=== PATIENT | female | born 1955 | race Caucasian/White ===

== ENCOUNTER 2016-11-07 03:09 | Emergency (ER) | payer OTHER ==
--- NOTE | 2016-11-07 04:30 | PDOC ---
History of Present Illness - General Stated Complaint: SEVERE PAIN Time Seen by Provider: 11/07/16 04:08 Past History - Past Medical History Allergies/Adverse Reactions: Allergies Allergy/AdvReac Type Severity Reaction Status Date / Time No Known Drug Allergies Allergy Verified 11/07/16 04:32 Home Medications: Ambulatory Orders Morphine Sulfate [Cece] 40 mg PO BID 08/26/12 Aspirin [ASA -] 81 mg PO DAILY #30 tab.chew 12/15/13 Carvedilol [Coreg] 25 mg PO BID #60 tablet 12/15/13 Hydralazine HCl 50 mg PO TID #30 tablet 12/15/13 Levetiracetam [Keppra Oral Solution -] 500 mg PO BID #60 cup 12/15/13 Levothyroxine [Synthroid -] 25 mcg PO DAILY #30 tablet 12/15/13 Losartan Potassium [Cozaar -] 100 mg PO DAILY #30 tablet 12/15/13 Metoclopramide HCl [Reglan -] 5 mg PO DAILY #30 tablet 12/15/13 Nifedipine ER [Procardia XL -] 90 mg PO DAILY #30 tab.er.24 12/15/13 Pantoprazole Sodium [Protonix -] 40 mg PO DAILY #30 tablet.ec 12/15/13 Rosuvastatin [Crestor -] 40 mg PO HS #30 tablet 12/15/13 Lidocaine 5% Patch [Lidoderm -] 1 patch TP DAILY #30 patch 11/07/16 Methocarbamol [Robaxin -] 500 mg PO TID #30 tablet 11/07/16 Anemia: No Asthma: No Cancer: No Cardiac Disorders: Yes ([place] 2011 STENTS 5) CVA: No COPD: Yes CHF: No Dementia: No Diabetes: No GI Disorders: Yes (GERD) Disorders: No HTN: Yes Hypercholesterolemia: Yes Liver Disease: No Seizures: Yes (intubation as a result of 1 seizure episode) Thyroid Disease: Yes (HYPOTHYROIDISM) - Surgical History Abdominal Surgery: No Appendectomy: No Cardiac Surgery: Yes (stents x 5) Cholecystectomy: No Lung Surgery: No Neurologic Surgery: No Orthopedic Surgery: Yes (spinal) - Immunization History Td Vaccination: Yes Immunization Up to Date: Yes - Psycho/Social/Smoking Cessation Hx Anxiety: No Suicidal Ideation: No Smoking Status: Yes Smoking History: Current every day smoker Have you smoked in the past 12 months: Yes Number of Cigarettes Smoked Daily: 20 'Breaking Loose' booklet given: 03/13/12 Hx Alcohol Use: No Drug/Substance Use Hx: No Substance Use Type: None Hx Substance Use Treatment: No Review of Systems - Review of Systems HEENTM: No: Symptoms Reported, See HPI, Eye Pain, Blurred Vision, Tearing, Recent change in vision, Double Vision, Cataracts, Ear Pain, Ocular Prothesis, Ear Discharge, Nose Pain, Nose Congestion, Tinnitus, Nose Bleeding, Hearing Loss , Throat Pain, Throat Swelling, Mouth Pain, Dental Problems, Difficulty Swallowing, Mouth Swelling, Other Respiratory: Yes: Cough, Stridor, Wheezing, Other (pt is a smoker with copd). No: Symptoms reported, See HPI, Orthopnea, Shortness of Breath, SOB with Exertion, SOB at Rest, Productive cough, Hemoptysis Cardiac (ROS): No: Symptoms Reported, See HPI, Chest Pain, Edema, Irregular Heart Rate, Lightheadedness, Palpitations, Syncope, Chest Tightness, Other ABD/GI: No: Symptoms Reported, See HPI, Abdominal Distended, Abd. Pain w/ defecation, Blood Streaked Bowels, Constipated, Diarrhea, Difficulty Swallowing , Nausea, Poor Appetite, Poor Fluid Intake, Rectal Bleeding, Vomiting, Indigestion, Abdominal cramping, Tarry Stools, Other Musculoskeletal: Yes: Back Pain, Muscle Pain, Joint Stiffness Integumentary: No: Symptoms Reported, See HPI, Bruising, Change in Color, Change in Hair/Nails, Dryness, Erythema, Flushing, Lesions, Lumps, Pallor, Pruritus, Rash, Sweating, Other Neurological: No: Symptoms reported, See HPI, Headache, Numbness, Paresthesia, Pre-Existing Deficit, Seizure, Tingling, Tremors, Weakness, Unsteady Gait, Ataxia, Dizziness, Other *Physical Exam - Physical Exam General Appearance: Yes: Nourished, Thin HEENT: positive: EOMI, NIDHI, Normal ENT Inspection, Normal Voice, Symmetrical, TMs Normal, Pharynx Normal Neck: positive: Trachea midline Respiratory/Chest: positive: Lungs Clear, Normal Breath Sounds Cardiovascular: positive: Regular Rhythm, Regular Rate, S1, S2 Gastrointestinal/Abdominal: positive: Normal Bowel Sounds, Flat, Soft Musculoskeletal: positive: Normal Inspection Extremity: positive: Normal Capillary Refill, Normal Inspection Integumentary: positive: Normal Color, Dry, Warm Neurologic: positive: milling supervisor II-XII NML intact, Fully Oriented, Alert, Normal Mood/ Affect, Normal Response, Motor Strength 09/09 Medical Decision Making - Medical Decision Making 11/07/16 04:31 Patient Name: Meka Duffy Date: 1955 Address: [address] [place] [address] Sex: Female Rx Written Rx Dispensed Drug Quantity Days Supply Prescriber Name 10/14/2016 10/14/2016 oxycodone-acetaminophen 5-325 mg tab 90 30 Miles Huerta MD 10/14/2016 10/14/2016 morphine sulf er 15 mg tablet 30 30 Miles Huerta MD 09/09/2016 09/09/2016 oxycodone-acetaminophen 7.5-325 mg tablet 90 30 Miles Huerta MD 08/10/2016 08/10/2016 oxycodone-acetaminophen 5-325 mg tab 90 30 Miles Huerta MD 07/11/2016 07/11/2016 oxycodone-acetaminophen 5-325 mg tab 60 30 Miles Huerta MD 06/22/2016 06/23/2016 morphine sulfate ir 15 mg tab 60 30 Miles Huerta MD 06/22/2016 06/22/2016 nucynta 50 mg tablet 30 15 Miles Huerta MD 06/08/2016 06/08/2016 oxycodone-acetaminophen 7.5-325 mg tablet 90 30 Miles Huerta MD 05/24/2016 05/27/2016 oxycodone-acetaminophen 7.5-325 mg tablet 14 7 Linda Millan MD 05/24/2016 05/24/2016 morphine sulf er 15 mg tablet 60 30 Linda Millan MD 04/29/2016 04/30/2016 morphine sulf er 15 mg tablet 50 25 Miles Huerta MD 04/29/2016 04/30/2016 oxycodone-acetaminophen 5-325 mg tab 60 30 Miles Huerta MD 04/06/2016 04/06/2016 morphine sulf er 15 mg tablet 60 30 Linda Millan MD 04/06/2016 04/06/2016 oxycodone-acetaminophen 5-325 mg tab 60 30 Linda Millan MD 03/08/2016 03/09/2016 oxycodone-acetaminophen 5-325 mg tab 60 30 MontyLinda cotto MD 03/08/2016 03/09/2016 morphine sulf er 15 mg tablet 60 30 Monty, Linda VELÁSQUEZ 02/05/2016 02/05/2016 oxycodone-acetaminophen 5-325 mg tab 60 30 Miles Huerta MD 02/05/2016 02/05/2016 morphine sulf er 15 mg tablet 50 25 Miles Huerta MD 01/06/2016 01/06/2016 oxycodone-acetaminophen 5-325 mg tab 70 23 Monty, Linda VELÁSQUEZ 01/06/2016 01/06/2016 morphine sulf er 15 mg tablet 60 30 Monty, Linda VELÁSQUEZ 12/09/2015 12/09/2015 oxycodone-acetaminophen 5-325 mg tab 60 30 Monty, Linda VELÁSQUEZ 12/09/2015 12/09/2015 morphine sulf er 15 mg tablet 60 30 Monty, Linda VELÁSQUEZ 11/25/2015 11/26/2015 zaleplon 5 mg capsule 30 30 Anabela Zabala MD 11/07/16 05:31 Pt comes with chronic back pains and states that her meds are not working. She has sufficient meds at home. We discussed the dancers of narcotic meds. She is willing to try toradol and muscle relaxants here. I will send her home with lidoderm patch and muscle relaxants. *DC/Admit/Observation/Transfer Diagnosis at time of Disposition: Sciatica - Discharge Dispostion Disposition: HOME Condition at time of disposition: Stable Admit: No - Prescriptions Prescriptions: Lidocaine 5% Patch [Lidoderm -] 1 patch TP DAILY #30 patch Methocarbamol [Robaxin -] 500 mg PO TID #30 tablet - Referrals Referrals: Kareem Zabala MD [Primary Care Provider] - - Patient Instructions Printed Discharge Instructions: Managing Chronic Low Back Pain
[2016-11-07] MEDS ORDERED: KETOROLAC TROMETHAMINE 60 MG/2 ML VIAL IM ONE (04:31)
[2016-11-07] MEDS ORDERED: METHOCARBAMOL 500 MG TABLET PO ONE (04:32)
[2016-11-07] MEDS ORDERED: KETOROLAC TROMETHAMINE 60 MG/2 ML VIAL ONE (04:37)
[2016-11-07] MEDS ORDERED: METHOCARBAMOL 500 MG TABLET ONE (04:37)
[2016-11-07 04:40] VITALS: BP 161/98; PULSE 73; TEMP 97.6; BMI 18.8
== END 2016-11-07 04:49 | disposition home or self-care (01) ==
LOC: JER 03:09
PROC: 3E0233Z Introduction of Anti-inflammatory into Muscle, Percutaneous Approach (ICD-10-PCS; principal; 2016-11-07)
DX: M54.40 Lumbago with sciatica, unspecified side (principal); I25.2 Old myocardial infarction; I11.9 Hypertensive heart disease without heart failure; F17.210 Nicotine dependence, cigarettes, uncomplicated; Z95.5 Presence of coronary angioplasty implant and graft; J44.9 Chronic obstructive pulmonary disease, unspecified; K21.9 Gastro-esophageal reflux disease without esophagitis; E03.9 Hypothyroidism, unspecified; E78.00 Pure hypercholesterolemia, unspecified; Z86.69 Personal history of other diseases of the nervous system and sense organs
CPT/HCPCS: 96372; 99282-25

== ENCOUNTER 2017-03-26 07:21 | Inpatient (IN) | payer MEDICARE, OTHER ==
[2017-03-26] MEDS ORDERED: ONDANSETRON 4 MG/2 ML VIAL IVPUSH ONE (07:36)
[2017-03-26] MEDS ORDERED: SODIUM CHLORIDE 1,000 ML IV STA (07:36)
--- NOTE | 2017-03-26 07:38 | PDOC ---
History of Present Illness - General Chief Complaint: Seizure Stated Complaint: SEIZURE Time Seen by Provider: 03/26/17 07:27 - History of Present Illness Initial Comments: 03/26/17 08:10 The patient is a 61 year old female with a history of HTN, HLD, Seizures, Pancreatitis with cyclical vomiting syndrome who presents for evaluation following a seizure. The patient is accompanied by her son who assists in providing the history. The son reports that he found the patient in a post- ictal state this morning immediately after an witnessed seizure. They report that the patient has been having multiple episodes of non-bilious, non-bloody vomiting over the past 3-4 days due to her cyclical vomiting syndrome. They state that the patient's last seizure was over 2 years ago and that this is how the patient usually presents with seizures. They state that she goes through bouts of cyclical vomiting and then has a seizure. She reports that she is on keppra and is compliant with her medication. She denies any fevers, chills, SOB , chest pain, abdominal pain, or changes with urination or bowel movements. Past History - Past Medical History Allergies/Adverse Reactions: Allergies Allergy/AdvReac Type Severity Reaction Status Date / Time No Known Drug Allergies Allergy Verified 03/26/17 07:30 Home Medications: Ambulatory Orders Carvedilol [Coreg -] 12.5 mg PO BID 03/26/17 Ibuprofen 600 mg PO DAILY 03/26/17 Levetiracetam [Keppra -] 500 mg PO Q12H 03/26/17 Levothyroxine [Synthroid -] 25 mcg PO DAILY 03/26/17 Losartan Potassium 100 mg PO DAILY 03/26/17 Morphine Sulfate 15 mg PO DAILY 03/26/17 Nifedipine ER [Procardia Xl -] 60 mg PO DAILY 03/26/17 Oxycodone HCl/Acetaminophen [Percocet 5-325 mg Tablet] 1 tab PO BID PRN Anemia: No Asthma: No Cancer: No Cardiac Disorders: Yes ([place] 2010 STENTS 5) CVA: No COPD: Yes CHF: No DVT: No Dementia: No Diabetes: No GI Disorders: Yes (GERD) Disorders: No HTN: Yes Hypercholesterolemia: Yes Liver Disease: No Seizures: Yes (intubation as a result of 1 seizure episode) Thyroid Disease: Yes (HYPOTHYROIDISM) - Surgical History Abdominal Surgery: No Appendectomy: No Cardiac Surgery: Yes (stents x 5) Cholecystectomy: No Lung Surgery: No Neurologic Surgery: No Orthopedic Surgery: Yes (spinal) - Immunization History Td Vaccination: Yes Immunization Up to Date: Yes - Suicide/Smoking/Psychosocial Hx Smoking Status: Yes Smoking History: Current every day smoker Have you smoked in the past 12 months: Yes Number of Cigarettes Smoked Daily: 20 Information on smoking cessation initiated: No 'Breaking Loose' booklet given: 03/13/12 Hx Alcohol Use: No Drug/Substance Use Hx: No Substance Use Type: None Hx Substance Use Treatment: No Review of Systems - Review of Systems Comments:: 03/26/17 08:18 Constitutional: No fevers, chills, fatigue, malaise HEENT: No Rhinorrhea, nasal congestion, visual changes Cardiovascular: No chest pain, syncope, palpitations, lightheadedness Respiratory: No Cough, SOB, Hemoptysis, Gastrointestinal: Nausea, vomiting. No Abdominal pain, Constipation, Diarrhea, Melena Genitourinary: No Dysuria, Frequency, Urgency, Hesitancy, Hematuria, Flank pain Musculoskeletal: No Myalgia, arthralgia Skin: No rashes, bruising, pallor Neurologic: Seizure. No Headache, Dizziness, Numbness, Weakness, or Tingling Psychiatric: No Hallucinations. No SI or HI *Physical Exam - Vital Signs Last Vital Signs Temp Pulse Resp BP Pulse Ox 97.9 F 77 17 178/85 96 03/26/17 07:25 03/26/17 07:25 03/26/17 07:25 03/26/17 07:25 03/26/17 07:25 - Physical Exam Comments: 03/26/17 08:19 General Appearance: Nourished. No Apparent Distress HEENT: EOMI, NIDHI. No Pharyngeal Erythema, Tonsillar Exudate, Tonsillar Erythema Neck: No Cervical Lymphadenopathy Respiratory/Chest: Lungs Clear, Normal Breath Sounds. No Crackles, Rales, Rhonchi, Wheezing Cardiovascular: Regular Rhythm, Regular Rate. No Murmur, Gallops, Rubs Gastrointestinal/Abdominal: Normal Bowel Sounds, Soft. No Guarding, Rebound, Tenderness Musculoskeletal: No CVA Tenderness Extremity: Normal Capillary Refill Integumentary: Normal Color, Dry, Warm Neurologic: template reproduction technician II-XII NML intact, Fully Oriented, Alert, Normal Mood/Affect, Normal Response, Motor Strength 5/5. Heart Score/ECG Review #1 ECG reviewed & interpreted by me at: 14:20 General ECG Interpretation: Sinus Rhythm, Normal Rate, Normal Intervals, No acute ischemic changes Compared to previous ECG there are: No significant change (12/10/13) ED Treatment Course - LABORATORY CBC & Chemistry Diagram: 03/26/17 07:45 03/26/17 09:00 - RADIOLOGY Radiology Studies Ordered: Category Date Time Status CHEST PA & LAT [RAD] Stat Radiology 03/26/17 07:35 Ordered Medical Decision Making - Medical Decision Making 03/26/17 08:20 The patient is a 61 year old female with a history of HTN, HLD, Seizures, Pancreatitis with cyclical vomiting syndrome who presents for evaluation following a seizure. Differential includes but is not limited to: Primary seizure disorder, acs, pneumonia, uti, infectious, metabolic derangement. Given the patient's history, it is likely her symptoms are due to her primary seizure disorder in the setting of her vomiting. We have a low suspicion for acs at this time, but will send a cbc, cmp, lipase, troponin, UA and chest plain film to evaluate for other etiologies. We will treat her with pepcid, zofran, and iv fluids and continue to monitor and reassess. 03/26/17 09:22 Patient had a witnessed generalized tonic clonic seizure here in the ED that lasted for approximately 1 min. Patient was placed on a non-rebreather. She was given 2 mg of iv ativan and started on 500mg of keppra. The patient's daughter reports that the patient has been having headaches over the past few weeks. Given her second seizure today, we will obtain a head ct to evaluate further. The patient will likely require admission for further management of her symptoms and possible medication adjustment given that this is her second seizure in one day. The patient's family informed us that the patient's primary is Dr. Kareem Zabala. 03/26/17 10:10 cbc, demonstrates a wbc elevation to 13.5. cmp is remarkable for a hyponatremia of 123 and potassium of 3.1. Chest plain film is does not demonstrate any acute process as read by our radiologist. We discussed the case with Dr. Crespo with Neurology who has been made aware of the case. He recommended starting the patient on 750mg of Keppra BID starting this evening after admission. 03/26/17 11:03 We discussed with the ICU SENIOR DIRECTOR MARKETING who believes the patient is safe for tele floor admission. We agree given the patient's clinical status. Dr. Sy has been paged for admission. Awaiting call back. 03/26/17 11:07 Discussed the patient with Dr. Sy who accepted the patient for admission. 03/26/17 12:[address] does not demonstrate any acute processes as read by our radiologist. *DC/Admit/Observation/Transfer Diagnosis at time of Disposition: Seizure, Hyponatremia - Discharge Dispostion Condition at time of disposition: Guarded Admit: Yes - Referrals - Patient Instructions - Post Discharge Activity
[2017-03-26] MEDS ORDERED: FAMOTIDINE 20 MG/50 ML IVPB 20 MG/50 ML MG IVPB ONE ×2 (07:45→07:54)
[2017-03-26] MEDS ORDERED: ONDANSETRON 4 MG/2 ML VIAL ONE (07:53)
--- NOTE | 2017-03-26 08:20 | PDOC ---
Attending Attestation - Resident Resident Name: Lucas Wilks - ED Attending Attestation I have performed the following: I have examined & evaluated the patient, The case was reviewed & discussed with the resident, I agree w/resident's findings & plan, Exceptions are as noted - HPI HPI: 03/26/17 08:17 78-year-old female history of cyclical vomiting, chronic pancreatitis, seizure disorder on 500 mg of Keppra twice a day, adherent to her medications managed by her primary care physician presents to the emergency department for rule out seizure. This was witnessed by her son. Patient reports that she has been vomiting which is chronic for her. Today, patient had no recollection but her son witnessed short episode of seizure. She was postictal and now is back to baseline. Patient is no pain at this time. Denies recent illnesses, fevers, chills, cough. - Physicial Exam PE: 03/26/17 08:18 GENERAL: Awake, alert, and fully oriented, in no acute distress. HEAD: No signs of trauma EYES: PERRLA, EOMI, sclera anicteric, conjunctiva clear ENT: Auricles normal inspection NECK: Normal ROM, supple LUNGS: Breath sounds equal, clear to auscultation bilaterally. No wheezes, and no crackles HEART: Regular rate and rhythm, normal S1 and S2, no murmurs, rubs or gallops ABDOMEN: Soft, nontender, normoactive bowel sounds. No guarding, no rebound. No masses EXTREMITIES: Normal range of motion, no edema. No clubbing or cyanosis. No cords, erythema, or tenderness NEUROLOGICAL: Cranial nerves II through XII intact. Normal speech. 5/5 strength upper and lower extremities. Sensation intact throughout. SKIN: Warm, Dry, normal turgor, no rashes or lesions noted. - Critical Care Time Total Critical Care Time: 35 Critical Care Statement: The care of this patient involved high complexity decision making to prevent further life threatening deterioration of the patient 's condition and/or to evaluate & treat vital organ system(s) failure or risk of failure. - Medical Decision Making 03/26/17 08:19 Vital Signs Temp Pulse Resp BP Pulse Ox 97.9 F 77 16 178/85 96 03/26/17 07:25 03/26/17 07:25 03/26/17 08:09 03/26/17 07:25 03/26/17 08:07 The patient is back to her baseline. I suspect this is likely her primary epilepsy disorder. However, rule out secondary causes such as metabolic disarray. Low suspicion for acute coronary syndrome. If workup is negative and the patient feels well, patient be discharged home with her family with primary care physician follow-up. 03/26/17 09:20 CBC, BMP 03/26/17 07:45 Approx 9:15 am, patient had another witnessed grand mal seizure. Pt was given IV ativan, and seizures had stopped. 500 mg IV keppra ordered. Pt is now post ictal but protecting airway. Pt's family tells us that she has had headaches for the last several days. Given that patient has not have a last seizure 2 years, will obtain a head CT. Ultimately, patient should be admitted to the hospital with neurology consultation. 03/26/17 12:03 CMP Sodium 123 mmol/L (136-145) L* D 03/26/17 09:00 Potassium 3.1 mmol/L (3.5-5.1) L 03/26/17 09:00 Chloride 85 mmol/L (98-107) L D 03/26/17 09:00 Carbon Dioxide 30 mmol/L (21-32) 03/26/17 09:00 Anion Gap 8 (8-16) 03/26/17 09:00 BUN 5 mg/dL (7-18) L 03/26/17 09:00 Creatinine 0.8 mg/dL (0.55-1.02) 03/26/17 09:00 Creat Clearance w eGFR > 60 (>60) 03/26/17 09:00 Random Glucose 115 mg/dL (74-106) H 03/26/17 09:00 Calcium 7.9 mg/dL (8.5-10.1) L 03/26/17 09:00 Total Bilirubin 0.5 mg/dL (0.2-1.0) D 03/26/17 09:00 AST 17 U/L (15-37) 03/26/17 09:00 ALT 11 U/L (12-78) L 03/26/17 09:00 Alkaline Phosphatase 127 U/L (45-117) H D 03/26/17 09:00 Creatine Kinase 134 IU/L (26-192) 03/26/17 09:00 Troponin I 0.02 ng/ml (0.00-0.05) 03/26/17 09:00 Total Protein 6.1 g/dl (6.4-8.2) L D 03/26/17 09:00 Albumin 3.1 g/dl (3.4-5.0) L D 03/26/17 09:00 Lipase 118 U/L (73-393) 03/26/17 09:00 Noted to have a Sodium of 123. Pt already received 1L of IV NS. Will need to take caution with IVF given risk of central pontine myelosis. Head CT reviewed and is negative. Case discussed with Dr. Crespo with Dr. Wilks Recommends 750 mg IV keppra. Case discussed with ICU DINING SERVICES MANAGER Eder, who states that if patient head CT negative and does not have repeat seizures, pt cleared for telemetry admission. Will admit patient to telemetry. <Eyal Pruitt - Last Filed: 03/26/17 12:03> - Medical Decision Making 03/26/17 09:37 Dr. Crespo, neurologist, was paged requesting a call back for doctor to doctor consult. 03/26/17 10:04 Dr. Crespo, neurologist, was paged a second time requesting a call back for doctor to doctor consult. 03/26/17 12:59 Family Contact Information: 1st) Kolton Duffy ([phone]) 2nd) Ivonne Rome (C: [phone]/H: [phone]) <Padmini Wild - Last Filed: 03/26/17 13:00> Heart Score/ECG Review #1 ECG reviewed & interpreted by me at: 07:25 03/26/17 08:19 NSR 77, LVH, TWI III, avF, no std/geoff, QTC 475 msec <Eyal Pruitt - Last Filed: 03/26/17 12:03>
[2017-03-26 08:33] LABS: BASOPHIL 0.7 % (0-2.0); EOSINOPHIL 0.6 % (0-4.5); MCH 32.4 pg (25.7-33.7); MCHC 35.3 g/dl (32.0-36.0); MEAN CELL VOLUME 91.8 fl (80-96); NEUTROPHILS 60.7 % (42.8-82.8); PLATELET COUNT 356 K/MM3 (134-434); RDW 13.4 % (11.6-15.6); WHITE BLOOD COUNT 13.8 K/mm3 (4.0-10.0)
[2017-03-26] MEDS ORDERED: LORazepam 2 MG/ML SDV VIAL ONE ×3 (09:08→10:35)
[2017-03-26] MEDS ORDERED: levETIRAcetam 500 MG/5 ML INJECTION VIAL IVPB ONE ×2 (09:09→09:16)
[2017-03-26] MEDS ORDERED: HEMOQUE CONTROL SOLUTION ONE (09:16)
[2017-03-26 09:32] LABS: ALBUMIN 3.1 g/dl (3.4-5.0); ANION GAP 8 (8-16); BILIRUBIN,TOTAL 0.5 mg/dL (0.2-1.0); CALCIUM 7.9 mg/dL (8.5-10.1); CO2 30 mmol/L (21-32); CREATININE 0.8 mg/dL (0.55-1.02); GLUCOSE,RANDOM 115 mg/dL (74-106); SGOT/AST 17 U/L (15-37); SGPT/ALT 11 U/L (12-78); TOT PROT 6.1 g/dl (6.4-8.2)
[2017-03-26 09:33] LABS: ALK PHOS 127 U/L (45-117); TROPONIN I 0.02 ng/ml (0.00-0.05)
[2017-03-26 11:21] LABS: URINE APPEARANCE CLEAR; URINE BILIRUBIN NEGATIVE (NEGATIVE); URINE BLOOD NEGATIVE (NEGATIVE); URINE COLOR STRAW; URINE GLUCOSE (UA) NEGATIVE (NEGATIVE); URINE KETONE NEGATIVE (NEGATIVE); URINE NITRITE NEGATIVE (NEGATIVE); URINE PROTEIN NEGATIVE (NEGATIVE); URINE UROBILINOGEN NEGATIVE mg/dL (0.2-1.0)
[2017-03-26 13:33] VITALS: BMI 17.6
[2017-03-26 14:04] LABS: URINE LEUK ESTERASE Negative (NEGATIVE)
--- NOTE | 2017-03-26 15:48 | CONSULT ---
Consult - text type - Consultation Consultation Note: Neurology History of Present Illness The patient is a 61 year old female with a history of HTN, HLD, Seizures, Pancreatitis with cyclical vomiting syndrome who presented for evaluation following a seizure. The son reported that he found the patient in a post- ictal state morning of admission immediately after an witnessed seizure. Reportedly, the patient had been having multiple episodes of non-bilious, non- bloody vomiting over the past 3-4 days due to her cyclical vomiting syndrome. They state that the patient's last seizure was over 2 years ago and that this is how the patient usually presents with seizures. They state that she goes through bouts of cyclical vomiting and then has a seizure. She reports that she is on keppra and is compliant with her medication. CT head reviewed and did not show acute changes. I had spoken to the ER earlier and labs were notable for Hyponatremia and Hypokalemia, both of which can precipitate seizures. However, i did recommend increasing Keppra to 750mg twice daily because she had a second seizure on admission. Correcting underlying electrolyte abnormalities would be most effecting in preventing subsequent seizures. Admitted for further observation and management. Past History - Past Medical History Allergies/Adverse Reactions: Allergies Allergy/AdvReac Type Severity Reaction Status Date / Time No Known Drug Allergies Allergy Verified 03/26/17 07:30 Home Medications: Ambulatory Orders Carvedilol [Coreg -] 12.5 mg PO BID 03/26/17 Ibuprofen 600 mg PO DAILY 03/26/17 Levetiracetam [Keppra -] 500 mg PO Q12H 03/26/17 Levothyroxine [Synthroid -] 25 mcg PO DAILY 03/26/17 Losartan Potassium 100 mg PO DAILY 03/26/17 Morphine Sulfate 15 mg PO DAILY 03/26/17 Nifedipine ER [Procardia Xl -] 60 mg PO DAILY 03/26/17 Oxycodone HCl/Acetaminophen [Percocet 5-325 mg Tablet] 1 tab PO BID PRN Anemia: No Asthma: No Cancer: No Cardiac Disorders: Yes (AR 2010 STENTS 5) CVA: No COPD: Yes CHF: No DVT: No Dementia: No Diabetes: No GI Disorders: Yes (GERD) Disorders: No HTN: Yes Hypercholesterolemia: Yes Liver Disease: No Seizures: Yes (intubation as a result of 1 seizure episode) Thyroid Disease: Yes (HYPOTHYROIDISM) - Surgical History Abdominal Surgery: No Appendectomy: No Cardiac Surgery: Yes (stents x 5) Cholecystectomy: No Lung Surgery: No Neurologic Surgery: No Orthopedic Surgery: Yes (spinal) - Immunization History Td Vaccination: Yes Immunization Up to Date: Yes - Suicide/Smoking/Psychosocial Hx Smoking Status: Yes Smoking History: Current every day smoker Have you smoked in the past 12 months: Yes Number of Cigarettes Smoked Daily: 20 Information on smoking cessation initiated: No 'Breaking Loose' booklet given: 03/13/12 Hx Alcohol Use: No Drug/Substance Use Hx: No Substance Use Type: None Hx Substance Use Treatment: No Review of Systems Constitutional: No fevers, chills, fatigue, malaise HEENT: No Rhinorrhea, nasal congestion, visual changes Cardiovascular: No chest pain, syncope, palpitations, lightheadedness Respiratory: No Cough, SOB, Hemoptysis, Gastrointestinal: Nausea, vomiting. No Abdominal pain, Constipation, Diarrhea, Melena Genitourinary: No Dysuria, Frequency, Urgency, Hesitancy, Hematuria, Flank pain Musculoskeletal: No Myalgia, arthralgia Skin: No rashes, bruising, pallor Neurologic: Seizure. No Headache, Dizziness, Numbness, Weakness, or Tingling Psychiatric: No Hallucinations. No SI or HI *Physical Exam - Vital Signs Last Vital Signs Temp Pulse Resp BP Pulse Ox 97.9 F 77 17 178/85 96 03/26/17 07:25 03/26/17 07:25 03/26/17 07:25 03/26/17 07:25 03/26/17 07:25 General Appearance: Nourished. No Apparent Distress HEENT: EOMI, NIDHI. No Pharyngeal Erythema, Tonsillar Exudate, Tonsillar Erythema Neck: No Cervical Lymphadenopathy Respiratory/Chest: Lungs Clear, Normal Breath Sounds. No Crackles, Rales, Rhonchi, Wheezing Cardiovascular: Regular Rhythm, Regular Rate. No Murmur, Gallops, Rubs Gastrointestinal/Abdominal: Normal Bowel Sounds, Soft. No Guarding, Rebound, Tenderness Musculoskeletal: No CVA Tenderness Extremity: Normal Capillary Refill Integumentary: Normal Color, Dry, Warm Neurologic: tape making machine operator II-XII NML intact, Fully Oriented, Alert, Normal Mood/Affect, Normal Response, Motor Strength 5/5. Heart Score/ECG Review #1 ECG reviewed & interpreted by me at: 14:20 General ECG Interpretation: Sinus Rhythm, Normal Rate, Normal Intervals, No acute ischemic changes Compared to previous ECG there are: No significant change (12/10/13) CBCD WBC 13.8 K/mm3 (4.0-10.0) H D 03/26/17 07:45 RBC 4.86 M/mm3 (3.60-5.2) D 03/26/17 07:45 Hgb 15.8 GM/dL (10.7-15.3) H D 03/26/17 07:45 Hct 44.6 % (32.4-45.2) D 03/26/17 07:45 MCV 91.8 fl (80-96) 03/26/17 07:45 MCHC 35.3 g/dl (32.0-36.0) 03/26/17 07:45 RDW 13.4 % (11.6-15.6) 03/26/17 07:45 Plt Count 356 K/MM3 (134-434) D 03/26/17 07:45 MPV 8.0 fl (7.5-11.1) 03/26/17 07:45 CMP Sodium 123 mmol/L (136-145) L* D 03/26/17 09:00 Potassium 3.1 mmol/L (3.5-5.1) L 03/26/17 09:00 Chloride 85 mmol/L (98-107) L D 03/26/17 09:00 Carbon Dioxide 30 mmol/L (21-32) 03/26/17 09:00 Anion Gap 8 (8-16) 03/26/17 09:00 BUN 5 mg/dL (7-18) L 03/26/17 09:00 Creatinine 0.8 mg/dL (0.55-1.02) 03/26/17 09:00 Creat Clearance w eGFR > 60 (>60) 03/26/17 09:00 Calcium 7.9 mg/dL (8.5-10.1) L 03/26/17 09:00 Total Bilirubin 0.5 mg/dL (0.2-1.0) D 03/26/17 09:00 AST 17 U/L (15-37) 03/26/17 09:00 ALT 11 U/L (12-78) L 03/26/17 09:00 Alkaline Phosphatase 127 U/L (45-117) H D 03/26/17 09:00 Total Protein 6.1 g/dl (6.4-8.2) L D 03/26/17 09:00 Albumin 3.1 g/dl (3.4-5.0) L D 03/26/17 09:00 CT head reviewed Medical Decision Making 61 year old female with a history of HTN, HLD, Seizures, Pancreatitis with cyclical vomiting syndrome who presented for evaluation following a seizure. The son reported that he found the patient in a post-ictal state morning of admission immediately after an witnessed seizure. Reportedly, the patient had been having multiple episodes of non-bilious, non-bloody vomiting over the past 3-4 days due to her cyclical vomiting syndrome. They state that the patient's last seizure was over 2 years ago and that this is how the patient usually presents with seizures. They state that she goes through bouts of cyclical vomiting and then has a seizure. She reports that she is on keppra and is compliant with her medication. I had spoken to the ER earlier and labs were notable for Hyponatremia and Hypokalemia, both of which can precipitate seizures. Recommend increasing Keppra to 750mg twice daily because she had a second seizure on admission. Correcting underlying electrolyte abnormalities would be most effecting in preventing subsequent seizures. Admitted for further observation and management Anti-emetics for cyclic vomiting Increased PO/IV hydration Monitor BP, maintain < 140/90 Continue losartan, coreg, procardia recheck electrolytes Monitor for seizures Ativan PRN
--- NOTE | 2017-03-26 21:54 | HP ---
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 Cardiovascular: Yes: CAD, HTN, Hyperlipdemia, PA, Other (carotid artery disease s/p CEA) Pulmonary: Yes: COPD Gastrointestinal: Yes: Constipation Musculoskeletal: Yes: Chronic low back pain - Past Surgical History Past Surgical History: Yes: Carotid Endarterectomy - Smoking History Smoking history: Current every day smoker Have you smoked in the past 12 months: Yes Aproximately how many cigarettes per day: 20 - Alcohol/Substance Use Hx Alcohol Use: No Number of Drinks Daily: 10 History of Substance Use: reports: Marijuana (Daily), Prescription (morphine 75 mg per day) - Social History ADL: Independent Home Medications - Allergies Allergies/Adverse Reactions: Allergies Allergy/AdvReac Type Severity Reaction Status Date / Time No Known Drug Allergies Allergy Verified 03/26/17 07:30 - Home Medications Home Medications: Ambulatory Orders Carvedilol [Coreg -] 12.5 mg PO BID 03/26/17 Ibuprofen 600 mg PO DAILY 03/26/17 Levetiracetam [Keppra -] 500 mg PO Q12H 03/26/17 Levothyroxine [Synthroid -] 25 mcg PO DAILY 03/26/17 Losartan Potassium 100 mg PO DAILY 03/26/17 Losartan/Hydrochlorothiazide [Losartan-Hctz 50-12.5 mg Tab] 1 each PO DAILY Metoclopramide HCl 5 mg PO DAILY 03/26/17 Morphine Sulfate 15 mg PO DAILY 03/26/17 Nifedipine ER [Procardia XL -] 60 mg PO DAILY 03/26/17 Oxycodone HCl/Acetaminophen [Percocet 5-325 mg Tablet] 1 tab PO BID PRN Levetiracetam [Keppra -] 750 mg PO BID #60 tablet 03/29/17 Physical Examination Vital Signs: Vital Signs Temperature 98.5 F 03/26/17 15:54 Pulse Rate 76 03/26/17 16:30 Respiratory Rate 20 03/26/17 16:30 Blood Pressure 170/80 03/26/17 16:30 O2 Sat by Pulse Oximetry (%) 100 03/26/17 15:54 Labs: CBC, BMP 03/26/17 07:45 03/26/17 09:00 Problem List - Problems (1) Chronic pain Code(s): G89.29 - OTHER CHRONIC PAIN (2) Cyclic vomiting syndrome Code(s): G43.A0 - CYCLICAL VOMITING, NOT INTRACTABLE (3) HTN (hypertension) Code(s): I10 - ESSENTIAL (PRIMARY) HYPERTENSION (4) Hypothyroidism Code(s): E03.9 - HYPOTHYROIDISM, UNSPECIFIED (5) Seizure Code(s): R56.9 - UNSPECIFIED CONVULSIONS (6) HLD (hyperlipidemia) Code(s): E78.5 - HYPERLIPIDEMIA, UNSPECIFIED (7) CAD (coronary artery disease) Code(s): I25.10 - ATHSCL HEART DISEASE OF [place] CORONARY ARTERY W/O ANG PCTRS
[2017-03-26] MEDS: oxyCODONE HCL 5 MG TABLET PO PRN (22:48)
[2017-03-26] MEDS: ACETAMINOPHEN 325 MG TABLET (FP) PO PRN (22:49)
[2017-03-26] MEDS: levETIRAcetam 500 MG TABLET (FP) PO SCH (22:50)
[2017-03-26] MEDS: CARVEDILOL 12.5 MG TABLET (FP) PO SCH (22:50)
[2017-03-27] MEDS: LEVOTHYROXINE NA 25 MCG TABLET (FP) PO SCH (06:32)
[2017-03-27 07:44] LABS: BASOPHIL 0.8 % (0-2.0); EOSINOPHIL 0.1 % (0-4.5); MCH 32.6 pg (25.7-33.7); MCHC 34.6 g/dl (32.0-36.0); MEAN CELL VOLUME 94.3 fl (80-96); MEAN PLT VOLUME 7.9 fl (7.5-11.1); NEUTROPHILS 71.1 % (42.8-82.8); PLATELET COUNT 291 K/MM3 (134-434); RDW 13.5 % (11.6-15.6); WHITE BLOOD COUNT 10.9 K/mm3 (4.0-10.0)
[2017-03-27 07:49] LABS: ALBUMIN 2.9 g/dl (3.4-5.0); ANION GAP 9 (8-16); CALCIUM 8.4 mg/dL (8.5-10.1); CO2 31 mmol/L (21-32); GLUCOSE,RANDOM 83 mg/dL (74-106)
[2017-03-27 07:54] LABS: ALK PHOS 123 U/L (45-117); CREATININE 0.8 mg/dL (0.55-1.02); SGOT/AST 17 U/L (15-37); SGPT/ALT 12 U/L (12-78); TOT PROT 5.7 g/dl (6.4-8.2)
[2017-03-27] MEDS ORDERED: POTASSIUM CHLORIDE TABS 20 MEQ TABLET.ER (FP) PO ONE (09:00)
--- NOTE | 2017-03-27 09:31 | PN ---
Progress Note (short form) - Note Progress Note: Neurology History of Present Illness The patient is a 61 year old female with a history of HTN, HLD, Seizures, Pancreatitis with cyclical vomiting syndrome who presented for evaluation following a seizure. The son reported that he found the patient in a post- ictal state morning of admission immediately after an witnessed seizure. Reportedly, the patient had been having multiple episodes of non-bilious, non- bloody vomiting over the past 3-4 days due to her cyclical vomiting syndrome. Reportedly, patient's last seizure was over 2 years ago and that this is how the patient usually presents with seizures. They state that she goes through bouts of cyclical vomiting and then has a seizure. She reports that she is on keppra and is compliant with her medication but was taking it only once per day. CT head reviewed and did not show acute changes. I had spoken to the ER earlier and labs were notable for Hyponatremia and Hypokalemia, both of which can precipitate seizures. However, i had recommend increasing Keppra to 750mg twice daily because she had a second seizure on admission. Correcting underlying electrolyte abnormalities would be most effecting in preventing subsequent seizures. Admitted for further observation and management. Active Medications Acetaminophen (Tylenol -) 325 mg PO Q12H PRN PRN Reason: FEVER OR PAIN Last Admin: 03/26/17 22:49 Dose: 325 mg Carvedilol (Coreg -) 12.5 mg PO BID [facility] Last Admin: 03/26/17 22:50 Dose: 12.5 mg Heparin Sodium (Porcine) (Heparin -) 5,000 unit SQ BID [facility] Influenza Virus Vaccine Quadrival (Flulaval Quad [id number]) 60 mcg IM .ONCE ONE Stop: 03/26/17 13:34 Levetiracetam (Keppra -) 750 mg PO BID [facility] Last Admin: 03/26/17 22:50 Dose: 750 mg Levothyroxine Sodium (Synthroid -) 25 mcg PO ACBK [facility] Last Admin: 03/27/17 06:32 Dose: 25 mcg Lorazepam (Ativan Injection -) 0.5 mg IVPUSH Q6H PRN PRN Reason: seizure Losartan Potassium (Cozaar -) 100 mg PO DAILY [facility] Nifedipine (Procardia Xl -) 60 mg PO DAILY [facility] Ondansetron HCl (Zofran Injection) 4 mg IVPUSH Q8H PRN PRN Reason: NAUSEA Oxycodone HCl (Roxicodone -) 5 mg PO Q12H PRN Last Admin: 03/26/17 22:48 Dose: 5 mg *Physical Exam Vital Signs Period Temp Pulse Resp BP Sys/Ruiz Pulse Ox Last 24 Hr 98 F-98.5 F 60-76 16-20 125-170/50-84 92-100 General Appearance: Nourished. No Apparent Distress HEENT: EOMI, NIDHI. No Pharyngeal Erythema, Tonsillar Exudate, Tonsillar Erythema Neck: No Cervical Lymphadenopathy Respiratory/Chest: Lungs Clear, Normal Breath Sounds. No Crackles, Rales, Rhonchi, Wheezing Cardiovascular: Regular Rhythm, Regular Rate. No Murmur, Gallops, Rubs Gastrointestinal/Abdominal: Normal Bowel Sounds, Soft. 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 CBCD WBC 10.9 K/mm3 (4.0-10.0) H 03/27/17 06:20 RBC 4.34 M/mm3 (3.60-5.2) 03/27/17 06:20 Hgb 14.2 GM/dL (10.7-15.3) D 03/27/17 06:20 Hct 40.9 % (32.4-45.2) 03/27/17 06:20 MCV 94.3 fl (80-96) 03/27/17 06:20 MCHC 34.6 g/dl (32.0-36.0) 03/27/17 06:20 RDW 13.5 % (11.6-15.6) 03/27/17 06:20 Plt Count 291 K/MM3 (134-434) 03/27/17 06:20 MPV 7.9 fl (7.5-11.1) 03/27/17 06:20 CMP Sodium 130 mmol/L (136-145) L 03/27/17 06:20 Potassium 3.0 mmol/L (3.5-5.1) L 03/27/17 06:20 Chloride 90 mmol/L (98-107) L 03/27/17 06:20 Carbon Dioxide 31 mmol/L (21-32) 03/27/17 06:20 Anion Gap 9 (8-16) 03/27/17 06:20 BUN 6 mg/dL (7-18) L 03/27/17 06:20 Creatinine 0.8 mg/dL (0.55-1.02) 03/27/17 06:20 Creat Clearance w eGFR > 60 (>60) 03/27/17 06:20 Calcium 8.4 mg/dL (8.5-10.1) L 03/27/17 06:20 Total Bilirubin 1.0 mg/dL (0.2-1.0) D 03/27/17 06:20 AST 17 U/L (15-37) 03/27/17 06:20 ALT 12 U/L (12-78) 03/27/17 06:20 Alkaline Phosphatase 123 U/L (45-117) H 03/27/17 06:20 Total Protein 5.7 g/dl (6.4-8.2) L 03/27/17 06:20 Albumin 2.9 g/dl (3.4-5.0) L 03/27/17 06:20 CT head reviewed Medical Decision Making 61 year old female with a history of HTN, HLD, Seizures, Pancreatitis with cyclical vomiting syndrome who presented for evaluation following a seizure. The son reported that he found the patient in a post-ictal state morning of admission immediately after an witnessed seizure. Reportedly, the patient had been having multiple episodes of non-bilious, non-bloody vomiting over the past 3-4 days due to her cyclical vomiting syndrome. They state that the patient's last seizure was over 2 years ago and that this is how the patient usually presents with seizures. They state that she goes through bouts of cyclical vomiting and then has a seizure. She reports that she is on keppra and is compliant with her medication but only once per day. I had spoken to the ER earlier and labs were notable for Hyponatremia and Hypokalemia, both of which can precipitate seizures. Recommend increasing Keppra to 750mg twice daily because she had a second seizure on admission. Informed her to take it twice daily Correcting underlying electrolyte abnormalities would be most effecting in preventing subsequent seizures Sodium improved to 130 Anti-emetics for cyclic vomiting Increased PO/IV hydration Monitor BP, maintain < 140/90 Continue losartan, coreg, procardia Monitor electrolytes Seizures stabilized Ativan PRN
[2017-03-27] MEDS: HEPARIN NA (PORCINE) 5,000 UNITS/ML 1ML VIAL SQ SCH ×2 (09:42→21:23)
[2017-03-27] MEDS: LOSARTAN POTASSIUM 50 MG TABLET (FP) PO SCH (09:42)
[2017-03-27] MEDS: levETIRAcetam 500 MG TABLET (FP) PO SCH ×2 (09:42→21:21)
[2017-03-27] MEDS: CARVEDILOL 12.5 MG TABLET (FP) PO SCH ×2 (09:42→21:21)
[2017-03-27] MEDS: NIFEdipine E.R 60 MG TABLET (UD) PO SCH (09:43)
--- NOTE | 2017-03-27 09:51 | EKG ---
Test Reason : Blood Pressure : / mmHG Vent. Rate : 077 BPM Atrial Rate : 077 BPM P-R Int : 174 ms QRS Dur : 090 ms QT Int : 420 ms P-R-T Axes : 068 066 060 degrees QTc Int : 475 ms NORMAL SINUS RHYTHM MINIMAL VOLTAGE CRITERIA FOR LVH, MAY BE NORMAL VARIANT SEPTAL INFARCT , AGE UNDETERMINED ABNORMAL ECG WHEN COMPARED WITH ECG OF 10-DEC-2013 17:39, T WAVE INVERSION NO LONGER EVIDENT IN ANTERIOR LEADS Confirmed by LIEN FOLEY MD ([id number]) on 03/27/2017 9:50:51 AM Referred By: Confirmed By:LIEN FOLEY MD
[2017-03-27] MEDS ORDERED: PATIENT'S OWN MEDICATION (NON-FORMULARY) (Losartan Potassium [Losartan Potassium] 100 MG) PO SCH (10:00)
[2017-03-27] MEDS: ACETAMINOPHEN 325 MG TABLET (FP) PO PRN ×2 (12:26→21:22)
[2017-03-27] MEDS: oxyCODONE HCL 5 MG TABLET PO PRN ×2 (12:27→21:21)
[2017-03-27] MEDS ORDERED: FLU VACCINE QUAD 60 MCG/0.5 ML (MDV 17-18) IM ONE (18:00)
[2017-03-27] MEDS: POTASSIUM CHLORIDE TABS 20 MEQ TABLET.ER (FP) PO SCH (21:21)
[2017-03-27] MEDS: ONDANSETRON 4 MG/2 ML VIAL IVPUSH PRN (21:32)
--- NOTE | 2017-03-27 22:38 | PN ---
Progress Note, Physician - Current Medication List Current Medications: Active Medications Acetaminophen (Tylenol -) 325 mg PO Q12H PRN PRN Reason: FEVER OR PAIN Last Admin: 03/27/17 12:26 Dose: 325 mg Acetaminophen (Tylenol -) 650 mg PO Q6H PRN PRN Reason: HEADACHE Last Admin: 03/27/17 21:22 Dose: 650 mg Carvedilol (Coreg -) 12.5 mg PO BID [facility] Last Admin: 03/27/17 21:21 Dose: 12.5 mg Heparin Sodium (Porcine) (Heparin -) 5,000 unit SQ BID [facility] Last Admin: 03/27/17 21:23 Dose: 5,000 unit Levetiracetam (Keppra -) 750 mg PO BID [facility] Last Admin: 03/27/17 21:21 Dose: 750 mg Levothyroxine Sodium (Synthroid -) 25 mcg PO ACBK [facility] Last Admin: 03/27/17 06:32 Dose: 25 mcg Lorazepam (Ativan Injection -) 0.5 mg IVPUSH Q6H PRN PRN Reason: seizure Losartan Potassium (Cozaar -) 100 mg PO DAILY [facility] Last Admin: 03/27/17 09:42 Dose: 100 mg Nifedipine (Procardia Xl -) 60 mg PO DAILY [facility] Last Admin: 03/27/17 09:43 Dose: 60 mg Ondansetron HCl (Zofran Injection) 4 mg IVPUSH Q8H PRN PRN Reason: NAUSEA Last Admin: 03/27/17 21:32 Dose: 4 mg Oxycodone HCl (Roxicodone -) 5 mg PO Q12H PRN Last Admin: 03/27/17 21:21 Dose: 5 mg Potassium Chloride (K-Dur -) 40 meq PO BID [facility] Last Admin: 03/27/17 21:21 Dose: 40 meq - Objective Vital Signs: Vital Signs Temperature 98.2 F 03/27/17 21:38 Pulse Rate 66 03/27/17 21:38 Respiratory Rate 16 03/27/17 21:38 Blood Pressure 111/50 03/27/17 21:38 O2 Sat by Pulse Oximetry (%) 88 L 03/27/17 09:00 Labs: CBC, BMP 03/27/17 06:20 03/27/17 06:20 Problem List - Problems (1) CAD (coronary artery disease) Code(s): I25.10 - ATHSCL HEART DISEASE OF [place] CORONARY ARTERY W/O ANG PCTRS (2) Chronic pain Code(s): G89.29 - OTHER CHRONIC PAIN (3) Cyclic vomiting syndrome Code(s): G43.A0 - CYCLICAL VOMITING, NOT INTRACTABLE (4) HLD (hyperlipidemia) Code(s): E78.5 - HYPERLIPIDEMIA, UNSPECIFIED (5) HTN (hypertension) Code(s): I10 - ESSENTIAL (PRIMARY) HYPERTENSION (6) Hypothyroidism Code(s): E03.9 - HYPOTHYROIDISM, UNSPECIFIED (7) Seizure Code(s): R56.9 - UNSPECIFIED CONVULSIONS
[2017-03-28] MEDS: LEVOTHYROXINE NA 25 MCG TABLET (FP) PO SCH (06:41)
--- NOTE | 2017-03-28 09:49 | PN ---
Progress Note (short form) - Note Progress Note: Neurology History of Present Illness The patient is a 61 year old female with a history of HTN, HLD, Seizures, Pancreatitis with cyclical vomiting syndrome who presented for evaluation following a seizure. The son reported that he found the patient in a post- ictal state morning of admission immediately after an witnessed seizure. Reportedly, the patient had been having multiple episodes of non-bilious, non- bloody vomiting over the past 3-4 days due to her cyclical vomiting syndrome. Reportedly, patient's last seizure was over 2 years ago and that this is how the patient usually presents with seizures. They state that she goes through bouts of cyclical vomiting and then has a seizure. She reports that she is on keppra and is compliant with her medication but was taking it only once per day. CT head reviewed and did not show acute changes. I had spoken to the ER earlier and labs were notable for Hyponatremia and Hypokalemia, both of which can precipitate seizures. However, i had recommend increasing Keppra to 750mg twice daily because she had a second seizure on admission. Correcting underlying electrolyte abnormalities would be most effecting in preventing subsequent seizures. Admitted for further observation and management. No seizures overnight, remains stable. Active Medications Acetaminophen (Tylenol -) 325 mg PO Q12H PRN PRN Reason: FEVER OR PAIN Last Admin: 03/27/17 12:26 Dose: 325 mg Acetaminophen (Tylenol -) 650 mg PO Q6H PRN PRN Reason: HEADACHE Last Admin: 03/27/17 21:22 Dose: 650 mg Carvedilol (Coreg -) 12.5 mg PO BID [facility] Last Admin: 03/27/17 21:21 Dose: 12.5 mg Heparin Sodium (Porcine) (Heparin -) 5,000 unit SQ BID [facility] Last Admin: 03/27/17 21:23 Dose: 5,000 unit Levetiracetam (Keppra -) 750 mg PO BID [facility] Last Admin: 03/27/17 21:21 Dose: 750 mg Levothyroxine Sodium (Synthroid -) 25 mcg PO ACBK [facility] Last Admin: 03/28/17 06:41 Dose: 25 mcg Lorazepam (Ativan Injection -) 0.5 mg IVPUSH Q6H PRN PRN Reason: seizure Losartan Potassium (Cozaar -) 100 mg PO DAILY [facility] Last Admin: 03/27/17 09:42 Dose: 100 mg Nifedipine (Procardia Xl -) 60 mg PO DAILY [facility] Last Admin: 03/27/17 09:43 Dose: 60 mg Ondansetron HCl (Zofran Injection) 4 mg IVPUSH Q8H PRN PRN Reason: NAUSEA Last Admin: 03/27/17 21:32 Dose: 4 mg Oxycodone HCl (Roxicodone -) 5 mg PO Q12H PRN Last Admin: 03/27/17 21:21 Dose: 5 mg Potassium Chloride (K-Dur -) 40 meq PO BID [facility] Last Admin: 03/27/17 21:21 Dose: 40 meq *Physical Exam Vital Signs Temperature 98.7 F 03/28/17 06:00 Pulse Rate 66 03/28/17 06:00 Respiratory Rate 18 03/28/17 06:00 Blood Pressure 154/73 03/28/17 06:00 O2 Sat by Pulse Oximetry (%) 88 L 03/27/17 09:00 General Appearance: Nourished. No Apparent Distress HEENT: EOMI, NIDHI. No Pharyngeal Erythema, Tonsillar Exudate, Tonsillar Erythema Neck: No Cervical Lymphadenopathy Respiratory/Chest: Lungs Clear, Normal Breath Sounds. No Crackles, Rales, Rhonchi, Wheezing Cardiovascular: Regular Rhythm, Regular Rate. No Murmur, Gallops, Rubs Gastrointestinal/Abdominal: Normal Bowel Sounds, Soft. No Guarding, Rebound, Tenderness Musculoskeletal: No CVA Tenderness Extremity: Normal Capillary Refill Integumentary: Normal Color, Dry, Warm Neurologic: supervisor drapery hanging II-XII NML intact, Fully Oriented, Alert, Normal Mood/Affect, Normal Response, Motor Strength 5/5. CBCD WBC 10.9 K/mm3 (4.0-10.0) H 03/27/17 06:20 RBC 4.34 M/mm3 (3.60-5.2) 03/27/17 06:20 Hgb 14.2 GM/dL (10.7-15.3) D 03/27/17 06:20 Hct 40.9 % (32.4-45.2) 03/27/17 06:20 MCV 94.3 fl (80-96) 03/27/17 06:20 MCHC 34.6 g/dl (32.0-36.0) 03/27/17 06:20 RDW 13.5 % (11.6-15.6) 03/27/17 06:20 Plt Count 291 K/MM3 (134-434) 03/27/17 06:20 MPV 7.9 fl (7.5-11.1) 03/27/17 06:20 CMP Sodium 130 mmol/L (136-145) L 03/27/17 06:20 Potassium 3.0 mmol/L (3.5-5.1) L 03/27/17 06:20 Chloride 90 mmol/L (98-107) L 03/27/17 06:20 Carbon Dioxide 31 mmol/L (21-32) 03/27/17 06:20 Anion Gap 9 (8-16) 03/27/17 06:20 BUN 6 mg/dL (7-18) L 03/27/17 06:20 Creatinine 0.8 mg/dL (0.55-1.02) 03/27/17 06:20 Creat Clearance w eGFR > 60 (>60) 03/27/17 06:20 Calcium 8.4 mg/dL (8.5-10.1) L 03/27/17 06:20 Total Bilirubin 1.0 mg/dL (0.2-1.0) D 03/27/17 06:20 AST 17 U/L (15-37) 03/27/17 06:20 ALT 12 U/L (12-78) 03/27/17 06:20 Alkaline Phosphatase 123 U/L (45-117) H 03/27/17 06:20 Total Protein 5.7 g/dl (6.4-8.2) L 03/27/17 06:20 Albumin 2.9 g/dl (3.4-5.0) L 03/27/17 06:20 CT head reviewed Medical Decision Making 61 year old female with a history of HTN, HLD, Seizures, Pancreatitis with cyclical vomiting syndrome who presented for evaluation following a seizure. The son reported that he found the patient in a post-ictal state morning of admission immediately after an witnessed seizure. Reportedly, the patient had been having multiple episodes of non-bilious, non-bloody vomiting over the past 3-4 days due to her cyclical vomiting syndrome. They state that the patient's last seizure was over 2 years ago and that this is how the patient usually presents with seizures. They state that she goes through bouts of cyclical vomiting and then has a seizure. She reports that she is on keppra and is compliant with her medication but only once per day. I had spoken to the ER earlier and labs were notable for Hyponatremia and Hypokalemia, both of which can precipitate seizures. Recommend increasing Keppra to 750mg twice daily because she had a second seizure on admission. Informed her to take it twice daily Correcting underlying electrolyte abnormalities would be most effecting in preventing subsequent seizures Sodium improved Anti-emetics for cyclic vomiting Increased PO/IV hydration Monitor BP, maintain < 140/90 Continue losartan, coreg, procardia Monitor electrolytes Seizures stabilized, no recurrence Ativan PRN
[2017-03-28] MEDS: POTASSIUM CHLORIDE TABS 20 MEQ TABLET.ER (FP) PO SCH ×2 (10:05→21:57)
[2017-03-28] MEDS: CARVEDILOL 12.5 MG TABLET (FP) PO SCH ×2 (10:05→21:57)
[2017-03-28] MEDS: NIFEdipine E.R 60 MG TABLET (UD) PO SCH (10:05)
[2017-03-28] MEDS: levETIRAcetam 500 MG TABLET (FP) PO SCH ×2 (10:05→21:57)
[2017-03-28] MEDS: LOSARTAN POTASSIUM 50 MG TABLET (FP) PO SCH (10:05)
[2017-03-28] MEDS: HEPARIN NA (PORCINE) 5,000 UNITS/ML 1ML VIAL SQ SCH ×2 (10:06→21:57)
[2017-03-28] MEDS: oxyCODONE HCL 5 MG TABLET PO PRN ×2 (10:10→22:40)
[2017-03-28] MEDS: ACETAMINOPHEN 325 MG TABLET (FP) PO PRN ×3 (10:11→22:39)
[2017-03-28] MEDS: morphine SO4 SUSTAINED ACTING 15 MG TABLET.SA PO SCH (13:01)
--- NOTE | 2017-03-28 21:11 | PN ---
Progress Note, Physician History of Present Illness: No new seizures Pt having pain - Current Medication List Current Medications: Active Medications Acetaminophen (Tylenol -) 325 mg PO Q12H PRN PRN Reason: FEVER OR PAIN Last Admin: 03/28/17 10:11 Dose: 325 mg Acetaminophen (Tylenol -) 650 mg PO Q6H PRN PRN Reason: HEADACHE Last Admin: 03/28/17 18:29 Dose: 650 mg Carvedilol (Coreg -) 12.5 mg PO BID [facility] Last Admin: 03/28/17 10:05 Dose: 12.5 mg Heparin Sodium (Porcine) (Heparin -) 5,000 unit SQ BID [facility] Last Admin: 03/28/17 10:06 Dose: 5,000 unit Levetiracetam (Keppra -) 750 mg PO BID [facility] Last Admin: 03/28/17 10:05 Dose: 750 mg Levothyroxine Sodium (Synthroid -) 25 mcg PO ACBK [facility] Last Admin: 03/28/17 06:41 Dose: 25 mcg Lorazepam (Ativan Injection -) 0.5 mg IVPUSH Q6H PRN PRN Reason: seizure Losartan Potassium (Cozaar -) 100 mg PO DAILY [facility] Last Admin: 03/28/17 10:05 Dose: 100 mg Morphine Sulfate (Ms Contin -) 15 mg PO DAILY [facility] Last Admin: 03/28/17 13:01 Dose: 15 mg Nifedipine (Procardia Xl -) 60 mg PO DAILY [facility] Last Admin: 03/28/17 10:05 Dose: 60 mg Ondansetron HCl (Zofran Injection) 4 mg IVPUSH Q8H PRN PRN Reason: NAUSEA Last Admin: 03/27/17 21:32 Dose: 4 mg Oxycodone HCl (Roxicodone -) 5 mg PO Q12H PRN Last Admin: 03/28/17 10:10 Dose: 5 mg Potassium Chloride (K-Dur -) 40 meq PO BID [facility] Last Admin: 03/28/17 10:05 Dose: 40 meq - Objective Vital Signs: Vital Signs Temperature 97.9 F 03/28/17 14:38 Pulse Rate 59 L 03/28/17 14:38 Respiratory Rate 16 03/28/17 14:38 Blood Pressure 110/57 03/28/17 14:38 O2 Sat by Pulse Oximetry (%) 96 03/28/17 09:00 Constitutional: Yes: No Distress HENT: Yes: WNL Neck: Yes: WNL, Supple Cardiovascular: Yes: WNL, Regular Rate and Rhythm Respiratory: Yes: WNL, Regular, CTA Bilaterally Gastrointestinal: Yes: WNL, Normal Bowel Sounds, Soft Labs: CBC, BMP 03/27/17 06:20 03/27/17 06:20 Problem List - Problems (1) Seizure Assessment/Plan: Keppra dose increased Replace K+ as needed Code(s): R56.9 - UNSPECIFIED CONVULSIONS (2) HTN (hypertension) Assessment/Plan: BP stable Cont procardia/losartan/coreg Code(s): I10 - ESSENTIAL (PRIMARY) HYPERTENSION (3) Cyclic vomiting syndrome Assessment/Plan: Cont zofran Code(s): G43.A0 - CYCLICAL VOMITING, NOT INTRACTABLE (4) Chronic pain Assessment/Plan: Will get pain management consult Cont morphine/percocet Code(s): G89.29 - OTHER CHRONIC PAIN (5) Hypothyroidism Assessment/Plan: Cont levothyroxine Chech TSH Code(s): E03.9 - HYPOTHYROIDISM, UNSPECIFIED
[2017-03-29] MEDS: ONDANSETRON 4 MG/2 ML VIAL IVPUSH PRN (01:19)
[2017-03-29 05:38] VITALS: PULSE 58; TEMP 98
[2017-03-29] MEDS: LEVOTHYROXINE NA 25 MCG TABLET (FP) PO SCH (06:46)
[2017-03-29 07:44] LABS: ALBUMIN 2.7 g/dl (3.4-5.0); ANION GAP 5 (8-16); CALCIUM 8.1 mg/dL (8.5-10.1); CO2 29 mmol/L (21-32); GLUCOSE,RANDOM 82 mg/dL (74-106); SGOT/AST 13 U/L (15-37); SGPT/ALT 11 U/L (12-78)
[2017-03-29 07:54] LABS: ALK PHOS 107 U/L (45-117); BILIRUBIN,TOTAL 0.6 mg/dL (0.2-1.0); TOT PROT 5.4 g/dl (6.4-8.2)
--- NOTE | 2017-03-29 09:37 | PN ---
Progress Note (short form) - Note Progress Note: Neurology History of Present Illness The patient is a 61 year old female with a history of HTN, HLD, Seizures, Pancreatitis with cyclical vomiting syndrome who presented for evaluation following a seizure. The son reported that he found the patient in a post- ictal state morning of admission immediately after an witnessed seizure. Reportedly, the patient had been having multiple episodes of non-bilious, non- bloody vomiting over the past 3-4 days due to her cyclical vomiting syndrome. Reportedly, patient's last seizure was over 2 years ago and that this is how the patient usually presents with seizures. They state that she goes through bouts of cyclical vomiting and then has a seizure. She reports that she is on keppra and is compliant with her medication but was taking it only once per day. CT head reviewed and did not show acute changes. I had spoken to the ER earlier and labs were notable for Hyponatremia and Hypokalemia, both of which can precipitate seizures. However, i had recommend increasing Keppra to 750mg twice daily because she had a second seizure on admission. Correcting underlying electrolyte abnormalities would be most effecting in preventing subsequent seizures. Admitted for further observation and management. No seizures since admission, remains stable. Active Medications Acetaminophen (Tylenol -) 325 mg PO Q12H PRN PRN Reason: FEVER OR PAIN Last Admin: 03/28/17 22:39 Dose: 325 mg Acetaminophen (Tylenol -) 650 mg PO Q6H PRN PRN Reason: HEADACHE Last Admin: 03/28/17 18:29 Dose: 650 mg Carvedilol (Coreg -) 12.5 mg PO BID [facility] Last Admin: 03/28/17 21:57 Dose: 12.5 mg Heparin Sodium (Porcine) (Heparin -) 5,000 unit SQ BID [facility] Last Admin: 03/28/17 21:57 Dose: 5,000 unit Levetiracetam (Keppra -) 750 mg PO BID [facility] Last Admin: 03/28/17 21:57 Dose: 750 mg Levothyroxine Sodium (Synthroid -) 25 mcg PO ACBK [facility] Last Admin: 03/29/17 06:46 Dose: 25 mcg Lorazepam (Ativan Injection -) 0.5 mg IVPUSH Q6H PRN PRN Reason: seizure Losartan Potassium (Cozaar -) 100 mg PO DAILY [facility] Last Admin: 03/28/17 10:05 Dose: 100 mg Morphine Sulfate (Ms Contin -) 15 mg PO DAILY [facility] Last Admin: 03/28/17 13:01 Dose: 15 mg Nifedipine (Procardia Xl -) 60 mg PO DAILY [facility] Last Admin: 03/28/17 10:05 Dose: 60 mg Ondansetron HCl (Zofran Injection) 4 mg IVPUSH Q8H PRN PRN Reason: NAUSEA Last Admin: 03/29/17 01:19 Dose: 4 mg Oxycodone HCl (Roxicodone -) 5 mg PO Q12H PRN Last Admin: 03/28/17 22:40 Dose: 5 mg *Physical Exam Vital Signs Temperature 98 F 03/29/17 05:38 Pulse Rate 58 L 03/29/17 05:38 Respiratory Rate 18 03/29/17 05:38 Blood Pressure 146/66 03/29/17 05:38 O2 Sat by Pulse Oximetry (%) 96 03/28/17 21:00 General Appearance: Nourished. No Apparent Distress HEENT: EOMI, NIDHI. No Pharyngeal Erythema, Tonsillar Exudate, Tonsillar Erythema Neck: No Cervical Lymphadenopathy Respiratory/Chest: Lungs Clear, Normal Breath Sounds. No Crackles, Rales, Rhonchi, Wheezing Cardiovascular: Regular Rhythm, Regular Rate. No Murmur, Gallops, Rubs Gastrointestinal/Abdominal: Normal Bowel Sounds, Soft. No Guarding, Rebound, Tenderness Musculoskeletal: No CVA Tenderness Extremity: Normal Capillary Refill Integumentary: Normal Color, Dry, Warm Neurologic: functional support analyst II-XII NML intact, Fully Oriented, Alert, Normal Mood/Affect, Normal Response, Motor Strength 5/5. CBCD WBC 10.9 K/mm3 (4.0-10.0) H 03/27/17 06:20 RBC 4.34 M/mm3 (3.60-5.2) 03/27/17 06:20 Hgb 14.2 GM/dL (10.7-15.3) D 03/27/17 06:20 Hct 40.9 % (32.4-45.2) 03/27/17 06:20 MCV 94.3 fl (80-96) 03/27/17 06:20 MCHC 34.6 g/dl (32.0-36.0) 03/27/17 06:20 RDW 13.5 % (11.6-15.6) 03/27/17 06:20 Plt Count 291 K/MM3 (134-434) 03/27/17 06:20 MPV 7.9 fl (7.5-11.1) 03/27/17 06:20 CMP Sodium 131 mmol/L (136-145) L 03/29/17 06:30 Potassium 5.5 mmol/L (3.5-5.1) H D 03/29/17 06:30 Chloride 97 mmol/L (98-107) L 03/29/17 06:30 Carbon Dioxide 29 mmol/L (21-32) 03/29/17 06:30 Anion Gap 5 (8-16) L 03/29/17 06:30 BUN 14 mg/dL (7-18) D 03/29/17 06:30 Creatinine 1.0 mg/dL (0.55-1.02) D 03/29/17 06:30 Creat Clearance w eGFR 56.56 (>60) 03/29/17 06:30 Calcium 8.1 mg/dL (8.5-10.1) L 03/29/17 06:30 Total Bilirubin 0.6 mg/dL (0.2-1.0) D 03/29/17 06:30 AST 13 U/L (15-37) L D 03/29/17 06:30 ALT 11 U/L (12-78) L 03/29/17 06:30 Alkaline Phosphatase 107 U/L (45-117) 03/29/17 06:30 Total Protein 5.4 g/dl (6.4-8.2) L 03/29/17 06:30 Albumin 2.7 g/dl (3.4-5.0) L 03/29/17 06:30 CT head reviewed Medical Decision Making 61 year old female with a history of HTN, HLD, Seizures, Pancreatitis with cyclical vomiting syndrome who presented for evaluation following a seizure. The son reported that he found the patient in a post-ictal state morning of admission immediately after an witnessed seizure. Reportedly, the patient had been having multiple episodes of non-bilious, non-bloody vomiting over the past 3-4 days due to her cyclical vomiting syndrome. They state that the patient's last seizure was over 2 years ago and that this is how the patient usually presents with seizures. They state that she goes through bouts of cyclical vomiting and then has a seizure. She reports that she is on keppra and is compliant with her medication but only once per day. I had spoken to the ER earlier and labs were notable for Hyponatremia and Hypokalemia, both of which can precipitate seizures. Recommend increasing Keppra to 750mg twice daily because she had a second seizure on admission. Informed her to take it twice daily Correcting underlying electrolyte abnormalities would be most effecting in preventing subsequent seizures Sodium improved Anti-emetics for cyclic vomiting During vomiting she may be particularly susceptible to sz due to electrolyte imbalance Increased PO/IV hydration Monitor BP, maintain < 140/90 Continue losartan, coreg, procardia Monitor electrolytes Seizures stabilized, no recurrence No further rec'd at this time
[2017-03-29 09:39] VITALS: BP 117/52
[2017-03-29] MEDS: levETIRAcetam 500 MG TABLET (FP) PO SCH (09:54)
[2017-03-29] MEDS: CARVEDILOL 12.5 MG TABLET (FP) PO SCH (09:55)
[2017-03-29] MEDS: LOSARTAN POTASSIUM 50 MG TABLET (FP) PO SCH (09:55)
[2017-03-29] MEDS: morphine SO4 SUSTAINED ACTING 15 MG TABLET.SA PO SCH (09:55)
[2017-03-29] MEDS: HEPARIN NA (PORCINE) 5,000 UNITS/ML 1ML VIAL SQ SCH ×2 (09:55→09:59)
[2017-03-29] MEDS: NIFEdipine E.R 60 MG TABLET (UD) PO SCH (09:55)
== END 2017-03-29 13:18 | disposition home or self-care (01) | DRG 101 ==
LOC: JER 07:21 → JERBED 12:03 → J4S 15:46
PROVIDERS: ADMIT Internal Medicine; ATTEND Internal Medicine
DX: G40.409 Other generalized epilepsy and epileptic syndromes, not intractable, without status epilepticus (principal); E87.1 Hypo-osmolality and hyponatremia; I10 Essential (primary) hypertension; E78.5 Hyperlipidemia, unspecified; I25.2 Old myocardial infarction; Z95.5 Presence of coronary angioplasty implant and graft; J44.9 Chronic obstructive pulmonary disease, unspecified; K21.9 Gastro-esophageal reflux disease without esophagitis; E03.9 Hypothyroidism, unspecified; F17.210 Nicotine dependence, cigarettes, uncomplicated; G43.A0 Cyclical vomiting, in migraine, not intractable; E87.6 Hypokalemia; I25.10 Atherosclerotic heart disease of native coronary artery without angina pectoris; G89.29 Other chronic pain; M54.5 Low back pain; F12.10 Cannabis abuse, uncomplicated
CPT/HCPCS: 36415; 70450-TC; 71010-TC; 80053; 81003; 82550; 83690; 84443; 84484; 85025; 87086; 90688; 93005; 93010; 97116-GP; 97161-GP; 99285-25; J1644

== ENCOUNTER 2018-05-13 08:23 | Inpatient (IN) | payer OTHER ==
[2018-05-13] MEDS ORDERED: SODIUM CHLORIDE 1,000 ML IV STA (08:56)
[2018-05-13] MEDS ORDERED: FAMOTIDINE 20 MG/50 ML IVPB 20 MG/50 ML MG IVPB ONE ×2 (08:56→09:22)
[2018-05-13] MEDS ORDERED: ONDANSETRON 4 MG/2 ML VIAL IVPUSH ONE (08:56)
[2018-05-13] MEDS ORDERED: ONDANSETRON 4 MG/2 ML VIAL ONE (09:22)
--- NOTE | 2018-05-13 09:27 | PDOC ---
History of Present Illness - General Chief Complaint: Nausea/Vomiting Stated Complaint: VOMITING Time Seen by Provider: 05/13/18 08:37 History Source: Patient Exam Limitations: No Limitations - History of Present Illness Initial Comments: 05/13/18 09:25 Patient is a 62 year old female with a PMHx of HTN, HLD, Seizure disorder, hypothyroidism, cyclic vomiting, chronic pancreatitis, sciatica who presents here today for nausea and vomiting in the last 24 hours. Patient reports having several episodes of nonbloody, nonbilious vomiting. Denies any change in diet or abdominal pain and diarrhea. Patient reports having a history of vomiting and states marijuana makes her nausea better. Patient otherwise denies any shortness of breath, fevers, chills, chest pain, palpitations, abdominal pain, headaches, diarrhea, constipation, loss of consciousness, hemoptysis, melena, hematochezia, hematemesis, cough, rhinorrhea , throat pain or swelling. PMHx: HTN HLD Hypothyroidism Cyclic vomiting Chronic pancreatitis Sciatica Hyponatremia PSHx: Denies any surgeries Social Hx: Denies alcohol use Denies smoking Reports marijuana use every other day Allergies: NKDA 05/13/18 14:43 Past History - Past Medical History Allergies/Adverse Reactions: Allergies Allergy/AdvReac Type Severity Reaction Status Date / Time No Known Drug Allergies Allergy Verified 05/13/18 08:32 Home Medications: Ambulatory Orders Carvedilol [Coreg -] 12.5 mg PO BID 03/26/17 Ibuprofen 600 mg PO DAILY 03/26/17 Levothyroxine [Synthroid -] 25 mcg PO DAILY 03/26/17 Metoclopramide HCl 5 mg PO DAILY 03/26/17 Morphine Sulfate 15 mg PO BID PRN 03/26/17 Nifedipine ER [Procardia XL -] 60 mg PO DAILY 03/26/17 Oxycodone HCl/Acetaminophen [Percocet 5-325 mg Tablet] 1 tab PO BID PRN levETIRAcetam [Keppra -] 750 mg PO BID #60 tablet 03/29/17 Amitriptyline HCl [Elavil -] 10 mg PO HS 05/13/18 Arformoterol Tartrate [Brovana] 15 mcg IH BID 05/13/18 Atorvastatin Ca [Lipitor] 20 mg PO HS 05/13/18 Losartan Potassium 50 mg PO DAILY 05/13/18 Anemia: No Asthma: No Cancer: No Cardiac Disorders: Yes CVA: No COPD: No CHF: No DVT: No Dementia: No Diabetes: No GI Disorders: Yes (GERD) Disorders: No HTN: Yes Hypercholesterolemia: Yes Liver Disease: No Seizures: Yes Thyroid Disease: Yes (HYPOTHYROIDISM) - Surgical History Abdominal Surgery: No Appendectomy: No Cardiac Surgery: Yes (stents x 5) Cholecystectomy: No Lung Surgery: No Neurologic Surgery: No Orthopedic Surgery: Yes (spinal) - Immunization History Td Vaccination: Yes Immunization Up to Date: Yes - Suicide/Smoking/Psychosocial Hx Smoking Status: Yes Smoking History: Current every day smoker Have you smoked in the past 12 months: Yes Number of Cigarettes Smoked Daily: 10 Information on smoking cessation initiated: No 'Breaking Loose' booklet given: 03/13/12 Hx Alcohol Use: No Drug/Substance Use Hx: No Substance Use Type: None Hx Substance Use Treatment: No Abd/GI Specific PMHX - Complaint Specific PMHX GERD: Yes GI Ulcer Disease: No Review of Systems - Review of Systems Constitutional: No: Chills, Diaphoresis, Fever, Weakness HEENTM: No: Blurred Vision, Nose Congestion, Throat Pain, Difficulty Swallowing Respiratory: No: Cough, Orthopnea, Shortness of Breath, SOB with Exertion, SOB at Rest, Wheezing, Productive cough, Hemoptysis Cardiac (ROS): No: Chest Pain, Edema, Lightheadedness, Palpitations, Syncope, Chest Tightness ABD/GI: Yes: Nausea, Vomiting. No: Abdominal Distended, Constipated, Diarrhea, Rectal Bleeding, Indigestion, Abdominal cramping : No: Burning, Dysuria, Discharge, Frequency, Flank Pain, Hematuria Musculoskeletal: No: Back Pain, Muscle Pain Integumentary: No: Bruising, Erythema, Rash Neurological: No: Headache, Numbness, Seizure, Tremors, Dizziness *Physical Exam - Vital Signs Last Vital Signs Temp Pulse Resp BP Pulse Ox 97.7 F 53 L 18 188/68 H 95 05/13/18 08:32 05/13/18 08:32 05/13/18 08:32 05/13/18 08:32 05/13/18 08:32 - Physical Exam General Appearance: Yes: Other (Awake, alert, oriented x3, no acute distress ) HEENT: positive: NIDHI, Normal ENT Inspection, Symmetrical, Pharynx Normal. negative: Tonsillar Exudate, Tonsillar Erythema, Rhinorrhea, Sinus Tenderness Neck: positive: Supple. negative: Decreased range of motion, Lymphadenopathy (R ), Lymphadenopathy (L) Respiratory/Chest: positive: Lungs Clear, Normal Breath Sounds. negative: Chest Tender, Respiratory Distress, Accessory Muscle Use, Crackles, Rales, Rhonchi, Wheezing Cardiovascular: positive: Regular Rhythm, Regular Rate, S1, S2. negative: Edema , JVD Gastrointestinal/Abdominal: positive: Other (Soft, nontender, nondistended, normoactive bowel sounds, no organomegaly, no guarding or rebound tenderness ) Musculoskeletal: positive: Normal Inspection. negative: CVA Tenderness, CVA Tenderness (R), CVA Tenderness (L), Decreased Range of Motion Extremity: positive: Normal Capillary Refill, Normal Inspection, Normal Range of Motion. negative: Swelling, Calf Tenderness, Erythema Integumentary: positive: Normal Color, Dry, Warm. negative: Erythema, Jaundice , Diaphoresis, Hives Neurologic: positive: differential specialist II-XII NML intact, Fully Oriented, Alert, Normal Mood/ Affect, Normal Response, Motor Strength 5/5 Moderate Sedation - Procedure Monitoring Vital Signs: Procedure Monitoring Vital Signs Temperature 97.7 F 05/13/18 08:32 Pulse Rate 53 L 05/13/18 08:32 Respiratory Rate 18 05/13/18 08:32 Blood Pressure 188/68 H 05/13/18 08:32 O2 Sat by Pulse Oximetry (%) 95 05/13/18 08:32 ED Treatment Course - LABORATORY CBC & Chemistry Diagram: 05/14/18 07:15 05/14/18 07:15 Medical Decision Making - Medical Decision Making 05/13/18 09:56 Patient is a 62 year old female with a PMHx of chronic pancreatitis and cyclic vomiting who presents here today for several episodes of vomiting in the last 24 hours with no diarrhea or abdominal pain. DDx includes but not limited to acute pancreatitis, gastroenteritis, cyclic vomiting, metabolic derangements. -CBC, CMP, LIPASE, cardiac profile -IV NS, IV Zofran, IV Famotidine -U/A 05/13/18 11:42 -Patients BMP revealed hyponatremia but does have a chronic history of hyponatremia. Patient likely experiencing nausea/vomiting from acute/chronic hyponatremia -Potassium 3.1 -Order for IV NS with KCl and PO KCl 05/13/18 11:46 -U/A pending 05/13/18 12:07 -Patient complains of chronic back pain and is on pain medications at home. Patient requesting her home medications but will give Morphine 15mg PO. 05/13/18 13:28 -Urine and serum osm, urine electrolytes ordered -Uric acid and TSH ordered -Will make a call out to Dr. Sy for admission 05/13/18 14:37 -Dr. Sy accepted patient for inpatient admission to Med/Surg and would like Nephrology consult for Dr. Youssef. *DC/Admit/Observation/Transfer Diagnosis at time of Disposition: Hyponatremia - Discharge Dispostion Decision to Admit order: Yes - Referrals - Patient Instructions - Post Discharge Activity
[2018-05-13 11:23] LABS: ANION GAP 9 MMOL/L (8-16); BLOOD UREA NITROGEN 8 mg/dL (7-18); CHLORIDE 81 mmol/L (98-107); CO2 30 mmol/L (21-32); CREATININE 0.9 mg/dL (0.55-1.3); GLUCOSE,RANDOM 96 mg/dL (74-106); LIPASE 79 U/L (73-393); POTASSIUM 3.1 mmol/L (3.5-5.1); SODIUM 120 mmol/L (136-145)
[2018-05-13 11:24] LABS: ALBUMIN 3.7 g/dl (3.4-5.0); ALK PHOS 104 U/L (45-117); BILIRUBIN,TOTAL 0.5 mg/dL (0.2-1); SGOT/AST 32 U/L (15-37); SGPT/ALT 21 U/L (13-61); TOT PROT 6.2 g/dl (6.4-8.2)
[2018-05-13] MEDS ORDERED: POTASSIUM CHLORIDE TABS 20 MEQ TABLET.ER (FP) PO ONE ×2 (11:33→11:35)
[2018-05-13] MEDS ORDERED: POTASSIUM CHLORIDE 10 MEQ in SODIUM CHLORIDE 1,000 ML IVPB ONE (11:35)
[2018-05-13] MEDS: SODIUM CHLORIDE 1,000 ML with POTASSIUM CHLORIDE 10 MEQ IVPB STA ×2 (11:51→11:52)
--- NOTE | 2018-05-13 11:54 | PDOC ---
Attending Attestation - Resident Resident Name: JosiahraymundoMarissa - ED Attending Attestation I have performed the following: I have examined & evaluated the patient, The case was reviewed & discussed with the resident, I agree w/resident's findings & plan, Exceptions are as noted - HPI HPI: 05/13/18 11:40 62 F with h/o HTN, HLD, Seizure disorder, hypothyroidism, cyclic vomiting, chronic pancreatitis, sciatica who presents here today for nausea and vomiting. Pt reports multiple episodes of vomiting, though she now states she is only dry heaving. Endorses cramping pain with vomiting but denies any pain otherwise. Pt denies diarrhea. Denies CP/SOB. Denies dysuria/flank pain. Pt states this feels like her usual cyclical vomiting episodes. - Physicial Exam PE: 05/13/18 11:54 "GENERAL: Awake, alert, and fully oriented, in no acute distress. HEAD: No signs of trauma EYES: PERRLA, EOMI, sclera anicteric, conjunctiva clear ENT: Auricles normal inspection, hearing grossly normal, nares patent, oropharynx clear without exudates. Moist mucosa NECK: Nontender, no stepoffs, Normal ROM, supple, no lymphadenopathy, JVD, or masses LUNGS: Breath sounds equal, clear to auscultation bilaterally. No wheezes, and no crackles HEART: Regular rate and rhythm, normal S1 and S2, no murmurs, rubs or gallops ABDOMEN: Soft, nontender, normoactive bowel sounds. No guarding, no rebound. No masses EXTREMITIES: Normal range of motion, no edema. No clubbing or cyanosis. No cords, erythema, or tenderness NEUROLOGICAL: Cranial nerves II through XII intact. 5/5 strength and sensation in all extremities, Normal speech, normal gait, normal cerebellar function SKIN: Warm, Dry, normal turgor, no rashes or lesions noted." - Medical Decision Making 05/13/18 11:54 62 F with N+V, likely cyclical vomiting vs cannabanoid hyperemesis as pt is almost-daily marijuana user. - Labs, lipase - IVF, GI cocktail 05/13/18 12:10 Labs notable for Na 120 Will continue IVF, send urine lytes
[2018-05-13] MEDS ORDERED: morphine SO4 SUSTAINED ACTING 15 MG TABLET.SA PO ONE (12:08)
[2018-05-13] MEDS ORDERED: morphine SO4 SUSTAINED ACTING 15 MG TABLET.SA ONE (12:48)
[2018-05-13 13:09] LABS: URINE APPEARANCE CLEAR; URINE BILIRUBIN NEGATIVE (<2.0 mg/dL); URINE COLOR LTYELLOW; URINE GLUCOSE (UA) NEGATIVE (NEGATIVE); URINE KETONE NEGATIVE (NEGATIVE); URINE LEUK ESTERASE NEGATIVE (NEGATIVE); URINE NITRITE NEGATIVE (NEGATIVE); URINE PROTEIN NEGATIVE (NEGATIVE); URINE UROBILINOGEN NEGATIVE mg/dL (0.2-1.0)
[2018-05-13 14:13] LABS: EPI CELLS RARE /HPF (FEW)
[2018-05-13 15:10] LABS: BASO % 0.6 % (0-2.0); EOS % 0.2 % (0-4.5); HEMATOCRIT 38.6 % (32.4-45.2); HEMOGLOBIN 14.1 GM/dL (10.7-15.3); LYMPH % 19.8 % (8-40); MCH 35.4 pg (25.7-33.7); MCHC 36.6 g/dl (32.0-36.0); MEAN CELL VOLUME 96.7 fl (80-96); MEAN PLT VOLUME 8.4 fl (7.5-11.1); MONO % 6.7 % (3.8-10.2); NEUT % 72.7 % (42.8-82.8); PLATELET COUNT 274 K/MM3 (134-434); RBC 3.99 M/mm3 (3.60-5.2); RDW 13.4 % (11.6-15.6); WHITE BLOOD COUNT 9.6 K/mm3 (4.0-10.0)
--- NOTE | 2018-05-13 16:28 | EKG ---
Test Reason : Blood Pressure : / mmHG Vent. Rate : 051 BPM Atrial Rate : 051 BPM P-R Int : 216 ms QRS Dur : 084 ms QT Int : 454 ms P-R-T Axes : 081 076 064 degrees QTc Int : 418 ms SINUS BRADYCARDIA WITH 1ST DEGREE A-V BLOCK LEFT VENTRICULAR HYPERTROPHY NONSPECIFIC ST ABNORMALITY ABNORMAL ECG Confirmed by MD JANESSA, GAYLE ([id number]) on 05/13/2018 4:28:24 PM Referred By: Confirmed By:GAYLE RIDDLE MD
[2018-05-13 16:42] VITALS: BMI 16.5
[2018-05-13] MEDS ORDERED: ONDANSETRON 4 MG/2 ML VIAL IVPUSH PRN (17:13)
[2018-05-13] MEDS ORDERED: METOCLOPRAMIDE HCL 10 MG TABLET (FP) PO SCH ×2 (17:15→17:43)
[2018-05-13 17:34] LABS: ANION GAP 7 MMOL/L (8-16); BLOOD UREA NITROGEN 7 mg/dL (7-18); CHLORIDE 90 mmol/L (98-107); CO2 28 mmol/L (21-32); CREATININE 0.8 mg/dL (0.55-1.3); GLUCOSE,RANDOM 89 mg/dL (74-106); POTASSIUM 3.8 mmol/L (3.5-5.1); SODIUM 125 mmol/L (136-145)
[2018-05-13] MEDS ORDERED: FLU VACCINE QUAD 60 MCG/0.5 ML (MDV 18-19) IM ONE (17:40)
[2018-05-13] MEDS: AMITRIPTYLINE HCL 10 MG TABLET (FP) PO SCH (21:39)
[2018-05-13] MEDS: ATORVASTATIN CA 20 MG TABLET (FP) PO SCH (21:39)
[2018-05-13] MEDS: CARVEDILOL 12.5 MG TABLET (FP) PO SCH (21:39)
[2018-05-13] MEDS: levETIRAcetam 500 MG TABLET (FP) PO SCH (21:39)
[2018-05-13] MEDS ORDERED: ARFORMOTEROL TARTRATE 15 MCG/2 ML VIAL NEB SCH (22:00)
--- NOTE | 2018-05-13 22:01 | CON.NEP ---
Consult Consult Specialty:: nephrology Referred by:: dr woodruff Reason for Consultation:: severe hyponatremia - History of Present Illness Chief Complaint: vomiting History of Present Illness: Patient is a 62 year old f presents here today for multiple episodes of nausea and vomiting in the last 24 hours. no bloody, no bile in vomitus Labwork in ER show serum sodium 120 PMH HTN HLD Hypothyroidism Cyclic vomiting Chronic pancreatitis Sciatica Hyponatremia - Past Medical History PROPOSAL EDITOR: Yes: Seizure Cardio/Vascular: Yes: CAD, HTN, [place], Hyperlipdemia, Other Pulmonary: Yes: COPD Gastrointestinal: Yes: Constipation Musculoskeletal: Yes: Chronic low back pain - Past Surgical History Past Surgical History: Yes: Carotid Endarterectomy - Alcohol/Substance Use Hx Alcohol Use: No Number of Drinks Daily: 10 History of Substance Use: reports: Marijuana (Daily), Prescription (morphine 75 mg per day) - Smoking History Smoking history: Never smoked Have you smoked in the past 12 months: No Aproximately how many cigarettes per day: 10 - Social History ADL: Independent Home Medications - Allergies Allergies/Adverse Reactions: Allergies Allergy/AdvReac Type Severity Reaction Status Date / Time No Known Drug Allergies Allergy Verified 05/13/18 08:32 - Home Medications Home Medications: Ambulatory Orders Carvedilol [Coreg -] 12.5 mg PO BID 03/26/17 Ibuprofen 600 mg PO DAILY 03/26/17 Levothyroxine [Synthroid -] 25 mcg PO DAILY 03/26/17 Metoclopramide HCl 5 mg PO DAILY 03/26/17 Morphine Sulfate 15 mg PO DAILY 03/26/17 Nifedipine ER [Procardia XL -] 60 mg PO DAILY 03/26/17 Oxycodone HCl/Acetaminophen [Percocet 5-325 mg Tablet] 1 tab PO BID PRN levETIRAcetam [Keppra -] 750 mg PO BID #60 tablet 03/29/17 Amitriptyline HCl [Elavil -] 10 mg PO HS 05/13/18 Arformoterol Tartrate [Brovana] 15 mcg IH BID 05/13/18 Atorvastatin Ca [Lipitor] 20 mg PO HS 05/13/18 Losartan Potassium 50 mg PO DAILY 05/13/18 Nephrology Consult - Height Height: 5 ft 1 in - Weight Weight: 87 lb 11.2 oz - BMI Body Mass Index (BMI): 16.5 - Lab Results CBC,BMP: CBC, BMP 05/13/18 09:47 05/13/18 15:20 Anion Gap: Anion Gap Anion Gap 7 MMOL/L (8-16) L 05/13/18 15:20 - Physical Examination Vital Signs: Vital Signs Temperature 98.0 F 05/13/18 19:07 Pulse Rate 66 05/13/18 19:07 Respiratory Rate 18 05/13/18 19:07 Blood Pressure 162/66 05/13/18 19:07 O2 Sat by Pulse Oximetry (%) 91 L 05/13/18 16:18 Assessment/Plan Hyponatremia hypovelemia/vomiting copd r/o siadh very dilute urine trace blood in very dilute urine- needs f/u agree with empirical saline follow bp for sodium trend in 6 hours and then in am follow up urine for blood r/o proteinuria
[2018-05-13] MEDS: ACETAMINOPHEN 325 MG TABLET (FP) PO PRN (23:02)
[2018-05-13] MEDS: oxyCODONE HCL 5 MG TABLET PO PRN (23:04)
--- NOTE | 2018-05-14 02:06 | HP ---
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 Cardiovascular: Yes: CAD, HTN, [place], Hyperlipdemia, Other Pulmonary: Yes: COPD Gastrointestinal: Yes: Constipation Musculoskeletal: Yes: Chronic low back pain - Past Surgical History Past Surgical History: Yes: Carotid Endarterectomy - Smoking History Smoking history: Never smoked Have you smoked in the past 12 months: No Aproximately how many cigarettes per day: 10 - Alcohol/Substance Use Hx Alcohol Use: No Number of Drinks Daily: 10 History of Substance Use: reports: Marijuana (Daily), Prescription (morphine 75 mg per day) - Social History ADL: Independent Home Medications - Allergies Allergies/Adverse Reactions: Allergies Allergy/AdvReac Type Severity Reaction Status Date / Time No Known Drug Allergies Allergy Verified 05/13/18 08:32 - Home Medications Home Medications: Ambulatory Orders Carvedilol [Coreg -] 12.5 mg PO BID 03/26/17 Ibuprofen 600 mg PO DAILY 03/26/17 Levothyroxine [Synthroid -] 25 mcg PO DAILY 03/26/17 Metoclopramide HCl 5 mg PO DAILY 03/26/17 Morphine Sulfate 15 mg PO DAILY 03/26/17 Nifedipine ER [Procardia XL -] 60 mg PO DAILY 03/26/17 Oxycodone HCl/Acetaminophen [Percocet 5-325 mg Tablet] 1 tab PO BID PRN levETIRAcetam [Keppra -] 750 mg PO BID #60 tablet 03/29/17 Amitriptyline HCl [Elavil -] 10 mg PO HS 05/13/18 Arformoterol Tartrate [Brovana] 15 mcg IH BID 05/13/18 Atorvastatin Ca [Lipitor] 20 mg PO HS 05/13/18 Losartan Potassium 50 mg PO DAILY 05/13/18 Physical Examination Vital Signs: Vital Signs Temperature 98.5 F 05/13/18 23:00 Pulse Rate 56 L 05/13/18 23:00 Respiratory Rate 18 05/13/18 23:00 Blood Pressure 145/67 05/13/18 23:00 O2 Sat by Pulse Oximetry (%) 91 L 05/13/18 16:18 Labs: CBC, BMP 05/13/18 09:47 05/13/18 15:20
[2018-05-14 08:10] LABS: ALBUMIN 3.1 g/dl (3.4-5.0); ALK PHOS 92 U/L (45-117); ANION GAP 9 MMOL/L (8-16); BILIRUBIN,TOTAL 0.7 mg/dL (0.2-1); BLOOD UREA NITROGEN 13 mg/dL (7-18); CALCIUM 8.5 mg/dL (8.5-10.1); CHLORIDE 94 mmol/L (98-107); CO2 25 mmol/L (21-32); CREATININE 0.8 mg/dL (0.55-1.3); GLUCOSE,RANDOM 65 mg/dL (74-106); POTASSIUM 3.5 mmol/L (3.5-5.1); SGOT/AST 27 U/L (15-37); SGPT/ALT 20 U/L (13-61); SODIUM 129 mmol/L (136-145); TOT PROT 5.5 g/dl (6.4-8.2)
[2018-05-14] MEDS: CARVEDILOL 12.5 MG TABLET (FP) PO SCH ×2 (09:46→21:47)
[2018-05-14] MEDS: IBUPROFEN 600 MG TABLET (FP) PO SCH ×2 (09:46→09:53)
[2018-05-14] MEDS: levETIRAcetam 500 MG TABLET (FP) PO SCH ×2 (09:47→21:46)
[2018-05-14] MEDS ORDERED: ENOXAPARIN NA (PORCINE) 40 MG/0.4 ML DISP.SYRIN SQ SCH (10:00)
[2018-05-14] MEDS ORDERED: LOSARTAN POTASSIUM 50 MG TABLET (FP) PO SCH (10:00)
[2018-05-14] MEDS ORDERED: NIFEdipine E.R 60 MG TABLET (UD) PO SCH (10:00)
[2018-05-14] MEDS ORDERED: PANTOPRAZOLE 40 MG TABLET (FP) PO SCH (10:00)
[2018-05-14] MEDS ORDERED: morphine SO4 SUSTAINED ACTING 15 MG TABLET.SA PO SCH (10:00)
[2018-05-14] MEDS ORDERED: LEVOTHYROXINE NA 25 MCG TABLET (FP) PO SCH (10:00)
[2018-05-14 10:10] LABS: BASO % 0.4 % (0-2.0); HEMOGLOBIN 13.7 GM/dL (10.7-15.3); LYMPH % 14.6 % (8-40); MCH 35.5 pg (25.7-33.7); MCHC 36.2 g/dl (32.0-36.0); MEAN CELL VOLUME 98.1 fl (80-96); MEAN PLT VOLUME 7.7 fl (7.5-11.1); MONO % 4.5 % (3.8-10.2); NEUT % 80.5 % (42.8-82.8); PLATELET COUNT 261 K/MM3 (134-434); RBC 3.87 M/mm3 (3.60-5.2); RDW 13.4 % (11.6-15.6); WHITE BLOOD COUNT 10.7 K/mm3 (4.0-10.0)
[2018-05-14] MEDS: oxyCODONE HCL 5 MG TABLET PO PRN (12:40)
[2018-05-14] MEDS: ACETAMINOPHEN 325 MG TABLET (FP) PO PRN (12:41)
--- NOTE | 2018-05-14 13:09 | CON.GI ---
Consult Consult Specialty:: medicine Reason for Consultation:: vomiting - History of Present Illness Chief Complaint: N/V History of Present Illness: 62F with h/o HTN, HL, seizure d/o, hypotyhtroid, chronic pancreatitis, cyclical vomiting, almost daily MJ use, presenting for evaluation of two days of N/V. Patient is a poor historian. Relates that for the last days has felt nauseated and vomited 2-3 times a day, with every meal. Vomited food contents, no blood. NO abdominal pain. NO melena, hematochezia. Found to be significantly hyponatremic on labs, which has improved somewhat. Patient has not eaten, is not hungry, but asking for tea. 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 Cardio/Vascular: Yes: CAD, HTN, NH, Hyperlipdemia, Other Pulmonary: Yes: COPD Gastrointestinal: Yes: Constipation Musculoskeletal: Yes: Chronic low back pain - Past Surgical History Past Surgical History: Yes: Carotid Endarterectomy - Alcohol/Substance Use Hx Alcohol Use: No Number of Drinks Daily: 10 History of Substance Use: reports: Marijuana (Daily), Prescription (morphine 75 mg per day) - Smoking History Smoking history: Never smoked Have you smoked in the past 12 months: No Aproximately how many cigarettes per day: 10 - Social History ADL: Independent Home Medications - Allergies Allergies/Adverse Reactions: Allergies Allergy/AdvReac Type Severity Reaction Status Date / Time No Known Drug Allergies Allergy Verified 05/13/18 08:32 - Home Medications Home Medications: Ambulatory Orders Carvedilol [Coreg -] 12.5 mg PO BID 03/26/17 Ibuprofen 600 mg PO DAILY 03/26/17 Levothyroxine [Synthroid -] 25 mcg PO DAILY 03/26/17 Metoclopramide HCl 5 mg PO DAILY 03/26/17 Morphine Sulfate 15 mg PO BID PRN 03/26/17 Nifedipine ER [Procardia XL -] 60 mg PO DAILY 03/26/17 Oxycodone HCl/Acetaminophen [Percocet 5-325 mg Tablet] 1 tab PO BID PRN levETIRAcetam [Keppra -] 750 mg PO BID #60 tablet 03/29/17 Amitriptyline HCl [Elavil -] 10 mg PO HS 05/13/18 Arformoterol Tartrate [Brovana] 15 mcg IH BID 05/13/18 Atorvastatin Ca [Lipitor] 20 mg PO HS 05/13/18 Losartan Potassium 50 mg PO DAILY 05/13/18 Review of Systems - Review of Systems Constitutional: reports: No Symptoms Eyes: reports: No Symptoms HENT: reports: No Symptoms Neck: reports: No Symptoms Cardiovascular: reports: No Symptoms Respiratory: reports: No Symptoms Gastrointestinal: reports: Nausea, Vomiting. denies: Abdominal Pain Musculoskeletal: reports: No Symptoms Neurological: reports: No Symptoms Physical Exam-GI Vital Signs: Vital Signs Temperature 97.9 F 05/14/18 10:00 Pulse Rate 50 L 05/14/18 10:00 Respiratory Rate 18 05/14/18 10:00 Blood Pressure 195/74 H 05/14/18 10:00 O2 Sat by Pulse Oximetry (%) 95 05/13/18 21:00 Constitutional: Yes: Well Nourished Eyes: Yes: WNL HENT: Yes: WNL Cardiovascular: Yes: Regular Rate and Rhythm Respiratory: Yes: CTA Bilaterally ...Auscultate: Yes: Normoactive Bowel Sounds ...Palpate: Yes: Soft. No: Tenderness ...Rectal Exam: Yes: Deferred Extremities: Yes: WNL Edema: No Psychiatric: Yes: Other (very tangential) Labs: CBC, BMP 05/14/18 07:15 05/14/18 07:15 Assessment/Plan N/V may be related to hyponatremia vs chronic pancreatitis (lipase nl) vs cyclical vomiting as she endorsed similarity in flares to other physician. Woult attempt to advance diet Anti-emetics If no response to conservative measures and treatment of hyponatremia, would consider EGD for further evaluation
--- NOTE | 2018-05-14 13:44 | PN ---
Physical Exam: SUBJECTIVE: Patient seen and examined at bedside. Pt states she still has mild nausea. No other complaints. Feels generally well. Pt admits to 15 lb weight loss over the last year. OBJECTIVE: Vital Signs Period Temp Pulse Resp BP Sys/Ruiz Pulse Ox Last 24 Hr 97.5 F-98.7 F 50-73 16-18 130-195/65-85 91-98 Gen: NAD, sitting in bed, AAOx3 HEENT: NCAT, EOMI Neck: supple, no jvd Cardio: rrr, norm s1s2, no mrg Pulm: poor air entry, no rales appreciated Abd: soft, nontender, nondistended Ext: no edema Laboratory Results - last 24 hr 05/13/18 05/13/18 05/13/18 09:47 11:15 15:20 WBC 9.6 RBC 3.99 Hgb 14.1 Hct 38.6 MCV 96.7 H MCH 35.4 H MCHC 36.6 H RDW 13.4 Plt Count 274 MPV 8.4 Absolute Neuts (auto) 7.0 Neutrophils % 72.7 Lymphocytes % 19.8 Monocytes % 6.7 Eosinophils % 0.2 D Basophils % 0.6 Nucleated RBC % 0 Sodium Potassium Chloride Carbon Dioxide Anion Gap BUN Creatinine Creat Clearance w eGFR Random Glucose Serum Osmolality 263 L Uric Acid Calcium Total Bilirubin AST ALT Alkaline Phosphatase Total Protein Albumin TSH Urine Color Ltyellow Urine Appearance Clear Urine pH 6.0 Ur Specific [place] 1.008 L Urine Protein Negative Urine Glucose (UA) Negative Urine Ketones Negative Urine Blood 1+ H Urine Nitrite Negative Urine Bilirubin Negative Urine Urobilinogen Negative Ur Leukocyte Esterase Negative Urine WBC (Auto) 1 Urine RBC (Auto) None Ur Epithelial Cells Rare 05/13/18 05/14/18 05/14/18 15:20 07:15 07:15 WBC 10.7 H RBC 3.87 Hgb 13.7 Hct 38.0 MCV 98.1 H MCH 35.5 H MCHC 36.2 H RDW 13.4 Plt Count 261 MPV 7.7 Absolute Neuts (auto) 8.6 H Neutrophils % 80.5 Lymphocytes % 14.6 D Monocytes % 4.5 Eosinophils % 0.0 D Basophils % 0.4 Nucleated RBC % 0 Sodium 125 L 129 L Potassium 3.8 3.5 Chloride 90 L 94 L Carbon Dioxide 28 25 Anion Gap 7 L 9 BUN 7 13 Creatinine 0.8 0.8 Creat Clearance w eGFR > 60 > 60 Random Glucose 89 65 L Serum Osmolality Uric Acid 2.0 L Calcium 8.0 L 8.5 Total Bilirubin 0.7 AST 27 ALT 20 Alkaline Phosphatase 92 Total Protein 5.5 L Albumin 3.1 L TSH 5.16 H 5.92 H Urine Color Urine Appearance Urine pH Ur Specific [place] Urine Protein Urine Glucose (UA) Urine Ketones Urine Blood Urine Nitrite Urine Bilirubin Urine Urobilinogen Ur Leukocyte Esterase Urine WBC (Auto) Urine RBC (Auto) Ur Epithelial Cells Active Medications Generic Name Dose Route Start Last Admin Trade Name Freq PRN Reason Stop Dose Admin Acetaminophen 325 mg 05/13/18 21:59 05/14/18 12:41 Tylenol - PO 325 mg Q12H PRN Administration PAIN LEVEL 6-10 Amitriptyline HCl 10 mg 05/13/18 22:00 05/13/18 21:39 Elavil - PO 10 mg HS OSCAR Administration Arformoterol Tartrate 1 amp 05/13/18 22:00 Albinoa (Restricted To Pulmonology/Resp) - NEB BID OSCAR Atorvastatin Calcium 20 mg 05/13/18 22:00 05/13/18 21:39 Lipitor - PO 20 mg HS OSCAR Administration Carvedilol 12.5 mg 05/13/18 22:00 05/14/18 09:46 Coreg - PO 12.5 mg BID OSCAR Administration Enoxaparin Sodium 40 mg 05/14/18 10:00 05/14/18 09:48 Lovenox - SQ 40 mg DAILY OSCAR Administration Ibuprofen 600 mg 05/14/18 10:00 05/14/18 09:53 Motrin - PO Not Given DAILY OSCAR Levetiracetam 750 mg 05/13/18 22:00 05/14/18 09:47 Keppra - PO 750 mg BID OSCAR Administration Levothyroxine Sodium 25 mcg 05/14/18 10:00 05/14/18 09:47 Synthroid - PO 25 mcg DAILY OSCAR Administration Losartan Potassium 50 mg 05/14/18 10:00 05/14/18 09:47 Cozaar - PO 50 mg DAILY OSCAR Administration Metoclopramide HCl 5 mg 05/13/18 17:43 05/14/18 09:47 Reglan - PO 5 mg DAILY OSCAR Administration Morphine Sulfate 15 mg 05/14/18 10:00 05/14/18 09:48 Ms Contin - PO 15 mg DAILY OSCAR Administration Nifedipine 60 mg 05/14/18 10:00 05/14/18 09:46 Procardia Xl - PO 60 mg DAILY OSCAR Administration Ondansetron HCl 4 mg 05/13/18 17:13 05/14/18 06:18 Zofran Injection IVPUSH 4 mg Q8H PRN Administration NAUSEA Oxycodone HCl 5 mg 05/13/18 21:59 05/14/18 12:40 Roxicodone - PO 5 mg Q12H PRN Administration PAIN LEVEL 6-10 Pantoprazole Sodium 40 mg 05/14/18 10:00 05/14/18 09:46 Protonix - PO 40 mg DAILY OSCAR Administration ASSESSMENT/PLAN: Pt is a 62 y/o F with a PMH HTN, HLD, Seizures, hypothyroid, pancreatitis, sciatica, and cyclical vomiting syndrome who presented to the ED with complaint of nausea. #chronic hyponatremia -initially 120, now 129 with boluses of NS -consider SIADH -U lytes and U osm pending -sp gravity on UA suggestive of dilute urine #Hypokalemia - Repleted -initially 3.1, now 3.5 #nausea -possibly due to cyclical vomiting syndrome as pt smokes marijuana daily -possible contribution of hyponatremia -pt currently feeling better #HTN -elevated BP of 195/74 prior to administration of home meds -will recheck #hematuria -1+ blood on UA -pt states she has no kidney issues -renal US to be done today. will f/u result Visit type - Emergency Visit Emergency Visit: No - New Patient This patient is new to me today: Yes Date on this admission: 05/14/18 - Critical Care Critical Care patient: No
--- NOTE | 2018-05-14 13:59 | PN ---
Teaching Attending Note Name of Resident: Iraj Pierre (Nephrology) ATTENDING PHYSICIAN STATEMENT I saw and evaluated the patient. I reviewed the resident's note and discussed the case with the resident. I agree with the resident's findings and plan as documented. Renal Follow up Pt seen and examined at bedside. She was admitted with hyponatremia that has been improving. She presented with nausea and vomiting however she was on opioids and smokes cannabis daily. She has had about a 20 pound weight loss. Current Medications Generic Name Dose Route Start Last Admin Trade Name Freq PRN Reason Stop Dose Admin Acetaminophen 325 mg 05/13/18 21:59 05/14/18 12:41 Tylenol - PO 325 mg Q12H PRN Administration PAIN LEVEL 6-10 Amitriptyline HCl 10 mg 05/13/18 22:00 05/13/18 21:39 Elavil - PO 10 mg HS OSCAR Administration Arformoterol Tartrate 1 amp 05/13/18 22:00 Brovana (Restricted To Pulmonology/Resp) - NEB BID OSCAR Atorvastatin Calcium 20 mg 05/13/18 22:00 05/13/18 21:39 Lipitor - PO 20 mg HS OSCAR Administration Carvedilol 12.5 mg 05/13/18 22:00 05/14/18 09:46 Coreg - PO 12.5 mg BID OSCAR Administration Enoxaparin Sodium 40 mg 05/14/18 10:00 05/14/18 09:48 Lovenox - SQ 40 mg DAILY OSCAR Administration Ibuprofen 600 mg 05/14/18 10:00 05/14/18 09:53 Motrin - PO Not Given DAILY OSCAR Levetiracetam 750 mg 05/13/18 22:00 05/14/18 09:47 Keppra - PO 750 mg BID OSCAR Administration Levothyroxine Sodium 25 mcg 05/14/18 10:00 05/14/18 09:47 Synthroid - PO 25 mcg DAILY OSCAR Administration Losartan Potassium 50 mg 05/14/18 10:00 05/14/18 09:47 Cozaar - PO 50 mg DAILY OSCAR Administration Metoclopramide HCl 5 mg 05/13/18 17:43 05/14/18 09:47 Reglan - PO 5 mg DAILY OSCAR Administration Morphine Sulfate 15 mg 05/14/18 10:00 05/14/18 09:48 Ms Contin - PO 15 mg DAILY OSCAR Administration Nifedipine 60 mg 05/14/18 10:00 05/14/18 09:46 Procardia Xl - PO 60 mg DAILY OSCAR Administration Ondansetron HCl 4 mg 05/13/18 17:13 05/14/18 06:18 Zofran Injection IVPUSH 4 mg Q8H PRN Administration NAUSEA Oxycodone HCl 5 mg 05/13/18 21:59 05/14/18 12:40 Roxicodone - PO 5 mg Q12H PRN Administration PAIN LEVEL 6-10 Pantoprazole Sodium 40 mg 05/14/18 10:00 05/14/18 09:46 Protonix - PO 40 mg DAILY OSCAR Administration Last Vital Signs Temp Pulse Resp BP Pulse Ox 97.9 F 50 L 18 195/74 H 95 05/14/18 10:00 05/14/18 10:00 05/14/18 10:00 05/14/18 10:00 05/13/18 21:00 Laboratory Tests 04/02/11 07/20/11 11/25/11 07:00 22:17 19:40 Sodium 126 L 122 L* TSH Ur Specific [place] Urine Protein Urine Blood Urine Osmolality 86 L 11/26/11 11/26/11 12/10/11 07:45 20:00 16:00 Sodium 126 L TSH Ur Specific [place] Urine Protein Urine Blood Urine Osmolality 207 L D 127 L D 01/08/12 03/17/12 03/19/12 21:25 21:40 07:00 Sodium 138 TSH Ur Specific [place] Urine Protein Urine Blood Urine Osmolality 123 L 138 L 12/11/13 03/26/17 03/27/17 06:00 09:00 06:20 Sodium 133 L 123 L* D 130 L TSH Ur Specific [place] Urine Protein Urine Blood Urine Osmolality 05/13/18 05/13/18 05/13/18 09:47 11:15 15:20 Sodium 120 L 125 L TSH Ur Specific [place] 1.008 L Urine Protein Negative Urine Blood 1+ H Urine Osmolality 05/14/18 07:15 Sodium 129 L TSH 5.92 H Ur Specific [place] Urine Protein Urine Blood Urine Osmolality Impression 1. hyponatremia 2. chronic back pain 3. htn 4. hld 5. weight loss Plan - hyponatremia workup in progress - she is responding to saline - repeat labs in am - recommend ate appropriate screening as she has weight loss - smoking cessation
[2018-05-14] MEDS ORDERED: ARFORMOTEROL TARTRATE 15 MCG/2 ML VIAL NEB SCH (20:11)
[2018-05-14] MEDS ORDERED: PT OWN MED DRAWER 7, Y5N ONE (20:33)
[2018-05-14] MEDS: AMITRIPTYLINE HCL 10 MG TABLET (FP) PO SCH (21:47)
[2018-05-14] MEDS: ATORVASTATIN CA 20 MG TABLET (FP) PO SCH (21:47)
[2018-05-14] MEDS ORDERED: morphine CARPU-JECT 2 MG/1 ML DISP.SYRIN IVPUSH ONE (22:56)
[2018-05-14] MEDS ORDERED: KETOROLAC TROMETHAMINE 30 MG/1 ML VIAL IVPUSH ONE (22:59)
--- NOTE | 2018-05-14 23:33 | PN ---
Progress Note, Physician History of Present Illness: No further nausea or vomiting - Current Medication List Current Medications: Active Medications Acetaminophen (Tylenol -) 325 mg PO Q12H PRN PRN Reason: PAIN LEVEL 6-10 Last Admin: 05/14/18 12:41 Dose: 325 mg Amitriptyline HCl (Elavil -) 10 mg PO HS [facility] Last Admin: 05/14/18 21:47 Dose: 10 mg Arformoterol Tartrate (Brovana (Restricted To Pulmonology/Resp) -) 1 amp NEB RBID [facility] Atorvastatin Calcium (Lipitor -) 20 mg PO HS [facility] Last Admin: 05/14/18 21:47 Dose: 20 mg Carvedilol (Coreg -) 12.5 mg PO BID [facility] Last Admin: 05/14/18 21:47 Dose: 12.5 mg Enoxaparin Sodium (Lovenox -) 40 mg SQ DAILY [facility] Last Admin: 05/14/18 09:48 Dose: 40 mg Ibuprofen (Motrin -) 600 mg PO DAILY [facility] Last Admin: 05/14/18 09:53 Dose: Not Given Levetiracetam (Keppra -) 750 mg PO BID [facility] Last Admin: 05/14/18 21:46 Dose: 750 mg Levothyroxine Sodium (Synthroid -) 25 mcg PO DAILY [facility] Last Admin: 05/14/18 09:47 Dose: 25 mcg Losartan Potassium (Cozaar -) 50 mg PO DAILY [facility] Last Admin: 05/14/18 09:47 Dose: 50 mg Metoclopramide HCl (Reglan -) 5 mg PO DAILY [facility] Last Admin: 05/14/18 09:47 Dose: 5 mg Morphine Sulfate (Ms Contin -) 15 mg PO DAILY [facility] Last Admin: 05/14/18 09:48 Dose: 15 mg Nifedipine (Procardia Xl -) 60 mg PO DAILY [facility] Last Admin: 05/14/18 09:46 Dose: 60 mg Ondansetron HCl (Zofran Injection) 4 mg IVPUSH Q8H PRN PRN Reason: NAUSEA Last Admin: 05/14/18 06:18 Dose: 4 mg Oxycodone HCl (Roxicodone -) 5 mg PO Q12H PRN PRN Reason: PAIN LEVEL 6-10 Last Admin: 05/14/18 12:40 Dose: 5 mg Pantoprazole Sodium (Protonix -) 40 mg PO DAILY [facility] Last Admin: 05/14/18 09:46 Dose: 40 mg - Objective Vital Signs: Vital Signs Temperature 98.3 F 05/14/18 22:00 Pulse Rate 59 L 05/14/18 22:00 Respiratory Rate 17 05/14/18 22:00 Blood Pressure 151/51 L 05/14/18 22:00 O2 Sat by Pulse Oximetry (%) 95 05/14/18 21:00 Neck: Yes: WNL, Supple Cardiovascular: Yes: WNL, Regular Rate and Rhythm Respiratory: Yes: WNL, Regular, CTA Bilaterally Gastrointestinal: Yes: WNL, Normal Bowel Sounds, Soft Labs: CBC, BMP 05/14/18 07:15 05/14/18 07:15 Problem List - Problems (1) Cyclic vomiting syndrome Assessment/Plan: Pt tolerating diet DC planning for am Code(s): G43.A0 - CYCLICAL VOMITING, NOT INTRACTABLE (2) Chronic pain Assessment/Plan: Pt has appointment to see her pain management doctor in am Code(s): G89.29 - OTHER CHRONIC PAIN (3) HLD (hyperlipidemia) Assessment/Plan: Cont lipitor Code(s): E78.5 - HYPERLIPIDEMIA, UNSPECIFIED (4) HTN (hypertension) Assessment/Plan: BP stable Cont coreg/losartan Code(s): I10 - ESSENTIAL (PRIMARY) HYPERTENSION (5) Hypothyroidism Assessment/Plan: Cont levothyroxine Code(s): E03.9 - HYPOTHYROIDISM, UNSPECIFIED (6) Seizure Assessment/Plan: Cont keppra Code(s): R56.9 - UNSPECIFIED CONVULSIONS
[2018-05-15] MEDS: oxyCODONE HCL 5 MG TABLET PO PRN (02:50)
[2018-05-15] MEDS: ACETAMINOPHEN 325 MG TABLET (FP) PO PRN (02:50)
[2018-05-15 07:41] VITALS: BP 141/41; PULSE 56; TEMP 97.9
== END 2018-05-15 08:31 | disposition home or self-care (01) | DRG 641 ==
LOC: JER 08:23 → JERBED 14:38 → J5S 18:25
PROVIDERS: ADMIT Internal Medicine; ATTEND Internal Medicine
DX: E87.1 Hypo-osmolality and hyponatremia (principal); K86.1 Other chronic pancreatitis; Z68.1 Body mass index [BMI] 19.9 or less, adult; G43.A0 Cyclical vomiting, in migraine, not intractable; G89.29 Other chronic pain; I10 Essential (primary) hypertension; E03.9 Hypothyroidism, unspecified; R56.9 Unspecified convulsions; E78.5 Hyperlipidemia, unspecified; E87.6 Hypokalemia; R31.9 Hematuria, unspecified; R63.4 Abnormal weight loss
CPT/HCPCS: 36415; 76775-TC; 80048; 80053; 81003; 81015; 82436; 82550; 82570; 83690; 83930; 83935; 84133; 84300; 84443; 84484; 84550; 85025; 90688; 93005; 93010; 94640; 99285-25; G0008; J7030

== ENCOUNTER 2018-10-15 09:23 | Emergency (ER) | payer OTHER ==
[2018-10-15 09:32] VITALS: BP 115/57; PULSE 68; TEMP 98; BMI 18.8
--- NOTE | 2018-10-15 10:25 | PDOC ---
History of Present Illness - General Chief Complaint: Injury Stated Complaint: LT TOE INJURY Time Seen by Provider: 10/15/18 10:13 History Source: Patient (L toe laceration) - History of Present Illness Pain Location: reports: none Method of Injury: Yes: fall Loss of Consciousness: no loss of consciousness Associated Symptoms (Fall): denies symptoms, chest pain, dizziness, headache, lightheadedness, neck pain Past History - Travel Traveled outside of the country in the last 30 days: No Close contact w/someone who was outside of country & ill: No - Past Medical History Allergies/Adverse Reactions: Allergies Allergy/AdvReac Type Severity Reaction Status Date / Time No Known Drug Allergies Allergy Verified 10/15/18 09:31 Home Medications: Ambulatory Orders Carvedilol [Coreg -] 12.5 mg PO BID 03/26/17 Ibuprofen 600 mg PO DAILY 03/26/17 Levothyroxine [Synthroid -] 25 mcg PO DAILY 03/26/17 Morphine Sulfate 15 mg PO BID PRN 03/26/17 Nifedipine ER [Procardia XL -] 60 mg PO DAILY 03/26/17 Oxycodone HCl/Acetaminophen [Percocet 5-325 mg Tablet] 1 tab PO BID PRN levETIRAcetam [Keppra -] 750 mg PO BID #60 tablet 03/29/17 Arformoterol Tartrate [Brovana] 15 mcg IH BID 05/13/18 Losartan Potassium 50 mg PO DAILY 05/13/18 oxyCODONE HCL [Roxicodone -] 5 mg PO Q12H PRN tablet MDD 2 05/15/18 Atorvastatin Calcium 20 mg PO DAILY 10/15/18 Metoclopramide HCl 5 mg PO ASDIR 10/15/18 Omeprazole 40 mg PO DAILY 10/15/18 Anemia: No Asthma: No Cancer: No Cardiac Disorders: Yes CVA: No COPD: No CHF: No DVT: No Dementia: No Diabetes: No GI Disorders: Yes (GERD) Disorders: No HTN: Yes Hypercholesterolemia: Yes Liver Disease: No Seizures: Yes Thyroid Disease: Yes (HYPOTHYROIDISM) - Surgical History Abdominal Surgery: No Appendectomy: No Cardiac Surgery: Yes (stents x 5) Cholecystectomy: No Lung Surgery: No Neurologic Surgery: No Orthopedic Surgery: Yes (spinal) - Immunization History Td Vaccination: Yes Immunization Up to Date: Yes - Suicide/Smoking/Psychosocial Hx Smoking Status: Yes Smoking History: Never smoked Have you smoked in the past 12 months: Yes Number of Cigarettes Smoked Daily: 10 Information on smoking cessation initiated: No 'Breaking Loose' booklet given: 03/13/12 Hx Alcohol Use: No Drug/Substance Use Hx: No Substance Use Type: None Hx Substance Use Treatment: No Trauma Specific PMHX - Complaint Specific PMHX Arthritis: No Review of Systems - Review of Systems Is the patient limited Icelandic proficient: No Constitutional: No: Chills, Fever Musculoskeletal: Yes: Joint Pain, Other (left toe pain). No: Joint Swelling, Muscle Pain Neurological: No: Headache, Numbness *Physical Exam - Vital Signs Last Vital Signs Temp Pulse Resp BP Pulse Ox 98 F 68 19 115/57 L 97 10/15/18 09:29 10/15/18 09:29 10/15/18 09:29 10/15/18 09:10/15/18 09:29 - Physical Exam General Appearance: Yes: Nourished Respiratory/Chest: positive: Lungs Clear, Normal Breath Sounds Cardiovascular: positive: Regular Rhythm, Regular Rate, S1, S2 Extremity: positive: Normal Capillary Refill, Normal Range of Motion, Other (L toe: 2cm laceration noted in the dorsum aspect of left great toe, middle of shaft, FROM, distal pulse intact) 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: 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 NML intact, Fully Oriented, Alert, Normal Mood/ Affect, Normal Response, Motor Strength 5/5 Procedures - Laceration/Wound Repair Left Toe Wound Explored: clean, no foreign body present Wound's Depth, Shape: superficial Irrigated w/ Saline: Yes Betadine Prep: Yes Anesthesia: 2% Lidocaine Wound Repaired With: Sutures Suture Size/Type: 4:0 Number of Sutures: 4 Sterile Dressing Applied: Yes ED Treatment Course - RADIOLOGY Radiology Studies Ordered: Category Date Time Status TOE(S) LEFT [RAD] Stat Radiology 10/15/18 10:20 Ordered Medical Decision Making - Medical Decision Making 62y/o F with Left great toe pain s/p fall this morning while attempting to put up curtains this morning, he feet shifted on her couch pt reports she lost her balance and landed on her foot she denies LOC or head trauma she reports her toe hyperextended and she notched a cut tetanus status unknown xray neg lac repaired pt will f/u with PCP re: tetanus status 10/15/18 13:32 10/15/18 13:32 *DC/Admit/Observation/Transfer Diagnosis at time of Disposition: Toe laceration Qualifiers: Encounter type: initial encounter Toe: great toe Damage to nail status: without damage Foreign body presence: without foreign body Laterality: left Qualified Code(s): S91.112A - Laceration without foreign body of left great toe without damage to nail, initial encounter - Discharge Dispostion Disposition: HOME Condition at time of disposition: Stable - Referrals - Patient Instructions Printed Discharge Instructions: DI for Laceration Repair, DI for Suture Removal Additional Instructions: Please keep area dry and covered Follow up with your Primary care doctor for suture removal in 10 days Return to the ER if worsening pain, infection, redness, discharge occur - Post Discharge Activity
== END 2018-10-15 11:41 | disposition home or self-care (01) ==
LOC: JERFT 09:23
PROC: 0HQNXZZ Repair Left Foot Skin, External Approach (ICD-10-PCS; principal; 2018-10-15)
DX: S91.112A Laceration without foreign body of left great toe without damage to nail, initial encounter (principal); W07.XXXA Fall from chair, initial encounter; Y93.E9 Activity, other interior property and clothing maintenance; Y92.038 Other place in apartment as the place of occurrence of the external cause; Y99.8 Other external cause status; I25.10 Atherosclerotic heart disease of native coronary artery without angina pectoris; I10 Essential (primary) hypertension; Z95.5 Presence of coronary angioplasty implant and graft; E78.5 Hyperlipidemia, unspecified; E03.9 Hypothyroidism, unspecified; K21.9 Gastro-esophageal reflux disease without esophagitis
CPT/HCPCS: 12001-25; 73660-TC-LT-FY; 99282-25

== ENCOUNTER 2018-10-25 15:13 | Emergency (ER) | payer OTHER ==
[2018-10-25 15:20] VITALS: BP 172/85; PULSE 62; TEMP 98.5; BMI 21.9
--- NOTE | 2018-10-25 15:22 | PDOC ---
Rapid Medical Evaluation Chief Complaint: Headache Time Seen by Provider: 10/25/18 15:15 Medical Evaluation: Allergies Allergy/AdvReac Type Severity Reaction Status Date / Time No Known Drug Allergies Allergy Verified 10/15/18 09:31 10/25/18 15:15 I have performed a brief in-person evaluation of this patient. The patient presents with a chief complaint of: frontal head ache x 2 days, c/o tiredness/ but states pain is the "worst ever" no relief with exedrine , take baby ASA daily + seizure disorder Pertinent physical exam findings: pale, A&Ox 3, no deficits I have ordered the following: CT head, The patient will proceed to the ED for further evaluation. 10/25/18 15:22 Discharge Disposition - Diagnosis Headache - Referrals Referrals: Kareem Zabala MD [Primary Care Provider] - - Patient Instructions - Post Discharge Activity
[2018-10-25] MEDS ORDERED: ONDANSETRON *ODT* 4 MG TABLET SL ONE (16:54)
[2018-10-25] MEDS ORDERED: KETOROLAC TROMETHAMINE 60 MG/2 ML VIAL IM ONE (16:54)
[2018-10-25] MEDS ORDERED: KETOROLAC TROMETHAMINE 60 MG/2 ML VIAL ONE (17:27)
[2018-10-25] MEDS ORDERED: ONDANSETRON *ODT* 4 MG TABLET ONE (17:28)
--- NOTE | 2018-10-25 17:36 | PDOC ---
History of Present Illness - General Chief Complaint: Headache Stated Complaint: Headache Time Seen by Provider: 10/25/18 15:15 History Source: Patient Exam Limitations: No Limitations - History of Present Illness Initial Comments: 10/25/18 17:30 62-year-old female presents to the emergency room with complaints of frontal throbbing headache relieved with Excedrin. Patient states has had headaches before but not to this extent. Patient also states mild nausea since onset. Patient denies visual changes, dizziness, chest pain, shortness of breath or fever. Timing/Duration: reports: 24 hours Severity: Yes: mild Associated Symptoms: reports: nausea/vomiting, other (headache) Past History - Travel Traveled outside of the country in the last 30 days: No Close contact w/someone who was outside of country & ill: No - Past Medical History Allergies/Adverse Reactions: Allergies Allergy/AdvReac Type Severity Reaction Status Date / Time No Known Drug Allergies Allergy Verified 10/25/18 15:19 Home Medications: Ambulatory Orders Carvedilol [Coreg -] 12.5 mg PO BID 03/26/17 Ibuprofen 600 mg PO DAILY 03/26/17 Levothyroxine [Synthroid -] 25 mcg PO DAILY 03/26/17 Morphine Sulfate 15 mg PO BID PRN 03/26/17 Nifedipine ER [Procardia XL -] 60 mg PO DAILY 03/26/17 Oxycodone HCl/Acetaminophen [Percocet 5-325 mg Tablet] 1 tab PO BID PRN levETIRAcetam [Keppra -] 750 mg PO BID #60 tablet 03/29/17 Arformoterol Tartrate [Brovana] 15 mcg IH BID 05/13/18 Losartan Potassium 50 mg PO DAILY 05/13/18 oxyCODONE HCL [Roxicodone -] 5 mg PO Q12H PRN tablet MDD 2 05/15/18 Atorvastatin Calcium 20 mg PO DAILY 10/15/18 Metoclopramide HCl 5 mg PO ASDIR 10/15/18 Omeprazole 40 mg PO DAILY 10/15/18 Anemia: No Asthma: No Cancer: No Cardiac Disorders: Yes CVA: No COPD: No CHF: No DVT: No Dementia: No Diabetes: No GI Disorders: Yes (GERD) Disorders: No HTN: Yes Hypercholesterolemia: Yes Liver Disease: No Seizures: Yes Thyroid Disease: Yes (HYPOTHYROIDISM) - Surgical History Abdominal Surgery: No Appendectomy: No Cardiac Surgery: Yes (stents x 5) Cholecystectomy: No Lung Surgery: No Neurologic Surgery: No Orthopedic Surgery: Yes (spinal) - Immunization History Td Vaccination: Yes Immunization Up to Date: Yes - Suicide/Smoking/Psychosocial Hx Smoking Status: Yes Smoking History: Never smoked Have you smoked in the past 12 months: No Number of Cigarettes Smoked Daily: 10 Information on smoking cessation initiated: No 'Breaking Loose' booklet given: 03/13/12 Hx Alcohol Use: No Drug/Substance Use Hx: No Substance Use Type: None Hx Substance Use Treatment: No Patient Lives Alone: No Lives with/in: spouse/SO Neuro Specific PMHX - Complaint Specific PMHX Glaucoma: No Review of Systems - Review of Systems Able to Perform ROS?: Yes Constitutional: No: Symptoms Reported HEENTM: No: Symptoms Reported Respiratory: No: Symptoms reported Cardiac (ROS): No: Symptoms Reported ABD/GI: Yes: Nausea Neurological: Yes: Headache Endocrine: No: Symptoms Reported Hematologic/Lymphatic: No: Symptoms Reported *Physical Exam - Vital Signs Last Vital Signs Temp Pulse Resp BP Pulse Ox 98.5 F 62 18 172/85 H 96 10/25/18 15:15 10/25/18 15:15 10/25/18 15:15 10/25/18 15:15 10/25/18 15:15 - Physical Exam General Appearance: Yes: Nourished, Appropriately Dressed. No: Apparent Distress HEENT: negative: Pale Conjunctivae Respiratory/Chest: positive: Lungs Clear, Normal Breath Sounds. negative: Respiratory Distress, Accessory Muscle Use Cardiovascular: positive: Regular Rhythm, Regular Rate. negative: Murmur Integumentary: positive: Normal Color, Warm, Moist Neurologic: positive: Motor Strength 5/5 (ambulatory) Medical Decision Making - Medical Decision Making 10/25/18 16:37 Complaint: Frontal headache worse than usual accompanied with nausea Exam. Patient with no neuro focal deficits vital signs stable Plan: Zofran, Toradol and head CT ordered 10/25/18 17:39 Stating feeling better. Patient will be discharged home patient states feeling better after receiving the above. Patient will be discharged home with Zofran and Motrin *DC/Admit/Observation/Transfer Diagnosis at time of Disposition: Headache - Discharge Dispostion Disposition: HOME Condition at time of disposition: Improved - Referrals Referrals: Kareem Zabala MD [Primary Care Provider] - - Patient Instructions Printed Discharge Instructions: DI for Migraine Additional Instructions: I recommend resting drinking plenty of fluids providing a soothing and cool environment. Take Motrin 600 mg as prescribed along with Zofran as needed for nausea. - Post Discharge Activity
== END 2018-10-25 18:55 | disposition home or self-care (01) ==
LOC: JER 15:13
PROC: 3E0233Z Introduction of Anti-inflammatory into Muscle, Percutaneous Approach (ICD-10-PCS; principal; 2018-10-25)
DX: R51 Headache (principal); I25.10 Atherosclerotic heart disease of native coronary artery without angina pectoris; I10 Essential (primary) hypertension; Z95.5 Presence of coronary angioplasty implant and graft; E78.00 Pure hypercholesterolemia, unspecified; E03.9 Hypothyroidism, unspecified; K21.9 Gastro-esophageal reflux disease without esophagitis; Z86.69 Personal history of other diseases of the nervous system and sense organs
CPT/HCPCS: 70450-TC; 99281-25; Q0162

== ENCOUNTER 2018-10-30 11:57 | Emergency (ER) | payer OTHER ==
[2018-10-30 12:14] VITALS: BP 118/59; PULSE 59; TEMP 98.3; BMI 19.5
--- NOTE | 2018-10-30 12:20 | PDOC ---
History of Present Illness - General Chief Complaint: Pain, Acute Stated Complaint: ABD.PAIN W/VOMITING Time Seen by Provider: 10/30/18 12:18 - History of Present Illness Initial Comments: 10/30/18 13:49 62f with pmh of HTN, pancreatitis, COPD, hypothyroidism, HLD and multiple stents and endarterectomy presents to the ED with 10/10 abdominal pain for the past 5 days. She was seen in the ED 5 days ago for headache and nausea/vomiting, was treated with motrin after CT was negative but since then she started having increasingly painful epigastric and periumbilical belly ache , constant and severe associated with vomiting yesterday but not today. The pain doesnt radiate anywhere.. No acid reflux. Denies fever, chills, diarrhea or constipation. Past History - Past Medical History Allergies/Adverse Reactions: Allergies Allergy/AdvReac Type Severity Reaction Status Date / Time No Known Drug Allergies Allergy Verified 10/25/18 15:19 Home Medications: Ambulatory Orders Carvedilol [Coreg -] 12.5 mg PO BID 03/26/17 Ibuprofen 600 mg PO DAILY 03/26/17 Levothyroxine [Synthroid -] 25 mcg PO DAILY 03/26/17 Morphine Sulfate 15 mg PO BID PRN 03/26/17 Nifedipine ER [Procardia XL -] 60 mg PO DAILY 03/26/17 Oxycodone HCl/Acetaminophen [Percocet 5-325 mg Tablet] 1 tab PO BID PRN levETIRAcetam [Keppra -] 750 mg PO BID #60 tablet 03/29/17 Arformoterol Tartrate [Brovana] 15 mcg IH BID 05/13/18 Losartan Potassium 50 mg PO DAILY 05/13/18 oxyCODONE HCL [Roxicodone -] 5 mg PO Q12H PRN tablet MDD 2 05/15/18 Atorvastatin Calcium 20 mg PO DAILY 10/15/18 Metoclopramide HCl 5 mg PO ASDIR 10/15/18 Omeprazole 40 mg PO DAILY 10/15/18 Ibuprofen [Motrin -] 600 mg PO TID PRN #21 tablet 10/25/18 Ondansetron HCl [Zofran] 4 mg PO TID PRN #12 tablet 10/25/18 Anemia: No Asthma: No Cancer: No Cardiac Disorders: Yes CVA: No COPD: No CHF: No DVT: No Dementia: No Diabetes: No GI Disorders: Yes (GERD) Disorders: No HTN: Yes Hypercholesterolemia: Yes Liver Disease: No Seizures: Yes Thyroid Disease: Yes (HYPOTHYROIDISM) - Surgical History Abdominal Surgery: No Appendectomy: No Cardiac Surgery: Yes (stents x 5) Cholecystectomy: No Lung Surgery: No Neurologic Surgery: No Orthopedic Surgery: Yes (spinal) - Immunization History Td Vaccination: Yes Immunization Up to Date: Yes - Suicide/Smoking/Psychosocial Hx Smoking Status: Yes Smoking History: Current every day smoker Have you smoked in the past 12 months: Yes Number of Cigarettes Smoked Daily: 10 Information on smoking cessation initiated: No 'Breaking Loose' booklet given: 03/13/12 Hx Alcohol Use: No Drug/Substance Use Hx: No Substance Use Type: None Hx Substance Use Treatment: No Abd/GI Specific PMHX - Complaint Specific PMHX GERD: Yes GI Ulcer Disease: No Review of Systems - Review of Systems Able to Perform ROS?: Yes Is the patient limited Nepalese proficient: No Constitutional: No: Symptoms Reported HEENTM: No: Symptoms Reported Respiratory: No: Symptoms reported Cardiac (ROS): No: Symptoms Reported ABD/GI: Yes: See HPI : No: Symptoms Reported Musculoskeletal: No: Symptoms Reported Integumentary: No: Symptoms Reported All Other Systems: Reviewed and Negative *Physical Exam - Vital Signs Last Vital Signs Temp Pulse Resp BP Pulse Ox 98.3 F 59 L 16 118/59 L 99 10/30/18 12:11 10/30/18 12:11 10/30/18 12:11 10/30/18 12:11 10/30/18 12:11 - Physical Exam General Appearance: Yes: Moderate Distress, Cachetic HEENT: positive: EOMI, NIDHI, Normal ENT Inspection Respiratory/Chest: positive: Lungs Clear, Normal Breath Sounds. negative: Chest Tender, Respiratory Distress Cardiovascular: positive: Regular Rhythm, Regular Rate, S1, S2 Gastrointestinal/Abdominal: positive: Normal Bowel Sounds, Tender (epigastric and periumbilical), Flat, Soft, Guarding Musculoskeletal: positive: Normal Inspection. negative: CVA Tenderness Extremity: positive: Normal Capillary Refill, Normal Inspection, Normal Range of Motion Integumentary: positive: Normal Color, Dry, Warm Neurologic: positive: Fully Oriented, Alert, Normal Mood/Affect, Normal Response ED Treatment Course - LABORATORY CBC & Chemistry Diagram: 10/30/18 13:30 10/30/18 13:30 Medical Decision Making - Medical Decision Making 10/30/18 15:11 62F with h/o hyponatremia and hypothyroidism present with 5 days of epigastric abdominal pain. Pancreatitis vs duodenal ulcers vs GERD vs WA vs AAA EKG: Sinus rhythm with 1st degree AV block, Septal infarct, age undetermined. Normal levels of amylase. Hyponatremia at 129. Bolus of NS. Will scan patient with IV contrast to evaluate source of the abdominal pain. 10/30/18 17:02 Somewhat limited visualization as noted above. No obvious acute abnormality is noted. As on a 2013 CT study common bile duct dilatation is seen with a 1.3 cm diameter. At least moderate left renal atrophy is again noted.. PAtient feeling better, asking for food. Food provided, tolerates PO, patient discharged with strict follow up. *DC/Admit/Observation/Transfer Diagnosis at time of Disposition: Hyponatremia, Abdominal pain - Discharge Dispostion Disposition: HOME Condition at time of disposition: Stable Decision to Admit order: No - Referrals Referrals: Kareem Zabala MD [Primary Care Provider] - Chaz Youssef MD [Staff Physician] - Alex Gonzalez MD [Staff Physician] - - Patient Instructions Printed Discharge Instructions: DI for Hyponatremia, Acute Abdominal Pain, DI for Hypothyroidism Additional Instructions: Follow up within the week with the referred Mail Handler Assistant and Heel Turner for you low salt concentration in the blood and for your scheduled endoscopy. Follow up with your primary Physician within the next 2-3 days. Come back to the emergency department for any new, worsening or concerning symptoms. - Post Discharge Activity
[2018-10-30] MEDS ORDERED: SODIUM CHLORIDE 1,000 ML IV STA (13:07)
[2018-10-30] MEDS ORDERED: ACETAMINOPHEN 1000 MG/100 ML VIAL (NON FORMULARY) IVPB ONE (13:32)
[2018-10-30 13:40] LABS: BASO % 0.7 % (0-2.0); EOS % 0.6 % (0-4.5); HEMATOCRIT 38.3 % (32.4-45.2); HEMOGLOBIN 13.8 GM/dL (10.7-15.3); LYMPH % 25.1 % (8-40); MCH 34.8 pg (25.7-33.7); MCHC 35.9 g/dl (32.0-36.0); MEAN CELL VOLUME 96.9 fl (80-96); MEAN PLT VOLUME 7.2 fl (7.5-11.1); MONO % 5.4 % (3.8-10.2); NEUT % 68.2 % (42.8-82.8); PLATELET COUNT 303 K/MM3 (134-434); RBC 3.96 M/mm3 (3.60-5.2); RDW 12.9 % (11.6-15.6); WHITE BLOOD COUNT 9.3 K/mm3 (4.0-10.0)
[2018-10-30 14:07] LABS: ALK PHOS 96 U/L (45-117); ANION GAP 8 MMOL/L (8-16); BILIRUBIN,TOTAL 0.5 mg/dL (0.2-1); BLOOD UREA NITROGEN 21.1 mg/dL (7-18); CALCIUM 9.5 mg/dL (8.5-10.1); CHLORIDE 90 mmol/L (98-107); CO2 29 mmol/L (21-32); CREATININE 1.1 mg/dL (0.55-1.3); GLUCOSE,RANDOM 104 mg/dL (74-106); LIPASE 136 U/L (73-393); POTASSIUM 3.7 mmol/L (3.5-5.1); SGOT/AST 19 U/L (15-37); SGPT/ALT 18 U/L (13-61); SODIUM 127 mmol/L (136-145); TOT PROT 6.9 g/dl (6.4-8.2)
--- NOTE | 2018-10-30 14:50 | EKG ---
Test Reason : Blood Pressure : / mmHG Vent. Rate : 068 BPM Atrial Rate : 068 BPM P-R Int : 222 ms QRS Dur : 076 ms QT Int : 428 ms P-R-T Axes : 085 063 055 degrees QTc Int : 455 ms POOR DATA QUALITY, INTERPRETATION MAY BE ADVERSELY AFFECTED SINUS RHYTHM WITH 1ST DEGREE A-V BLOCK SEPTAL INFARCT , AGE UNDETERMINED ABNORMAL ECG WHEN COMPARED WITH ECG OF 13-MAY-2018 09:46, NO SIGNIFICANT CHANGE WAS FOUND Confirmed by Arya Kevin MD ([id number]) on 10/30/2018 2:49:38 PM Referred By: Confirmed By:Arya Kevin MD
--- NOTE | 2018-10-30 14:55 | PDOC ---
Documentation entered by Emy Negron SCRIBE, acting as scribe for Lucila Amanda MD. Lucila Amanda MD: This documentation has been prepared by the Jamil serna Brenda, SCRIBE, under my direction and personally reviewed by me in its entirety. I confirm that the documentation accurately reflects all work, treatment, procedures, and medical decision making performed by me. Attending Attestation - Resident Resident Name: Guille Freeman - ED Attending Attestation I have performed the following: I have examined & evaluated the patient, The case was reviewed & discussed with the resident, I agree w/resident's findings & plan, Exceptions are as noted - HPI HPI: 10/30/18 14:34 The patient is a 62 year old female, with a significant PMH of HTN, pancreatitis , COPD, hypothyroidism, HLD and multiple stents and endarterectomy who presents to the emergency department with 5 days of a 10/10 constant upper abdominal pain. The patient reports abdominal pain since , accompanied by an episode of vomiting this morning. The patient also notes having chills, and a decreased P.O intake. She notes taking 2 motrins to no avail. Patient notes she had a scheduled endoscopy on , but did not attend, secondary to pain. LBM was 1 week ago. The patient denies chest pain, shortness of breath, and dizziness. Denies fever , diarrhea and constipation. Allergies: NKA Social history: Smoker - Physicial Exam PE: 10/30/18 14:34 GENERAL: +Cachexia Awake, alert, and fully oriented. HEAD: No signs of trauma EYES: PERRLA, EOMI, sclera anicteric, conjunctiva clear ENT: Auricles normal inspection, hearing grossly normal, nares patent, oropharynx clear without exudates. Moist mucosa NECK: Normal ROM, supple, no lymphadenopathy, JVD, or masses LUNGS: Breath sounds equal, clear to auscultation bilaterally. No wheezes, and no crackles HEART: Regular rate and rhythm, normal S1 and S2, no murmurs, rubs or gallops ABDOMEN: +Epigastric tenderness to deep palpation. No Guarding. No rebound Soft , nontender, normoactive bowel sounds. No guarding, no rebound. No masses EXTREMITIES: Normal range of motion, no edema. No clubbing or cyanosis. No cords, erythema, or tenderness NEUROLOGICAL: Cranial nerves II through XII grossly intact. Normal speech, normal gait SKIN: Warm, Dry, normal turgor, no rashes or lesions noted. - Medical Decision Making 10/30/18 14:44 Pt presents to the ED complaining of epigastric pain that has been persistent for 5 days. History of pancreatitis in the past. Mild abdominal tenderness on my exam. Differential includes pancreatitis, biliary disease, less likely ACS or PNA. Will check labs and CT abdomen pelvis, reassess. 10/30/18 14:45 10/30/18 14:55
[2018-10-30] MEDS ORDERED: MAG HYDROX/AL HYDROX/SIMETH -MYLANTA- ORAL SUSPENSION PO ONE (16:54)
== END 2018-10-30 17:20 | disposition home or self-care (01) ==
LOC: JER 11:57
PROC: 3E0337Z Introduction of Electrolytic and Water Balance Substance into Peripheral Vein, Percutaneous Approach (ICD-10-PCS; principal; 2018-10-30)
DX: R10.9 Unspecified abdominal pain (principal); E87.1 Hypo-osmolality and hyponatremia; E03.9 Hypothyroidism, unspecified; K86.1 Other chronic pancreatitis; K21.9 Gastro-esophageal reflux disease without esophagitis; J44.9 Chronic obstructive pulmonary disease, unspecified
CPT/HCPCS: 36415; 71045-TC-FY; 74177-TC; 80053; 83690; 84443; 84484; 85025; 93005; 93010; 96360; 99282-25; J7030

== ENCOUNTER 2018-11-01 06:22 | Inpatient (IN) | payer OTHER ==
--- NOTE | 2018-11-01 06:56 | PDOC ---
History of Present Illness - General Chief Complaint: Pain Stated Complaint: ABDOMINAL PAIN Time Seen by Provider: 11/01/18 06:55 - History of Present Illness Initial Comments: 11/01/18 08:34 The patient is a 62 year old female with a history of HTN, HLD, GERD, CAD, Chronic back pain who presents for evaluation of abdominal pain and back pain. The patient reports that she has been experiencing twisting crampy lower abdominal pain over the past 1 week. She states that she initial presented 7 days ago for a headache and was discharged home after negative work up. She states that she presented again 4 days ago for the abdominal pain and was discharged home after a negative work up including CT scan. The patient notes that she was scheduled for a colonoscopy this morning, however noted worsening abdominal pain as well as worsening of her chronic back pain prompting her presentation to the ED for further evaluation. She otherwise denies fevers, chills, SOB, chest pain, nausea, vomiting, or changes with urination or bowel movements. Past History - Past Medical History Allergies/Adverse Reactions: Allergies Allergy/AdvReac Type Severity Reaction Status Date / Time No Known Drug Allergies Allergy Verified 11/01/18 06:35 Home Medications: Ambulatory Orders Carvedilol [Coreg -] 12.5 mg PO BID 03/26/17 Levothyroxine [Synthroid -] 75 mcg PO DAILY 03/26/17 Morphine Sulfate 15 mg PO BID PRN 03/26/17 Nifedipine ER [Procardia XL -] 60 mg PO DAILY 03/26/17 levETIRAcetam [Keppra -] 750 mg PO BID #60 tablet 03/29/17 oxyCODONE HCL [Roxicodone -] 5 mg PO Q12H PRN tablet MDD 2 05/15/18 Atorvastatin Calcium 20 mg PO DAILY 10/15/18 Metoclopramide HCl 5 mg PO ASDIR 10/15/18 Ibuprofen [Motrin -] 600 mg PO TID PRN #21 tablet 10/25/18 Ondansetron HCl [Zofran] 4 mg PO TID PRN #12 tablet 10/25/18 Albuterol 0.083% Nebulizer Kathi [Ventolin 0.083% Nebulizer Soln -] 1 neb NEB Q6H PRN 11/01/18 Anemia: No Asthma: No Cancer: No Cardiac Disorders: Yes CVA: No COPD: No CHF: No DVT: No Dementia: No Diabetes: No GI Disorders: Yes (GERD) Disorders: No HTN: Yes Hypercholesterolemia: Yes Liver Disease: No Seizures: Yes Thyroid Disease: Yes (HYPOTHYROIDISM) - Surgical History Abdominal Surgery: No Appendectomy: No Cardiac Surgery: Yes (stents x 5) Cholecystectomy: No Lung Surgery: No Neurologic Surgery: No Orthopedic Surgery: Yes (spinal) - Immunization History Td Vaccination: Yes Immunization Up to Date: Yes - Suicide/Smoking/Psychosocial Hx Smoking Status: Yes Smoking History: Current every day smoker Have you smoked in the past 12 months: Yes Number of Cigarettes Smoked Daily: 5 Information on smoking cessation initiated: No 'Breaking Loose' booklet given: 03/13/12 Hx Alcohol Use: No Drug/Substance Use Hx: No Substance Use Type: None Hx Substance Use Treatment: No Review of Systems - Review of Systems Comments:: 11/01/18 08:39 Constitutional: No fevers, chills, fatigue, malaise HEENT: No Rhinorrhea, nasal congestion, visual changes Cardiovascular: No chest pain, syncope, palpitations, lightheadedness Respiratory: No Cough, SOB, Hemoptysis, Gastrointestinal: Abdominal pain. No Nausea, Vomiting, Constipation, Diarrhea, Melena Genitourinary: No Dysuria, Frequency, Urgency, Hesitancy, Hematuria, Flank pain Musculoskeletal: Lower back pain. No Myalgia, arthralgia Skin: No rashes, itching, bruising, pallor Neurologic: No Headache, Dizziness, Numbness, Weakness, or Tingling Psychiatric: No Hallucinations. No SI or HI *Physical Exam - Vital Signs Last Vital Signs Temp Pulse Resp BP Pulse Ox 97.9 F 59 L 18 149/89 100 11/01/18 06:22 11/01/18 06:22 11/01/18 06:22 11/01/18 06:22 11/01/18 06:22 - Physical Exam Comments: 11/01/18 08:40 General Appearance: Nourished. No Apparent Distress HEENT: No Pharyngeal Erythema, Tonsillar Exudate, Tonsillar Erythema Neck: No Cervical Lymphadenopathy Respiratory/Chest: Lungs Clear, Normal Breath Sounds. No Crackles, Rales, Rhonchi, Wheezing Cardiovascular: Regular Rhythm, Regular Rate. No Murmur, Gallops, Rubs Gastrointestinal/Abdominal: Normal Bowel Sounds, Soft. Periumbilical discomfort with palpation. No Guarding, Rebound, Musculoskeletal: No CVA Tenderness Extremity: Normal Capillary Refill Integumentary: Normal Color, Dry, Warm Neurologic: Fully Oriented, Alert, Normal Mood/Affect, Normal Response, ED Treatment Course - LABORATORY CBC & Chemistry Diagram: 11/01/18 07:51 11/01/18 07:51 Medical Decision Making - Medical Decision Making 11/01/18 08:41 The patient is a 62 year old female with a history of HTN, HLD, GERD, CAD, Chronic back pain who presents for evaluation of abdominal pain and back pain. Given the patient's history and physical exam, we will obtain a cbc, cmp, lipase , lactate, troponin, ua to evaluate further. The patient had recent Ct abdomen/ pelvis 4 days ago which was unmarkable and we will obtain a plain film to evaluate today. We will treat with reglan, benadryl, tylenol, morphine, pepcid and continue to monitor and reassess while here in the ED. 11/01/18 09:49 CBC demonstrates an elevated wbc to 12 with a neutrophil shift. CMP is at the patient's baseline. Plain films do not demonstrate any acute process as read by our radiologist. The patient continues to have pain on exam. Given her new elevated wbc with worsening abdominal pain, we will obtain a repeat Ct abdomen/ pelvis to evaluate further. 11/01/18 12:26 We discussed the case with radiology who have added an addendum to the patient' s recent CT read concerning for colitis. We have cancelled the patient's CT scan today. We will treat with levaquin and flagyl for colitis. The patient will require admission for further monitoring and management. *DC/Admit/Observation/Transfer Diagnosis at time of Disposition: Colitis Abdominal pain Qualifiers: Abdominal location: unspecified location Qualified Code(s): R10.9 - Unspecified abdominal pain - Discharge Dispostion Condition at time of disposition: Stable Decision to Admit order: Yes - Referrals - Patient Instructions - Post Discharge Activity
[2018-11-01] MEDS ORDERED: FAMOTIDINE 20 MG/50 ML IVPB 20 MG/50 ML MG IVPB ONE ×2 (07:25→07:44)
[2018-11-01] MEDS ORDERED: LIDOCAINE 5% TOPICAL PATCH TP ONE (07:25)
[2018-11-01] MEDS ORDERED: METOCLOPRAMIDE HCL INJECTION 10 MG/2 ML VIAL IVPUSH ONE (07:25)
[2018-11-01] MEDS ORDERED: ACETAMINOPHEN 1000 MG/100 ML VIAL (NON FORMULARY) IVPB ONE (07:25)
[2018-11-01] MEDS ORDERED: morphine CARPU-JECT 4 MG/1 ML DISP.SYRIN IVPUSH ONE ×2 (07:38→12:02)
[2018-11-01] MEDS ORDERED: LIDOCAINE 5% TOPICAL PATCH ONE (07:43)
[2018-11-01] MEDS ORDERED: METOCLOPRAMIDE HCL INJECTION 10 MG/2 ML VIAL ONE (07:43)
[2018-11-01] MEDS ORDERED: ACETAMINOPHEN INJECTION 100 ML IVPB ONE (07:43)
[2018-11-01] MEDS ORDERED: morphine SULFATE 4 MG/ML VIAL ONE (08:13)
[2018-11-01 08:22] LABS: BASO % 0.6 % (0-2.0); EOS % 1.2 % (0-4.5); HEMATOCRIT 38.2 % (32.4-45.2); HEMOGLOBIN 13.7 GM/dL (10.7-15.3); LYMPH % 15.7 % (8-40); MCH 34.3 pg (25.7-33.7); MCHC 35.8 g/dl (32.0-36.0); MEAN PLT VOLUME 7.3 fl (7.5-11.1); NEUT % 76.5 % (42.8-82.8); PLATELET COUNT 290 K/MM3 (134-434); RBC 3.98 M/mm3 (3.60-5.2); RDW 12.7 % (11.6-15.6); WHITE BLOOD COUNT 12.1 K/mm3 (4.0-10.0)
[2018-11-01 08:40] LABS: ALBUMIN 3.8 g/dl (3.4-5.0); ALK PHOS 93 U/L (45-117); ANION GAP 9 MMOL/L (8-16); BILIRUBIN,TOTAL 0.8 mg/dL (0.2-1); BLOOD UREA NITROGEN 12.4 mg/dL (7-18); CALCIUM 8.7 mg/dL (8.5-10.1); CHLORIDE 87 mmol/L (98-107); CO2 26 mmol/L (21-32); CREATININE 0.9 mg/dL (0.55-1.3); GLUCOSE,RANDOM 108 mg/dL (74-106); LIPASE 83 U/L (73-393); POTASSIUM 3.3 mmol/L (3.5-5.1); SGOT/AST 20 U/L (15-37); SGPT/ALT 17 U/L (13-61); SODIUM 122 mmol/L (136-145); TOT PROT 6.6 g/dl (6.4-8.2)
[2018-11-01 10:07] LABS: PH,URINE 5.5 (5.0-8.0); URINE APPEARANCE CLEAR; URINE BILIRUBIN NEGATIVE (NEGATIVE); URINE COLOR YELLOW; URINE GLUCOSE (UA) NEGATIVE (NEGATIVE); URINE KETONE TRACE (NEGATIVE); URINE LEUK ESTERASE NEGATIVE (NEGATIVE); URINE NITRITE NEGATIVE (NEGATIVE); URINE PROTEIN NEGATIVE (NEGATIVE); URINE UROBILINOGEN 0.2 mg/dL (0.2-1.0)
--- NOTE | 2018-11-01 10:36 | PDOC ---
Documentation entered by Joslyn Negron SCRIBE, acting as scribe for Isaiah Lopez MD. Isaiah Lopez MD: This documentation has been prepared by the Jamil serna Adrianna, SCRIBE, under my direction and personally reviewed by me in its entirety. I confirm that the documentation accurately reflects all work, treatment, procedures, and medical decision making performed by me. Attending Attestation - Resident Resident Name: Lucas Wilks - ED Attending Attestation I have performed the following: I have examined & evaluated the patient, The case was reviewed & discussed with the resident, I agree w/resident's findings & plan, Exceptions are as noted - HPI HPI: The patient is a 62 year old female, with a significant PMH of hypertension, hyperlipidemia, GERD, coronary artery disease, and chronic back pain, who presents to the ED for evaluation of abdominal and back pain for 1 week. Patient describes her pain as a twisting cramping sensation. She was seen in the ED 4 days ago for the same complaint and was discharged with negative work- up and CT scan. Allergies: NKA, NKDA Surgical History: 5 stents, spinal surgery Social History: Smoker PCP: Dr. Sy 11/01/18 09:50 - Physicial Exam PE: 11/01/18 10:41 Vitals: Triage Vital signs reviewed General Appearance: no acute distress, well nourished well developed, Head: Atraumatic, Eyes: Pupils equal reactive round, extraocular movement intact Cardiac: Regular rate and rhythym, no murmurs, no rubs, no gallops, Lungs: Clear to auscultation bilateral, good air movement bilaterally, Abdomen: Soft, non distended, normal bowel sounds, moderate suprapubic left lower quadrant tenderness to palpation. Extremities: Full range of motion to all extremities, no cyanosis, clubbing, or edema Skin: Warm and dry, no rashes or lesions, no rash, no petechiae Psych: normal mood, normal affect - Medical Decision Making 62 year old female, with a history of hypertension, hyperlipidemia, GERD, coronary artery disease, and chronic back pain, who presents to the ED with abdominal and back pain. Plan: Obtain labs, abdomen X-Ray. Administer Reglan, Benadryl, Tylenol, Morphine, and Pepcid. Reassess. EXAM#: TYPE/EXAM: RESULT: [id number] RAD/ABDOMEN FLAT UPRIGHT Abdomen: Pain 2 views of the abdomen reveal clear lung bases, large heart, no sign of free air and some air and stool seen in the colon with some of opaque material in the bowel. There is no sign of ileus or obstruction. There is no sign of a fecal impaction. Organomegaly or calcifications of significance are not seen. There are heavy vascular calcifications. A CT scan of the abdomen performed on 2018 did not show an obstructive process. Reported By: Kolton Jamison MD 11/01/18 08:49 Reassessment: Patient's Abdomen X-Ray showed no acute findings, will obtain CT abdomen/pelvis for further evaluation. Patient with now 1 week history of lower abdominal pain. Patient was seen and examined in the emergency department 2 days ago with a nondiagnostic CAT scan. Patient states that since then her pain has been worsening. We'll check labs pain medication observe and reassess Reevaluation 10:30 patient still in moderate to severe pain not relieved with pain medication. Her white count has increased from 9.3-12 with a slight neutrophil shift Given the persistence and worsening of her pain in the context of a rising WBC with a left shift we'll need to reimage patient to rule out infectious pathology. 11/01/18 13:00 Reevaluation radiologist reviewed imaging from previous day there is evidence of mild enteritis/colitis which explains patient's abdominal discomfort at this time this is consistent with patient's symptomatology we'll cover with antibiotics admitted to the hospital for further management with GI consultation.
[2018-11-01] MEDS ORDERED: MORPHINE SULFATE 2 MG/ML VIAL ONE (12:20)
[2018-11-01] MEDS ORDERED: MORPHINE SULFATE 15 MG PO PRN (15:04)
[2018-11-01] MEDS ORDERED: ALBUTEROL SO4 0.083% IH SOL 2.5 MG/3 ML VIAL.NEB. NEB PRN (15:04)
[2018-11-01] MEDS ORDERED: ONDANSETRON 4 MG TABLET PO PRN (15:04)
[2018-11-01 16:32] VITALS: BMI 16.6
[2018-11-01] MEDS: oxyCODONE HCL 5 MG TABLET PO PRN (16:59)
[2018-11-01] MEDS: ATORVASTATIN CA 20 MG TABLET (FP) PO SCH (17:01)
[2018-11-01] MEDS: DEXTROSE 5%-0.45% SALINE 1,000 ML IV SCH (17:02)
[2018-11-01] MEDS ORDERED: levETIRAcetam 500 MG TABLET (FP) PO ONE ×2 (18:40→21:18)
[2018-11-01] MEDS ORDERED: levETIRAcetam 250 MG TABLET (FP) PO ONE ×2 (18:40→21:18)
[2018-11-01] MEDS: CARVEDILOL 12.5 MG TABLET (FP) PO SCH ×2 (18:46→21:47)
[2018-11-01] MEDS: NIFEdipine E.R 60 MG TABLET (UD) PO SCH (18:47)
[2018-11-01] MEDS: morphine SULFATE IMMEDIATE RELEASE 30 MG TAB PO PRN (18:47)
[2018-11-01] MEDS: HEPARIN NA (PORCINE) 5,000 UNITS/ML 1ML VIAL SQ SCH (21:48)
[2018-11-01] MEDS ORDERED: CARVEDILOL 12.5 MG TABLET (FP) PO SCH (22:00)
[2018-11-01] MEDS ORDERED: levETIRAcetam 500 MG TABLET (FP) PO SCH (22:00)
--- NOTE | 2018-11-01 22:34 | HP ---
Admitting History and Physical - Admission History of Present Illness: Pt is a 62 y/o female with PMH significant for HTN, HLD, GERD, CAD, Chronic back pain and chronic pancreatitis. Pt presented to ER bc of abdominal pain and back pain. The patient reports that she has been experiencing twisting crampy lower abdominal pain over the past 1 week. She states that she initial presented 7 days ago for a headache and was discharged home after negative work up. She states that she presented again 4 days ago for the abdominal pain and was discharged home after a negative work up including CT scan. The patient notes that she was scheduled for a colonoscopy this morning, however noted worsening abdominal pain as well as worsening of her chronic back pain prompting her presentation to the ED for further evaluation. She otherwise denies fevers, chills, SOB, chest pain, nausea, vomiting, or changes with urination or bowel movements. In the ER pt found to have a WBC of [address] scan abd/pe;vis was [id number] wc showed poswsible colitis. - Past Medical History [employer]: Yes: Seizure Cardiovascular: Yes: CAD, HTN, [place], Hyperlipdemia, Other Pulmonary: Yes: COPD Gastrointestinal: Yes: Constipation, Other (Chronic pancreatitis) Musculoskeletal: Yes: Chronic low back pain - Past Surgical History Past Surgical History: Yes: Carotid Endarterectomy - Smoking History Smoking history: Current every day smoker Have you smoked in the past 12 months: Yes Aproximately how many cigarettes per day: 5 - Alcohol/Substance Use Hx Alcohol Use: No Number of Drinks Daily: 10 History of Substance Use: reports: Marijuana (Daily), Prescription (morphine 75 mg per day) - Social History ADL: Independent Home Medications - Allergies Allergies/Adverse Reactions: Allergies Allergy/AdvReac Type Severity Reaction Status Date / Time No Known Drug Allergies Allergy Verified 11/01/18 06:35 - Home Medications Home Medications: Ambulatory Orders Carvedilol [Coreg -] 12.5 mg PO BID 03/26/17 Levothyroxine [Synthroid -] 75 mcg PO DAILY 03/26/17 Morphine Sulfate 15 mg PO BID PRN 03/26/17 Nifedipine ER [Procardia XL -] 60 mg PO DAILY 03/26/17 levETIRAcetam [Keppra -] 750 mg PO BID #60 tablet 03/29/17 oxyCODONE HCL [Roxicodone -] 5 mg PO Q12H PRN tablet MDD 2 05/15/18 Atorvastatin Calcium 20 mg PO DAILY 10/15/18 Metoclopramide HCl 5 mg PO ASDIR 10/15/18 Ibuprofen [Motrin -] 600 mg PO TID PRN #21 tablet 10/25/18 Ondansetron HCl [Zofran] 4 mg PO TID PRN #12 tablet 10/25/18 Albuterol 0.083% Nebulizer Kathi [Ventolin 0.083% Nebulizer Soln -] 1 neb NEB Q6H PRN 11/01/18 Family Disease History - Family Disease History Family History: Unremarkable Review of Systems - Review of Systems Constitutional: reports: No Symptoms HENT: reports: No Symptoms Neck: reports: No Symptoms Cardiovascular: reports: No Symptoms Respiratory: reports: No Symptoms Physical Examination Vital Signs: Vital Signs Temperature 98 F 11/01/18 20:42 Pulse Rate 60 11/01/18 20:42 Respiratory Rate 18 11/01/18 20:42 Blood Pressure 154/68 11/01/18 20:42 O2 Sat by Pulse Oximetry (%) 97 11/01/18 15:08 Constitutional: Yes: Thin HENT: Yes: WNL Neck: Yes: WNL, Supple Cardiovascular: Yes: WNL, Regular Rate and Rhythm Respiratory: Yes: WNL, Regular, CTA Bilaterally Gastrointestinal: Yes: Other (Generalized tenderness on palpation (-) guarding/ rebound) Musculoskeletal: Yes: WNL Extremities: Yes: WNL Edema: No Neurological: Yes: WNL, Alert, Oriented ...Motor Strength: WNL Labs: CBC, BMP 11/01/18 07:51 11/01/18 07:51 Problem List - Problems (1) Abdominal pain Assessment/Plan: ?Colitis vs pancreatic disease Spoke to GI Dr Gonzalez at length and pt to be transferred to [facility] IV antibxs/IVF Follow WBC Code(s): R10.9 - UNSPECIFIED ABDOMINAL PAIN Qualifiers: Abdominal location: unspecified location Qualified Code(s): R10.9 - Unspecified abdominal pain (2) Chronic pain Code(s): G89.29 - OTHER CHRONIC PAIN (3) HLD (hyperlipidemia) Code(s): E78.5 - HYPERLIPIDEMIA, UNSPECIFIED (4) HTN (hypertension) Assessment/Plan: BP stable Code(s): I10 - ESSENTIAL (PRIMARY) HYPERTENSION (5) Hypothyroidism Assessment/Plan: Cont levothyroxine Code(s): E03.9 - HYPOTHYROIDISM, UNSPECIFIED (6) Sciatica Code(s): M54.30 - SCIATICA, UNSPECIFIED SIDE (7) Seizure Code(s): R56.9 - UNSPECIFIED CONVULSIONS (8) COPD (chronic obstructive pulmonary disease) Assessment/Plan: Cont inhalers Code(s): J44.9 - CHRONIC OBSTRUCTIVE PULMONARY DISEASE, UNSPECIFIED (9) CAD (coronary artery disease) Code(s): I25.10 - ATHSCL HEART DISEASE OF [place] CORONARY ARTERY W/O ANG PCTRS
[2018-11-02] MEDS ORDERED: MORPHINE SULFATE 2 MG/ML VIAL IVPUSH ONE ×2 (01:31→10:30)
[2018-11-02] MEDS: oxyCODONE HCL 5 MG TABLET PO PRN ×2 (04:34→16:24)
[2018-11-02] MEDS: morphine SULFATE IMMEDIATE RELEASE 30 MG TAB PO PRN (06:52)
[2018-11-02] MEDS ORDERED: LEVOTHYROXINE NA 75 MCG TABLET (FP) PO SCH (07:00)
[2018-11-02 07:44] LABS: BASO % 0.9 % (0-2.0); EOS % 0.9 % (0-4.5); HEMATOCRIT 34.5 % (32.4-45.2); HEMOGLOBIN 12.4 GM/dL (10.7-15.3); LYMPH % 25.5 % (8-40); MCH 34.2 pg (25.7-33.7); MCHC 35.8 g/dl (32.0-36.0); MEAN CELL VOLUME 95.5 fl (80-96); MEAN PLT VOLUME 7.3 fl (7.5-11.1); MONO % 7.9 % (3.8-10.2); NEUT % 64.8 % (42.8-82.8); RBC 3.61 M/mm3 (3.60-5.2); RDW 12.9 % (11.6-15.6); WHITE BLOOD COUNT 6.7 K/mm3 (4.0-10.0)
[2018-11-02 07:49] LABS: ALBUMIN 3.2 g/dl (3.4-5.0); BILIRUBIN,TOTAL 0.5 mg/dL (0.2-1); BLOOD UREA NITROGEN 9.2 mg/dL (7-18); CALCIUM 8.3 mg/dL (8.5-10.1); CREATININE 0.8 mg/dL (0.55-1.3); TOT PROT 5.6 g/dl (6.4-8.2)
[2018-11-02 08:00] LABS: POTASSIUM 2.7 mmol/L (3.5-5.1)
[2018-11-02 08:14] LABS: PLATELET COUNT 264 K/MM3 (134-434)
--- NOTE | 2018-11-02 08:58 | CON.GI ---
Consult Consult Specialty:: GI Referred by:: Dr Chantal Sy Reason for Consultation:: Colitis and abdominal pain - History of Present Illness History of Present Illness: Patient has been having persistent RLQ that began last . Pain is accompanied with nausea, non-bloody diarrhea and poor appetite. Diarrhea is experienced with night awakenings, chills. Denies antibiotic use or recent travel. Patient has history of dilated CBD and was scheduled to have an appointment with Dr Nando Petersen at [facility] but was unable to attend due to RLQ pain. Abdominal CT scan on 10/30/18 shows dilated CBD 1.3cm, minimal to mild intrahepatic biliary duct dilation. MRI--CBD was 1.4 cm Diarrhea has improved. - History Source History Provided By: Patient Limitations to Obtaining History: No Limitations - Past Medical History [employer]: Yes: Seizure Cardio/Vascular: Yes: CAD, HTN, [place], Hyperlipdemia, Other Pulmonary: Yes: COPD Gastrointestinal: Yes: Constipation, Other (Chronic pancreatitis) Musculoskeletal: Yes: Chronic low back pain - Past Surgical History Past Surgical History: Yes: Carotid Endarterectomy - Alcohol/Substance Use Hx Alcohol Use: No Number of Drinks Daily: 10 History of Substance Use: reports: Marijuana (Daily), Prescription (morphine 75 mg per day) - Smoking History Smoking history: Current every day smoker Have you smoked in the past 12 months: Yes Aproximately how many cigarettes per day: 5 - Social History ADL: Independent History of Recent Travel: No Home Medications - Allergies Allergies/Adverse Reactions: Allergies Allergy/AdvReac Type Severity Reaction Status Date / Time No Known Drug Allergies Allergy Verified 11/01/18 06:35 - Home Medications Home Medications: Ambulatory Orders Carvedilol [Coreg -] 12.5 mg PO BID 03/26/17 Levothyroxine [Synthroid -] 75 mcg PO DAILY 03/26/17 Morphine Sulfate 15 mg PO BID PRN 03/26/17 Nifedipine ER [Procardia XL -] 60 mg PO DAILY 03/26/17 levETIRAcetam [Keppra -] 750 mg PO BID #60 tablet 03/29/17 oxyCODONE HCL [Roxicodone -] 5 mg PO Q12H PRN tablet MDD 2 05/15/18 Atorvastatin Calcium 20 mg PO DAILY 10/15/18 Metoclopramide HCl 5 mg PO ASDIR 10/15/18 Ibuprofen [Motrin -] 600 mg PO TID PRN #21 tablet 10/25/18 Ondansetron HCl [Zofran] 4 mg PO TID PRN #12 tablet 10/25/18 Albuterol 0.083% Nebulizer Kathi [Ventolin 0.083% Nebulizer Soln -] 1 neb NEB Q6H PRN 11/01/18 Review of Systems - Review of Systems Constitutional: reports: Loss of Appetite, Unintentional Wgt. Loss, Weakness Eyes: reports: No Symptoms HENT: reports: No Symptoms Neck: reports: No Symptoms Cardiovascular: reports: No Symptoms Respiratory: reports: No Symptoms Gastrointestinal: reports: Abdominal Pain, Diarrhea, Nausea Genitourinary: reports: No Symptoms Breasts: reports: No Symptoms Reported Musculoskeletal: reports: No Symptoms Integumentary: reports: No Symptoms Neurological: reports: No Symptoms Endocrine: reports: No Symptoms Hematology/Lymphatic: reports: No Symptoms Psychiatric: reports: No Symptoms Physical Exam-GI Vital Signs: Vital Signs Temperature 98.4 F 11/02/18 06:00 Pulse Rate 66 11/02/18 06:00 Respiratory Rate 18 11/02/18 06:00 Blood Pressure 134/62 11/02/18 06:00 O2 Sat by Pulse Oximetry (%) 97 11/01/18 21:00 Constitutional: Yes: No Distress, Calm Eyes: Yes: Conjunctiva Clear HENT: Yes: Atraumatic Cardiovascular: Yes: Regular Rate and Rhythm Respiratory: Yes: Regular, CTA Bilaterally Gastrointestinal Inspection: Yes: WNL. No: Ascites, Distention, Hernia, Scars, Other ...Auscultate: Yes: Normoactive Bowel Sounds. No: Hyperactive Bowel Sounds, Hypoactive Bowel Sounds, No Bowel Sounds, Other ...Palpate: Yes: Soft, Tenderness (diffuse but more tender at RLQ). No: Firm/ Rigid, Guarding, Hepatomegaly, Mass, Pulsatile Mass, Splenomegaly, Tenderness, Epigastium, Tenderness, Rebound, Other ...Percussion: Yes: Tympanitic. No: Dullness, Fluid Wave, Other Neurological: Yes: Alert, Oriented Psychiatric: Yes: Alert, Oriented Labs: CBC, BMP 11/02/18 06:29 11/02/18 06:29 Active Medications Generic Name Dose Route Start Last Admin Trade Name Freq PRN Reason Stop Dose Admin Albuterol Sulfate 1 amp 11/01/18 15:04 Ventolin 0.083% Nebulizer Soln - NEB Q6H PRN Dyspnea Atorvastatin Calcium 20 mg 11/01/18 15:15 11/01/18 17:01 Lipitor - PO 20 mg DAILY OSCAR Administration Carvedilol 12.5 mg 11/01/18 18:00 11/01/18 21:47 Coreg - PO 12.5 mg BID OSCAR Administration Heparin Sodium (Porcine) 5,000 unit 11/01/18 22:00 11/01/18 21:48 Heparin - SQ 5,000 unit BID OSCAR Administration Dextrose/Sodium Chloride 1,000 mls @ 75 mls/hr 11/01/18 15:15 11/01/18 17:02 D5-1/2ns - IV 75 mls/hr ASDIR OSCAR Administration Metronidazole 500 mg in 100 mls @ 100 mls/hr 11/01/18 18:00 11/02/18 02:21 Flagyl 500mg Premixed Ivpb - IVPB 100 mls/hr Q8H-IV OSCAR Administration Levofloxacin 500 mg in 100 mls @ 100 mls/hr 11/02/18 10:00 Levaquin 500 Mg Premixed Ivpb - IVPB DAILY [facility] Protocol Levetiracetam 500 mg/ 750 mg 11/01/18 18:00 11/01/18 21:45 Levetiracetam 250 mg PO 750 mg BID OSCAR Administration Levothyroxine Sodium 75 mcg 11/02/18 07:00 11/02/18 06:53 Synthroid - PO 75 mcg DAILY@0700 OSCAR Administration Morphine Sulfate 15 mg 11/01/18 17:55 11/02/18 06:52 Msir - PO 15 mg BID PRN Administration PAIN LEVEL 4 - 10 Nifedipine 60 mg 11/01/18 18:00 11/01/18 18:47 Procardia Xl - PO 60 mg DAILY OSCAR Administration Ondansetron HCl 4 mg 11/01/18 15:04 Zofran - PO TID PRN NAUSEA AND/OR VOMITING Oxycodone HCl 5 mg 11/01/18 15:04 11/02/18 04:34 Roxicodone - PO 5 mg Q12H PRN Administration PAIN LEVEL 6-10 Imaging - Results Cat Scan: Report Reviewed MRI: Report Reviewed Problem List - Problems (1) Colitis Assessment/Plan: r/o infectious etiology R> stool c.diff, stool culture continue Levaquin Code(s): K52.9 - NONINFECTIVE GASTROENTERITIS AND COLITIS, UNSPECIFIED (2) Dilated bile duct Assessment/Plan: r/o sphincter of oddi dyskenisia vs CBD stricture, CBD stone' R> will need EUD/ERCP will await transfer to [facility]--Dr Nando PETERSEN Code(s): K83.8 - OTHER SPECIFIED DISEASES OF BILIARY TRACT
[2018-11-02] MEDS ORDERED: levETIRAcetam 500 MG TABLET (FP) PO ONE (09:20)
[2018-11-02] MEDS ORDERED: levETIRAcetam 250 MG TABLET (FP) PO ONE (09:20)
[2018-11-02] MEDS ORDERED: NIFEdipine E.R 60 MG TABLET (UD) PO SCH (10:00)
[2018-11-02] MEDS: ATORVASTATIN CA 20 MG TABLET (FP) PO SCH (10:08)
[2018-11-02] MEDS: CARVEDILOL 12.5 MG TABLET (FP) PO SCH (10:08)
[2018-11-02] MEDS: HEPARIN NA (PORCINE) 5,000 UNITS/ML 1ML VIAL SQ SCH (10:08)
[2018-11-02] MEDS: NIFEdipine E.R 60 MG TABLET (UD) PO SCH (10:09)
[2018-11-02] MEDS ORDERED: POTASSIUM CHLORIDE TABS 20 MEQ TABLET.ER (FP) PO ONE (10:30)
[2018-11-02] MEDS: KCL 10 MEQ IVPB 10 MEQ/100 ML INFUS.BAG IVPB SCH ×3 (11:45→15:29)
--- NOTE | 2018-11-02 11:57 | EKG ---
Test Reason : Blood Pressure : / mmHG Vent. Rate : 053 BPM Atrial Rate : 053 BPM P-R Int : 202 ms QRS Dur : 078 ms QT Int : 458 ms P-R-T Axes : 067 055 050 degrees QTc Int : 429 ms SINUS BRADYCARDIA MINIMAL VOLTAGE CRITERIA FOR LVH, MAY BE NORMAL VARIANT NONSPECIFIC T WAVE ABNORMALITY WHEN COMPARED WITH ECG OF 30-OCT-2018 13:54, NO SIGNIFICANT CHANGE WAS FOUND Confirmed by WENDY VELÁSQUEZ, MACY ([id number]) on 11/02/2018 11:56:31 AM Referred By: Confirmed By:MACY NGUYEN MD
[2018-11-02] MEDS: DEXTROSE 5%-0.45% SALINE 1,000 ML IV SCH ×2 (13:19→15:30)
[2018-11-02] MEDS ORDERED: MORPHINE SULFATE 2 MG/ML VIAL IVPUSH PRN (16:22)
[2018-11-02] MEDS ORDERED: NICOTINE 21 MG/24 HOURS TOPICAL PATCH TD SCH (16:30)
[2018-11-02 17:19] VITALS: BP 137/65; PULSE 63; TEMP 98.3
== END 2018-11-02 19:41 | disposition short-term general hospital (02) | DRG 445 ==
LOC: SUPCPDRO 06:22 → JER 06:22 → JERBED 12:27 → J8W 15:44
PROVIDERS: ADMIT Internal Medicine; ATTEND Internal Medicine
DX: K83.8 Other specified diseases of biliary tract (principal); K86.1 Other chronic pancreatitis; E87.1 Hypo-osmolality and hyponatremia; K52.9 Noninfective gastroenteritis and colitis, unspecified; I25.10 Atherosclerotic heart disease of native coronary artery without angina pectoris; K21.9 Gastro-esophageal reflux disease without esophagitis; I10 Essential (primary) hypertension; E78.5 Hyperlipidemia, unspecified; G89.29 Other chronic pain; E03.9 Hypothyroidism, unspecified; M54.30 Sciatica, unspecified side; M54.5 Low back pain; I25.2 Old myocardial infarction; J44.9 Chronic obstructive pulmonary disease, unspecified; F17.210 Nicotine dependence, cigarettes, uncomplicated; R56.9 Unspecified convulsions; Z95.5 Presence of coronary angioplasty implant and graft
CPT/HCPCS: 36415; 74019-TC-FY; 80053; 81003; 82150; 82550; 83605; 83690; 84484; 85025; 87040; 87086; 93005; 93010; 99283-25; J0131; J1644

== ENCOUNTER → 2021-11-11 | Day surgery (SDC) | payer OTHER | END | disposition home or self-care (01) | LOC: FMAMMOTONE 10:52 | PROVIDERS: ATTEND Family Medicine Geriatric Medicine | PROC: 0HBT3ZX Excision of Right Breast, Percutaneous Approach, Diagnostic (ICD-10-PCS; principal; 2021-11-11) | DX: Z53.8 Procedure and treatment not carried out for other reasons (principal); R92.1 Mammographic calcification found on diagnostic imaging of breast | CPT/HCPCS: 19081 ==

== ENCOUNTER 2021-12-16 11:09 | Emergency (ER) | payer OTHER ==
[2021-12-16] MEDS ORDERED: ALBUTEROL SO4 2.5/IPRATROPIUM 0.5 INH SOL 3 ML VIAL.NEB. NEB ONE (11:33)
[2021-12-16] MEDS ORDERED: DEXAMETHASONE SOD PHOSPHATE 10 MG/1 ML VIAL ONE (11:34)
[2021-12-16 11:39] VITALS: BP 180/95; PULSE 60; RESP 19; TEMP 98.3; BMI 16.9
[2021-12-16] MEDS ORDERED: CARVEDILOL 12.5 MG TABLET (FP) PO ONE (12:11)
[2021-12-16] MEDS ORDERED: LOSARTAN POTASSIUM 50 MG TABLET PO ONE (12:11)
[2021-12-16] MEDS ORDERED: NIFEdipine E.R 60 MG TABLET PO ONE (12:12)
[2021-12-16] MEDS ORDERED: CARVEDILOL 12.5 MG TABLET (FP) ONE (12:15)
[2021-12-16] MEDS ORDERED: NIFEdipine E.R 60 MG TABLET ONE (12:15)
[2021-12-16] MEDS ORDERED: LOSARTAN POTASSIUM 50 MG TABLET ONE (12:15)
[2021-12-16] MEDS: ALBUTEROL SO4 2.5/IPRATROPIUM 0.5 INH SOL 3 ML VIAL.NEB. NEB SCH ×3 (12:23→13:28)
== END 2021-12-16 13:30 | disposition home or self-care (01) ==
LOC: JER 11:09
PROC: 3E0F7GC Introduction of Other Therapeutic Substance into Respiratory Tract, Via Natural or Artificial Opening (ICD-10-PCS; principal; 2021-12-16)
DX: J44.1 Chronic obstructive pulmonary disease with (acute) exacerbation (principal)
CPT/HCPCS: 0241U-QW; 94640; 99285-25

== ENCOUNTER 2021-12-29 11:46 | Emergency (ER) | payer OTHER ==
[2021-12-29 12:03] VITALS: BP 167/71; PULSE 60; RESP 18; TEMP 97.8; BMI 17.6
== END 2021-12-29 13:08 | disposition home or self-care (01) ==
LOC: JERFT 11:46
DX: M79.675 Pain in left toe(s) (principal); S90.32XA Contusion of left foot, initial encounter
CPT/HCPCS: 73630-TC-LT; 99284-25

== ENCOUNTER 2022-02-28 08:39 | Emergency (ER) | payer OTHER ==
[2022-02-28] MEDS ORDERED: levETIRAcetam 500 MG TABLET (FP) PO ONE ×2 (08:58→09:09)
[2022-02-28] MEDS ORDERED: AZITHROMYCIN 500 MG TABLET PO ONE (09:00)
[2022-02-28] MEDS ORDERED: ALBUTEROL SO4 2.5/IPRATROPIUM 0.5 INH SOL 3 ML VIAL.NEB. NEB ONE ×2 (09:01→09:09)
[2022-02-28] MEDS ORDERED: methylPREDNISolone NA SUCC 125 MG/2 ML VIAL IVPB ONE (09:01)
[2022-02-28 09:08] VITALS: TEMP 97.7; BMI 17.6
[2022-02-28] MEDS ORDERED: methylPREDNISolone NA SUCC 125 MG/2 ML VIAL ONE (09:09)
[2022-02-28] MEDS ORDERED: AZITHROMYCIN 250 MG TABLET ONE (09:10)
[2022-02-28] MEDS ORDERED: LOSARTAN POTASSIUM 50 MG TABLET PO ONE (09:30)
[2022-02-28] MEDS ORDERED: hydrALAZINE HCL 50 MG TABLET (FP) PO ONE (09:32)
[2022-02-28] MEDS ORDERED: NIFEdipine E.R 60 MG TABLET PO SCH (10:00)
[2022-02-28 10:23] LABS: BASO % 0.2 % (0-2.0); EOS % 0.1 % (0-4.5); HEMATOCRIT 42.7 % (32.4-45.2); HEMOGLOBIN 14.7 GM/dL (10.7-15.3); LYMPH % 8.5 % (8-40); MCH 34.3 pg (25.7-33.7); MCHC 34.5 g/dl (32.0-36.0); MEAN CELL VOLUME 99.3 fl (80-96); MONO % 4.4 % (3.8-10.2); NEUT % 86.8 % (42.8-82.8); PLATELET COUNT 258 10^3/uL (134-434); RDW 14.9 % (11.6-15.6); WHITE BLOOD COUNT 10.6 K/mm3 (4.0-10.0)
[2022-02-28] MEDS ORDERED: hydrALAZINE HCL 50 MG TABLET (FP) ONE ×2 (10:32→10:46)
[2022-02-28] MEDS ORDERED: NIFEdipine E.R 60 MG TABLET ONE (10:32)
[2022-02-28] MEDS ORDERED: LOSARTAN POTASSIUM 50 MG TABLET ONE (10:32)
[2022-02-28 10:33] LABS: INR 0.97 (0.83-1.09); PROTHROMBIN TIME (PATIENT) 11.2 SEC (9.7-13.0)
[2022-02-28 10:36] LABS: ACTIVATED PTT 26.4 SECONDS (25.2-36.5)
[2022-02-28 10:46] LABS: ALBUMIN 3.3 g/dl (3.4-5.0); BLOOD UREA NITROGEN 17.6 mg/dL (7-18); CALCIUM 8.9 mg/dL (8.5-10.1); MAGNESIUM 2.2 mg/dL (1.8-2.4)
[2022-02-28 10:49] LABS: CREATININE 0.8 mg/dL (0.55-1.3)
[2022-02-28 10:51] LABS: BILIRUBIN,TOTAL 0.4 mg/dL (0.2-1)
[2022-02-28] MEDS ORDERED: ALBUTEROL SO4 0.083% IH SOL 2.5 MG/3 ML VIAL.NEB. NEB ONE ×2 (12:36→13:04)
[2022-02-28 15:56] VITALS: BP 159/68; PULSE 66; RESP 22
== END 2022-02-28 15:56 | disposition home or self-care (01) ==
LOC: JER 08:39
PROC: 3E0F7GC Introduction of Other Therapeutic Substance into Respiratory Tract, Via Natural or Artificial Opening (ICD-10-PCS; principal; 2022-02-28)
DX: J44.1 Chronic obstructive pulmonary disease with (acute) exacerbation (principal)
CPT/HCPCS: 0241U-QW; 36415; 71045-TC-FY; 80053; 83735; 83880; 84484; 85025; 85610; 85730; 93005; 93010; 93970-TC; 94640; 99284-25

== ENCOUNTER 2022-04-13 10:16 | Emergency (ER) | payer OTHER ==
[2022-04-13 10:35] VITALS: TEMP 98.6; BMI 17.6
[2022-04-13 13:09] LABS: BASO % 1.3 % (0-2.0); EOS % 0.3 % (0-4.5); HEMOGLOBIN 14.9 GM/dL (10.7-15.3); LYMPH % 12.2 % (8-40); MCH 33.7 pg (25.7-33.7); MCHC 33.9 g/dl (32.0-36.0); MEAN CELL VOLUME 99.6 fl (80-96); MEAN PLT VOLUME 7.2 fl (7.5-11.1); MONO % 6.9 % (3.8-10.2); NEUT % 79.3 % (42.8-82.8); PLATELET COUNT 305 10^3/uL (134-434); RBC 4.42 M/mm3 (3.60-5.2); RDW 14.7 % (11.6-15.6); WHITE BLOOD COUNT 9.1 K/mm3 (4.0-10.0)
[2022-04-13 13:21] LABS: ALBUMIN 3.1 g/dl (3.4-5.0); BLOOD UREA NITROGEN 9.5 mg/dL (7-18); CALCIUM 8.9 mg/dL (8.5-10.1)
[2022-04-13 13:24] LABS: CREATININE 0.7 mg/dL (0.55-1.3)
[2022-04-13 13:26] LABS: BILIRUBIN,TOTAL 0.4 mg/dL (0.2-1); TOT PROT 5.8 g/dl (6.4-8.2)
[2022-04-13 13:29] LABS: N-TERMINAL BNP 646.2 pg/ml (5-125)
[2022-04-13] MEDS ORDERED: ONDANSETRON *ODT* 4 MG TABLET ONE (14:36)
[2022-04-13 14:39] VITALS: BP 174/90; PULSE 58; RESP 18
[2022-04-13] MEDS ORDERED: ONDANSETRON *ODT* 4 MG TABLET SL ONE (15:01)
== END 2022-04-13 17:21 | disposition home or self-care (01) ==
LOC: JER 10:16
DX: J44.9 Chronic obstructive pulmonary disease, unspecified (principal); R09.02 Hypoxemia; R26.89 Other abnormalities of gait and mobility; J43.9 Emphysema, unspecified
CPT/HCPCS: 0241U-QW; 36415; 70450-TC; 71046-TC-FY; 80053; 83880; 84484; 85025; 93971-LT; 93971-RT; 99285-25; Q0162

== ENCOUNTER 2022-05-14 11:42 | Emergency (ER) | payer OTHER ==
[2022-05-14 12:19] VITALS: BP 123/67; PULSE 67; RESP 18; TEMP 97.8; BMI 24.4
[2022-05-14] MEDS ORDERED: ACETAMINOPHEN 500 MG TABLET (FP) PO ONE (12:34)
[2022-05-14] MEDS ORDERED: ACETAMINOPHEN 500 MG TABLET (FP) ONE (12:44)
== END 2022-05-14 17:35 | disposition home or self-care (01) ==
LOC: JERFT 11:42
DX: M79.605 Pain in left leg (principal)
CPT/HCPCS: 73502-TC-LT-FY; 73552-TC-LT-FY; 93971-TC; 99284-25

== ENCOUNTER 2022-05-19 17:40 | Inpatient (IN) | payer OTHER ==
[2022-05-19 18:02] VITALS: BMI 17.9
[2022-05-19] MEDS ORDERED: DEXAMETHASONE SOD PHOSPHATE 10 MG/1 ML VIAL IVPUSH ONE (20:44)
[2022-05-19] MEDS ORDERED: ALBUTEROL SO4 2.5/IPRATROPIUM 0.5 INH SOL 3 ML VIAL.NEB. NEB ONE ×2 (20:44→20:54)
[2022-05-19] MEDS ORDERED: LACTATED RINGERS SOLUTION 1000 ML INFUS.BAG IV ONE (20:44)
[2022-05-19] MEDS ORDERED: ACETAMINOPHEN 1000 MG/100 ML BAG IVPB ONE (20:44)
[2022-05-19] MEDS ORDERED: ACETAMINOPHEN INJECTION 100 ML IVPB ONE (20:54)
[2022-05-19] MEDS ORDERED: DEXAMETHASONE SOD PHOSPHATE 10 MG/1 ML VIAL ONE (20:54)
[2022-05-19 21:50] LABS: VENOUS BASE EXCESS 2.9 mmol/L (-2-2); VENOUS O2 SATURATION 46.8 % (70-80); VENOUS PCO2 52.7 mmHg (38-52); VENOUS PH 7.36 (7.310-7.410)
[2022-05-19 21:53] LABS: BASO % 1.1 % (0-2.0); EOS % 0.6 % (0-4.5); HEMATOCRIT 40.1 % (32.4-45.2); HEMOGLOBIN 13.5 GM/dL (10.7-15.3); LYMPH % 20.2 % (8-40); MCH 33.6 pg (25.7-33.7); MCHC 33.7 g/dl (32.0-36.0); MEAN CELL VOLUME 99.5 fl (80-96); MEAN PLT VOLUME 7.5 fl (7.5-11.1); NEUT % 71.1 % (42.8-82.8); PLATELET COUNT 290 10^3/uL (134-434); RBC 4.03 M/mm3 (3.60-5.2); WHITE BLOOD COUNT 10.5 K/mm3 (4.0-10.0)
[2022-05-19 22:01] LABS: PROTHROMBIN TIME (PATIENT) 11.5 SEC (9.7-13.0)
[2022-05-19 22:04] LABS: ACTIVATED PTT 25.2 SECONDS (25.2-36.5)
[2022-05-19 22:14] LABS: ALBUMIN 3.4 g/dl (3.4-5.0); BLOOD UREA NITROGEN 18.6 mg/dL (7-18); CALCIUM 8.9 mg/dL (8.5-10.1); MAGNESIUM 1.8 mg/dL (1.8-2.4)
[2022-05-19 22:17] LABS: CREATININE 0.8 mg/dL (0.55-1.3)
[2022-05-19 22:19] LABS: BILIRUBIN,TOTAL 0.4 mg/dL (0.2-1); TOT PROT 6.2 g/dl (6.4-8.2)
[2022-05-19 22:22] LABS: N-TERMINAL BNP 555.2 pg/ml (5-125)
[2022-05-19] MEDS ORDERED: DOXYCYCLINE INJECTION 100 MG in DEXTROSE 5%-WATER 100 ML IVPB ONE (22:59)
[2022-05-20] MEDS ORDERED: DOXYCYCLINE HYCLATE 100 MG VIAL ONE (00:35)
[2022-05-20] MEDS ORDERED: DOCUSATE SODIUM 100 MG CAPSULE (FP) PO PRN (01:48)
[2022-05-20] MEDS ORDERED: ACETAMINOPHEN 325 MG TABLET (FP) PO PRN (01:48)
[2022-05-20] MEDS ORDERED: levETIRAcetam 500 MG TABLET (FP) PO ONE ×3 (02:02→10:15)
[2022-05-20] MEDS ORDERED: ALBUTEROL SO4 0.083% IH SOL 2.5 MG/3 ML VIAL.NEB. NEB PRN (02:47)
[2022-05-20] MEDS ORDERED: PATIENT'S OWN MEDICATION (NON-FORMULARY) (Metoclopramide Hcl [Metoclopramide Hcl] 5 MG Tab PO SCH (03:00)
[2022-05-20] MEDS ORDERED: ASPIRIN 81 MG CHEWABLE TABLETS PO ONE (05:31)
[2022-05-20 09:58] VITALS: RESP 18
[2022-05-20] MEDS ORDERED: NIFEdipine E.R 60 MG TABLET PO SCH (10:00)
[2022-05-20] MEDS ORDERED: CARVEDILOL 12.5 MG TABLET (FP) PO SCH (10:00)
[2022-05-20] MEDS ORDERED: HEPARIN NA (PORCINE) 5,000 UNITS/ML 1ML VIAL SQ SCH (10:00)
[2022-05-20] MEDS ORDERED: levETIRAcetam 500 MG TABLET (FP) PO SCH (10:00)
[2022-05-20] MEDS ORDERED: LEVOTHYROXINE NA 75 MCG TABLET (FP) PO SCH (10:00)
[2022-05-20] MEDS ORDERED: ATORVASTATIN CA 20 MG TABLET (FP) PO SCH (10:00)
[2022-05-20] MEDS ORDERED: ATORVASTATIN CA 20 MG TABLET (FP) ONE (10:14)
[2022-05-20] MEDS ORDERED: CARVEDILOL 12.5 MG TABLET (FP) ONE (10:14)
[2022-05-20] MEDS ORDERED: NIFEdipine E.R 60 MG TABLET PO ONE (10:15)
[2022-05-20] MEDS ORDERED: HEPARIN NA (PORCINE) 5,000 UNITS/ML 1ML VIAL ONE (10:15)
[2022-05-20] MEDS ORDERED: LEVOTHYROXINE NA 75 MCG TABLET (FP) ONE (11:15)
[2022-05-20 14:02] VITALS: BP 137/69; PULSE 63; TEMP 97.7
== END 2022-05-20 14:20 | disposition home or self-care (01) | DRG 191 ==
LOC: JER 17:40 → JERBED 05-20 01:22
PROVIDERS: ADMIT Internal Medicine; ATTEND Internal Medicine
DX: J44.1 Chronic obstructive pulmonary disease with (acute) exacerbation (principal); F11.20 Opioid dependence, uncomplicated; I25.10 Atherosclerotic heart disease of native coronary artery without angina pectoris; I10 Essential (primary) hypertension; E78.5 Hyperlipidemia, unspecified; R26.81 Unsteadiness on feet; R29.6 Repeated falls; R09.02 Hypoxemia; G40.909 Epilepsy, unspecified, not intractable, without status epilepticus; K21.9 Gastro-esophageal reflux disease without esophagitis; R53.1 Weakness; E03.9 Hypothyroidism, unspecified; G62.9 Polyneuropathy, unspecified; I73.9 Peripheral vascular disease, unspecified; Z95.5 Presence of coronary angioplasty implant and graft
CPT/HCPCS: 0241U-QW; 36415; 70450-TC; 71046-TC-FY; 80053; 82803; 83735; 83880; 84439; 84443; 84479; 84484; 85025; 85610; 85730; 87040; 93005; 93010; 99285-25; J1100; J1644

== ENCOUNTER 2022-08-20 12:48 | Inpatient (IN) | payer OTHER ==
[2022-08-20] MEDS ORDERED: ACETAMINOPHEN 1000 MG/100 ML BAG IVPB ONE (13:43)
[2022-08-20] MEDS ORDERED: methylPREDNISolone NA SUCC 125 MG/2 ML VIAL IVPUSH ONE (13:44)
[2022-08-20] MEDS ORDERED: ACETAMINOPHEN INJECTION 100 ML IVPB ONE (13:57)
[2022-08-20] MEDS ORDERED: methylPREDNISolone NA SUCC 125 MG/2 ML VIAL ONE (13:57)
[2022-08-20] MEDS ORDERED: ALBUTEROL SO4 2.5/IPRATROPIUM 0.5 INH SOL 3 ML VIAL.NEB. NEB ONE ×2 (14:01→14:16)
[2022-08-20] MEDS: ALBUTEROL SO4 2.5/IPRATROPIUM 0.5 INH SOL 3 ML VIAL.NEB. NEB SCH ×3 (14:06→14:55)
[2022-08-20 14:55] LABS: VENOUS BASE EXCESS 4.2 mmol/L (-2-2); VENOUS O2 SATURATION 40.2 % (70-80); VENOUS PCO2 62.6 mmHg (38-52); VENOUS PH 7.33 (7.310-7.410)
[2022-08-20 15:05] LABS: BASO % 0.6 % (0-2.0); EOS % 0.2 % (0-4.5); HEMATOCRIT 39.6 % (32.4-45.2); HEMOGLOBIN 13.6 GM/dL (10.7-15.3); LYMPH % 6.5 % (8-40); MCH 32.6 pg (25.7-33.7); MCHC 34.4 g/dl (32.0-36.0); MEAN CELL VOLUME 94.7 fl (80-96); MEAN PLT VOLUME 7.1 fl (7.5-11.1); MONO % 4.4 % (3.8-10.2); NEUT % 88.3 % (42.8-82.8); PLATELET COUNT 498 10^3/uL (134-434); RBC 4.18 M/mm3 (3.60-5.2); RDW 13.7 % (11.6-15.6); WHITE BLOOD COUNT 19.6 K/mm3 (4.0-10.0)
[2022-08-20 15:08] LABS: EPI CELLS 9 /uL (0-25.1); HYALINE CASTS 1 /uL (0-3.1); URINE APPEARANCE CLEAR; URINE BACTERIA 56 /uL (0-1359); URINE BILIRUBIN NEGATIVE (NEGATIVE); URINE COLOR YELLOW; URINE GLUCOSE (UA) NEGATIVE (NEGATIVE); URINE KETONE NEGATIVE (NEGATIVE); URINE LEUK ESTERASE 1+ (NEGATIVE); URINE NITRITE NEGATIVE (NEGATIVE); URINE PROTEIN NEGATIVE (NEGATIVE); URINE RBC 12 /uL (0-23.9); URINE WBC 12 /uL (0-25.8)
[2022-08-20 15:11] LABS: INR 1.1 (0.83-1.09); PROTHROMBIN TIME (PATIENT) 12.8 SEC (9.7-13.0)
[2022-08-20 15:14] LABS: ACTIVATED PTT 35.5 SECONDS (25.2-36.5)
[2022-08-20] MEDS ORDERED: CEFTRIAXONE 1,000 MG in DEXTROSE 5%-WATER - 50 ML IVPB ONE (15:24)
[2022-08-20] MEDS ORDERED: CEFTRIAXONE 1 GM/50 ML BAG ONE (15:42)
[2022-08-20 15:44] LABS: ALBUMIN 3.4 g/dl (3.4-5.0); BLOOD UREA NITROGEN 17.3 mg/dL (7-18); CALCIUM 9.7 mg/dL (8.5-10.1); MAGNESIUM 1.6 mg/dL (1.8-2.4)
[2022-08-20 15:47] LABS: CREATININE 0.9 mg/dL (0.55-1.3)
[2022-08-20 15:49] LABS: BILIRUBIN,TOTAL 0.4 mg/dL (0.2-1)
[2022-08-20] MEDS ORDERED: AZITHROMYCIN IVPB 500 MG in DEXTROSE 5%-WATER - 250 ML IVPB ONE (15:59)
[2022-08-20] MEDS ORDERED: AZITHROMYCIN IVPB 500 MG/250 ML BAG IVPB ONE (16:58)
[2022-08-20] MEDS ORDERED: DOCUSATE SODIUM 100 MG CAPSULE (FP) PO PRN (18:02)
[2022-08-20] MEDS ORDERED: ACETAMINOPHEN 325 MG TABLET (FP) PO PRN (18:02)
[2022-08-20] MEDS ORDERED: ALBUTEROL SO4 2.5/IPRATROPIUM 0.5 INH SOL 3 ML VIAL.NEB. NEB PRN (18:05)
[2022-08-20] MEDS: DOXYCYCLINE INJECTION 100 MG in DEXTROSE 5%-WATER 100 ML IVPB SCH (21:16)
[2022-08-20] MEDS: HEPARIN NA (PORCINE) 5,000 UNITS/ML 1ML VIAL SQ SCH (21:17)
[2022-08-20] MEDS: CARVEDILOL 12.5 MG TABLET (FP) PO SCH (21:17)
[2022-08-20] MEDS: levETIRAcetam 500 MG TABLET (FP) PO SCH (21:17)
[2022-08-21 02:21] VITALS: BMI 17.6
[2022-08-21] MEDS ORDERED: traMADol HCL 50 MG TABLET PO ONE (05:19)
[2022-08-21] MEDS ORDERED: ONDANSETRON 4 MG/2 ML VIAL IVPUSH ONE (05:26)
[2022-08-21] MEDS: ACETAMINOPHEN 1000 MG/100 ML BAG IVPB PRN ×2 (05:54→13:14)
[2022-08-21] MEDS ORDERED: LEVOTHYROXINE NA 100 MCG TABLET (FP) PO SCH (07:00)
[2022-08-21 09:12] LABS: BASO % 0.3 % (0-2.0); HEMATOCRIT 33.6 % (32.4-45.2); HEMOGLOBIN 12.1 GM/dL (10.7-15.3); MCH 33.7 pg (25.7-33.7); MEAN CELL VOLUME 93.7 fl (80-96); MEAN PLT VOLUME 7.4 fl (7.5-11.1); MONO % 6.6 % (3.8-10.2); NEUT % 83.1 % (42.8-82.8); PLATELET COUNT 415 10^3/uL (134-434); RBC 3.58 M/mm3 (3.60-5.2); RDW 13.4 % (11.6-15.6); WHITE BLOOD COUNT 17.6 K/mm3 (4.0-10.0)
[2022-08-21 09:35] LABS: CALCIUM 8.8 mg/dL (8.5-10.1)
[2022-08-21 09:36] LABS: BLOOD UREA NITROGEN 18.7 mg/dL (7-18)
[2022-08-21 09:39] LABS: CREATININE 0.8 mg/dL (0.55-1.3)
[2022-08-21] MEDS: CEFTRIAXONE 1 GM in DEXTROSE 5%-WATER - 50 ML IVPB SCH (09:46)
[2022-08-21] MEDS: DOXYCYCLINE INJECTION 100 MG in DEXTROSE 5%-WATER 100 ML IVPB SCH ×2 (09:47→21:40)
[2022-08-21] MEDS: HEPARIN NA (PORCINE) 5,000 UNITS/ML 1ML VIAL SQ SCH ×2 (09:47→21:40)
[2022-08-21] MEDS: levETIRAcetam 500 MG TABLET (FP) PO SCH ×2 (09:47→21:40)
[2022-08-21] MEDS: NIFEdipine E.R 60 MG TABLET PO SCH (09:48)
[2022-08-21] MEDS: BUPRENORPHINE/NALOXONE 8 MG/2 MG FILM PACKET SL SCH (09:48)
[2022-08-21] MEDS: CARVEDILOL 12.5 MG TABLET (FP) PO SCH ×2 (09:48→21:39)
[2022-08-21] MEDS: ATORVASTATIN CA 20 MG TABLET (FP) PO SCH (09:48)
[2022-08-21] MEDS ORDERED: ATORVASTATIN CA 20 MG TABLET (FP) PO SCH (10:00)
[2022-08-21] MEDS ORDERED: BUPRENORPHINE/NALOXONE 2 MG/0.5 MG FILM PACKET SL SCH (10:00)
[2022-08-21] MEDS ORDERED: predniSONE 20 MG TABLET (UD) PO ONE (10:00)
[2022-08-21] MEDS ORDERED: POTASSIUM CHLORIDE ORAL LIQUID 20 MEQ/15 ML PO ONE (23:34)
[2022-08-22] MEDS: ACETAMINOPHEN 1000 MG/100 ML BAG IVPB PRN (02:20)
[2022-08-22] MEDS: LEVOTHYROXINE NA 125 MCG TABLET (FP) PO SCH (06:10)
[2022-08-22] MEDS: DOXYCYCLINE INJECTION 100 MG in DEXTROSE 5%-WATER 100 ML IVPB SCH ×2 (10:26→21:25)
[2022-08-22] MEDS: CEFTRIAXONE 1 GM in DEXTROSE 5%-WATER - 50 ML IVPB SCH (10:26)
[2022-08-22] MEDS: BUPRENORPHINE/NALOXONE 8 MG/2 MG FILM PACKET SL SCH (10:26)
[2022-08-22] MEDS: CARVEDILOL 12.5 MG TABLET (FP) PO SCH ×2 (10:27→21:25)
[2022-08-22] MEDS: levETIRAcetam 500 MG TABLET (FP) PO SCH ×2 (10:27→21:24)
[2022-08-22] MEDS: HEPARIN NA (PORCINE) 5,000 UNITS/ML 1ML VIAL SQ SCH ×2 (10:29→21:24)
[2022-08-22] MEDS: ATORVASTATIN CA 20 MG TABLET (FP) PO SCH (10:30)
[2022-08-22] MEDS: NIFEdipine E.R 60 MG TABLET PO SCH (10:30)
[2022-08-22] MEDS: DIVALPROEX NA *ER* EXTEND REL 500 MG TABLET.SA (FP) PO SCH (14:37)
[2022-08-22] MEDS: methylPREDNISolone NA SUCC 40 MG/1 ML VIAL IVPUSH SCH ×2 (16:39→21:24)
[2022-08-22 17:21] LABS: ARTERIAL BLD GAS O2 SATURATION 97.7 % (95-98); ARTERIAL BLOOD GAS PO2 98.9 mmHg (80-100); ARTERIAL BLOOD GAS pH 7.455 (7.350-7.450)
[2022-08-22 17:25] LABS: ALLENS TEST POSITIVE
[2022-08-22] MEDS ORDERED: ACETAMINOPHEN 1000 MG/100 ML BAG IVPB ONE (20:23)
[2022-08-23] MEDS: methylPREDNISolone NA SUCC 40 MG/1 ML VIAL IVPUSH SCH ×4 (02:31→21:09)
[2022-08-23] MEDS: LEVOTHYROXINE NA 125 MCG TABLET (FP) PO SCH (06:09)
[2022-08-23] MEDS: CARVEDILOL 12.5 MG TABLET (FP) PO SCH ×2 (09:36→21:09)
[2022-08-23] MEDS: DIVALPROEX NA *ER* EXTEND REL 500 MG TABLET.SA (FP) PO SCH (09:36)
[2022-08-23] MEDS: levETIRAcetam 500 MG TABLET (FP) PO SCH ×2 (09:37→21:09)
[2022-08-23] MEDS: HEPARIN NA (PORCINE) 5,000 UNITS/ML 1ML VIAL SQ SCH ×2 (09:37→21:09)
[2022-08-23] MEDS: ATORVASTATIN CA 20 MG TABLET (FP) PO SCH (09:38)
[2022-08-23] MEDS: NIFEdipine E.R 60 MG TABLET PO SCH (09:38)
[2022-08-23] MEDS: CEFTRIAXONE 1 GM in DEXTROSE 5%-WATER - 50 ML IVPB SCH (09:38)
[2022-08-23] MEDS: BUPRENORPHINE/NALOXONE 8 MG/2 MG FILM PACKET SL SCH (09:39)
[2022-08-23] MEDS: DOXYCYCLINE INJECTION 100 MG in DEXTROSE 5%-WATER 100 ML IVPB SCH ×2 (10:45→21:09)
[2022-08-23] MEDS: ACETAMINOPHEN 1000 MG/100 ML BAG IVPB PRN (12:50)
[2022-08-24] MEDS: methylPREDNISolone NA SUCC 40 MG/1 ML VIAL IVPUSH SCH ×3 (02:11→17:37)
[2022-08-24] MEDS: LEVOTHYROXINE NA 125 MCG TABLET (FP) PO SCH (06:10)
[2022-08-24 09:26] LABS: HEMATOCRIT 33.1 % (32.4-45.2); HEMOGLOBIN 11.5 GM/dL (10.7-15.3); MCH 32.4 pg (25.7-33.7); MCHC 34.6 g/dl (32.0-36.0); MEAN CELL VOLUME 93.6 fl (80-96); MEAN PLT VOLUME 7.5 fl (7.5-11.1); PLATELET COUNT 433 10^3/uL (134-434); RBC 3.54 M/mm3 (3.60-5.2); RDW 13.3 % (11.6-15.6); WHITE BLOOD COUNT 13.3 K/mm3 (4.0-10.0)
[2022-08-24] MEDS: DIVALPROEX NA *ER* EXTEND REL 500 MG TABLET.SA (FP) PO SCH (09:27)
[2022-08-24] MEDS: CARVEDILOL 12.5 MG TABLET (FP) PO SCH ×2 (09:27→21:48)
[2022-08-24] MEDS: HEPARIN NA (PORCINE) 5,000 UNITS/ML 1ML VIAL SQ SCH ×2 (09:27→21:49)
[2022-08-24] MEDS: BUPRENORPHINE/NALOXONE 8 MG/2 MG FILM PACKET SL SCH (09:28)
[2022-08-24] MEDS: CEFTRIAXONE 1 GM in DEXTROSE 5%-WATER - 50 ML IVPB SCH (09:28)
[2022-08-24] MEDS: levETIRAcetam 500 MG TABLET (FP) PO SCH ×2 (09:28→21:48)
[2022-08-24] MEDS: NIFEdipine E.R 60 MG TABLET PO SCH (09:28)
[2022-08-24] MEDS: ATORVASTATIN CA 20 MG TABLET (FP) PO SCH (09:28)
[2022-08-24] MEDS: ACETAMINOPHEN 1000 MG/100 ML BAG IVPB PRN (09:29)
[2022-08-24] MEDS: DOXYCYCLINE INJECTION 100 MG in DEXTROSE 5%-WATER 100 ML IVPB SCH ×2 (09:29→21:47)
[2022-08-24 09:58] LABS: BLOOD UREA NITROGEN 24.3 mg/dL (7-18); CALCIUM 8.7 mg/dL (8.5-10.1); CREATININE 0.8 mg/dL (0.55-1.3)
[2022-08-24 10:00] LABS: BILIRUBIN,TOTAL 0.3 mg/dL (0.2-1)
[2022-08-24 10:15] LABS: ALBUMIN 2.3 g/dl (3.4-5.0)
[2022-08-24 11:15] LABS: ANISOCYTOSIS 0; HELMET CELLS 0; HOWELL-JOLLY BODIES 0; MACROCYTOSIS 0; OVALOCYTE 0; ROULEAU 0; SICKELED CELLS 0; TARGET CELLS 0; TEAR DROP CELLS 0; TOXIC GRANULATION 0
[2022-08-24] MEDS: ACETAMINOPHEN 325 MG TABLET (FP) PO PRN (20:27)
[2022-08-25] MEDS: methylPREDNISolone NA SUCC 40 MG/1 ML VIAL IVPUSH SCH ×3 (01:51→17:01)
[2022-08-25] MEDS: LEVOTHYROXINE NA 125 MCG TABLET (FP) PO SCH (06:15)
[2022-08-25] MEDS: CARVEDILOL 12.5 MG TABLET (FP) PO SCH ×2 (09:40→21:11)
[2022-08-25] MEDS: NIFEdipine E.R 60 MG TABLET PO SCH (09:41)
[2022-08-25] MEDS: ATORVASTATIN CA 20 MG TABLET (FP) PO SCH (09:41)
[2022-08-25] MEDS: CEFTRIAXONE 1 GM in DEXTROSE 5%-WATER - 50 ML IVPB SCH (09:41)
[2022-08-25] MEDS: DIVALPROEX NA *ER* EXTEND REL 500 MG TABLET.SA (FP) PO SCH (09:41)
[2022-08-25] MEDS: levETIRAcetam 500 MG TABLET (FP) PO SCH ×2 (09:41→21:11)
[2022-08-25] MEDS: DOXYCYCLINE INJECTION 100 MG in DEXTROSE 5%-WATER 100 ML IVPB SCH ×2 (09:42→21:11)
[2022-08-25] MEDS: BUPRENORPHINE/NALOXONE 8 MG/2 MG FILM PACKET SL SCH (09:42)
[2022-08-25] MEDS: HEPARIN NA (PORCINE) 5,000 UNITS/ML 1ML VIAL SQ SCH ×2 (09:44→21:12)
[2022-08-25] MEDS: ACETAMINOPHEN 325 MG TABLET (FP) PO PRN (18:57)
[2022-08-26] MEDS: methylPREDNISolone NA SUCC 40 MG/1 ML VIAL IVPUSH SCH ×3 (01:54→21:18)
[2022-08-26] MEDS: LEVOTHYROXINE NA 125 MCG TABLET (FP) PO SCH (06:27)
[2022-08-26] MEDS: CEFTRIAXONE 1 GM in DEXTROSE 5%-WATER - 50 ML IVPB SCH (09:34)
[2022-08-26] MEDS: BUPRENORPHINE/NALOXONE 8 MG/2 MG FILM PACKET SL SCH (09:35)
[2022-08-26] MEDS: HEPARIN NA (PORCINE) 5,000 UNITS/ML 1ML VIAL SQ SCH ×2 (09:35→21:18)
[2022-08-26] MEDS: CARVEDILOL 12.5 MG TABLET (FP) PO SCH ×2 (09:36→21:19)
[2022-08-26] MEDS: NIFEdipine E.R 60 MG TABLET PO SCH (09:36)
[2022-08-26] MEDS: ATORVASTATIN CA 20 MG TABLET (FP) PO SCH (09:36)
[2022-08-26] MEDS: DOXYCYCLINE INJECTION 100 MG in DEXTROSE 5%-WATER 100 ML IVPB SCH ×2 (09:36→21:18)
[2022-08-26] MEDS: levETIRAcetam 500 MG TABLET (FP) PO SCH ×2 (09:37→21:18)
[2022-08-26] MEDS: DIVALPROEX NA *ER* EXTEND REL 500 MG TABLET.SA (FP) PO SCH (10:40)
[2022-08-26] MEDS: ACETAMINOPHEN 325 MG TABLET (FP) PO PRN ×2 (12:30→18:43)
[2022-08-26 15:05] LABS: BF WBC & OTHER NUCLEATED CELLS 6289 /mm3; BODY FLUID MONOCYTE 6 %
[2022-08-26] MEDS: ENALAPRIL MALEATE 5 MG TABLET PO SCH (15:37)
[2022-08-26] MEDS: IBUPROFEN 400 MG TABLET (FP) PO PRN (15:53)
[2022-08-27] MEDS: ACETAMINOPHEN 325 MG TABLET (FP) PO PRN ×3 (06:57→21:16)
[2022-08-27] MEDS: LEVOTHYROXINE NA 125 MCG TABLET (FP) PO SCH (06:57)
[2022-08-27] MEDS: CEFTRIAXONE 1 GM in DEXTROSE 5%-WATER - 50 ML IVPB SCH (09:03)
[2022-08-27] MEDS: HEPARIN NA (PORCINE) 5,000 UNITS/ML 1ML VIAL SQ SCH (09:04)
[2022-08-27] MEDS: methylPREDNISolone NA SUCC 40 MG/1 ML VIAL IVPUSH SCH ×2 (09:04→21:07)
[2022-08-27] MEDS: levETIRAcetam 500 MG TABLET (FP) PO SCH ×2 (09:05→21:05)
[2022-08-27] MEDS: BUPRENORPHINE/NALOXONE 8 MG/2 MG FILM PACKET SL SCH (09:05)
[2022-08-27] MEDS: NIFEdipine E.R 60 MG TABLET PO SCH (09:05)
[2022-08-27] MEDS: ATORVASTATIN CA 20 MG TABLET (FP) PO SCH (09:05)
[2022-08-27] MEDS: CARVEDILOL 12.5 MG TABLET (FP) PO SCH ×2 (09:05→21:06)
[2022-08-27] MEDS: DIVALPROEX NA *ER* EXTEND REL 500 MG TABLET.SA (FP) PO SCH (09:06)
[2022-08-27] MEDS: ENALAPRIL MALEATE 5 MG TABLET PO SCH (09:06)
[2022-08-27 09:08] LABS: HEMATOCRIT 33.4 % (32.4-45.2); MCH 33.5 pg (25.7-33.7); MCHC 35.8 g/dl (32.0-36.0); MEAN CELL VOLUME 93.6 fl (80-96); MEAN PLT VOLUME 7.6 fl (7.5-11.1); PLATELET COUNT 440 10^3/uL (134-434); RBC 3.57 M/mm3 (3.60-5.2); RDW 13.2 % (11.6-15.6); WHITE BLOOD COUNT 9.9 K/mm3 (4.0-10.0)
[2022-08-27 09:35] LABS: CALCIUM 8.8 mg/dL (8.5-10.1)
[2022-08-27 09:36] LABS: ALBUMIN 2.4 g/dl (3.4-5.0); BLOOD UREA NITROGEN 24.6 mg/dL (7-18)
[2022-08-27 09:39] LABS: CREATININE 0.7 mg/dL (0.55-1.3)
[2022-08-27 09:40] LABS: BILIRUBIN,TOTAL 0.2 mg/dL (0.2-1); TOT PROT 5.9 g/dl (6.4-8.2)
[2022-08-27 10:33] LABS: ANISOCYTOSIS 0; MACROCYTOSIS 1+
[2022-08-27] MEDS: DOXYCYCLINE INJECTION 100 MG in DEXTROSE 5%-WATER 100 ML IVPB SCH ×2 (11:24→21:07)
[2022-08-27] MEDS: IBUPROFEN 400 MG TABLET (FP) PO PRN (14:55)
[2022-08-28] MEDS: LEVOTHYROXINE NA 125 MCG TABLET (FP) PO SCH (06:29)
[2022-08-28] MEDS: levETIRAcetam 500 MG TABLET (FP) PO SCH ×2 (10:49→22:10)
[2022-08-28] MEDS: predniSONE 20 MG TABLET (UD) PO SCH (10:50)
[2022-08-28] MEDS: ENALAPRIL MALEATE 5 MG TABLET PO SCH (10:51)
[2022-08-28] MEDS: CARVEDILOL 12.5 MG TABLET (FP) PO SCH ×2 (10:51→22:10)
[2022-08-28] MEDS: ATORVASTATIN CA 20 MG TABLET (FP) PO SCH (10:51)
[2022-08-28] MEDS: NIFEdipine E.R 60 MG TABLET PO SCH (10:51)
[2022-08-28] MEDS: DOXYCYCLINE INJECTION 100 MG in DEXTROSE 5%-WATER 100 ML IVPB SCH ×3 (10:52→22:59)
[2022-08-28] MEDS: DIVALPROEX NA *ER* EXTEND REL 500 MG TABLET.SA (FP) PO SCH (10:52)
[2022-08-28] MEDS: ACETAMINOPHEN 325 MG TABLET (FP) PO PRN ×2 (11:01→19:40)
[2022-08-28] MEDS: methylPREDNISolone NA SUCC 40 MG/1 ML VIAL IVPUSH SCH (11:06)
[2022-08-29] MEDS: LEVOTHYROXINE NA 125 MCG TABLET (FP) PO SCH (06:10)
[2022-08-29 09:00] VITALS: BP 174/72; PULSE 58; RESP 17; TEMP 97.9
[2022-08-29] MEDS: NIFEdipine E.R 60 MG TABLET PO SCH (09:25)
[2022-08-29] MEDS: ACETAMINOPHEN 325 MG TABLET (FP) PO PRN (09:25)
[2022-08-29] MEDS: CARVEDILOL 12.5 MG TABLET (FP) PO SCH (09:25)
[2022-08-29] MEDS: ATORVASTATIN CA 20 MG TABLET (FP) PO SCH (09:25)
[2022-08-29] MEDS: DIVALPROEX NA *ER* EXTEND REL 500 MG TABLET.SA (FP) PO SCH (09:26)
[2022-08-29] MEDS: predniSONE 20 MG TABLET (UD) PO SCH (09:26)
[2022-08-29] MEDS: levETIRAcetam 500 MG TABLET (FP) PO SCH (09:26)
[2022-08-29] MEDS: ENALAPRIL MALEATE 5 MG TABLET PO SCH (09:26)
[2022-08-29] MEDS: DOXYCYCLINE INJECTION 100 MG in DEXTROSE 5%-WATER 100 ML IVPB SCH (10:35)
[2022-08-30 16:08] LABS: BODY FLUID ALBUMIN 2.1 g/dL (Not Estab.)
== END 2022-08-29 11:51 | disposition home or self-care (01) | DRG 190 ==
LOC: JER 12:48 → JERBED 17:32 → J5S 20:42
PROVIDERS: ADMIT Internal Medicine; ATTEND Internal Medicine
PROC: 0W9B3ZX Drainage of Left Pleural Cavity, Percutaneous Approach, Diagnostic (ICD-10-PCS; principal; 2022-08-25)
PROC: BB4BZZZ Ultrasonography of Pleura (ICD-10-PCS; 2022-08-25)
DX: J44.1 Chronic obstructive pulmonary disease with (acute) exacerbation (principal); E43 Unspecified severe protein-calorie malnutrition; J18.9 Pneumonia, unspecified organism; K86.1 Other chronic pancreatitis; J90 Pleural effusion, not elsewhere classified; F11.20 Opioid dependence, uncomplicated; R64 Cachexia; Z68.1 Body mass index [BMI] 19.9 or less, adult; I25.10 Atherosclerotic heart disease of native coronary artery without angina pectoris; K21.9 Gastro-esophageal reflux disease without esophagitis; I10 Essential (primary) hypertension; E78.5 Hyperlipidemia, unspecified; M54.9 Dorsalgia, unspecified; G40.909 Epilepsy, unspecified, not intractable, without status epilepticus; F17.210 Nicotine dependence, cigarettes, uncomplicated; E03.9 Hypothyroidism, unspecified; I25.2 Old myocardial infarction; J44.0 Chronic obstructive pulmonary disease with (acute) lower respiratory infection
CPT/HCPCS: 0241U-QW; 36415; 36600; 71045-TC-FY; 71250-TC; 76942; 80048; 80053; 81003; 82042; 82150; 82465; 82803; 82945; 83615; 83735; 83880; 83986; 84157; 84443; 84478; 84484; 85025; 85610; 85730; 86850; 86900; 86901; 87040; 87070; 87075; 87086; 87102; 87116; 87205; 87206; 87210; 87899; 88108; 88305-TC; 93005; 93010; 94640; 94761; 97116-GP; 97161-GP; 99285-25; J1644

== ENCOUNTER 2022-10-18 03:56 | Day surgery (SDC) | payer OTHER ==
[~2022-10-18 03:56] MED LIST: IOHEXOL 180 MG/1 ML ML IJ ONE; LIDOCAINE HCL 1% PRESERVATIVE FREE - 30ML VIAL IJ ONE
[2022-10-18] MEDS ORDERED: ACETAMINOPHEN 500 MG TABLET (FP) PO PRN (12:08)
[2022-10-18 15:17] VITALS: BMI 15.6
[2022-10-18] MEDS ORDERED: IOHEXOL 180 MG/1 ML ML IJ ONE ×3 (15:39)
[2022-10-18] MEDS ORDERED: LIDOCAINE HCL 1% PRESERVATIVE FREE - 30ML VIAL IJ ONE (15:39)
[2022-10-18 16:38] VITALS: BP 115/52; PULSE 57; RESP 20; TEMP 97.2
== END 2022-10-18 16:27 | disposition home or self-care (01) ==
LOC: JASU-SURG 03:56
PROVIDERS: ATTEND Pain Medicine Pain Medicine
PROC: 3E0R3BZ Introduction of Anesthetic Agent into Spinal Canal, Percutaneous Approach (ICD-10-PCS; 2022-10-18)
PROC: 3E0R33Z Introduction of Anti-inflammatory into Spinal Canal, Percutaneous Approach (ICD-10-PCS; principal; 2022-10-18 16:30)
DX: M54.16 Radiculopathy, lumbar region (principal)
CPT/HCPCS: 76000-TC-FY

== ENCOUNTER 2022-11-15 05:18 | Day surgery (SDC) | payer OTHER ==
[2022-11-14 09:56] VITALS: BMI 19.5
[~2022-11-15 05:18] MED LIST changes: +DEXAMETHASONE SOD PHOSPHATE 10 MG/1 ML VIAL IM ONE
[2022-11-15] MEDS ORDERED: DEXAMETHASONE SOD PHOSPHATE 10 MG/1 ML VIAL ONE ×2 (07:51→15:06)
[2022-11-15] MEDS ORDERED: LIDOCAINE HCL/PF 1% SDV 5ML VIAL ONE (07:51)
[2022-11-15] MEDS ORDERED: LIDOCAINE HCL 1% PRESERVATIVE FREE - 30ML VIAL IJ ONE (15:18)
[2022-11-15] MEDS ORDERED: IOHEXOL 180 MG/1 ML ML IJ ONE (15:23)
[2022-11-15] MEDS ORDERED: DEXAMETHASONE SOD PHOSPHATE 10 MG/1 ML VIAL IM ONE (15:30)
[2022-11-15] MEDS ORDERED: ACETAMINOPHEN 500 MG TABLET (FP) PO PRN (15:48)
[2022-11-15 15:53] VITALS: RESP 18
[2022-11-15 16:13] VITALS: BP 150/67; PULSE 61; TEMP 97.5
== END 2022-11-15 16:13 | disposition home or self-care (01) ==
LOC: JASU-SURG 05:18
PROVIDERS: ATTEND Pain Medicine Pain Medicine
PROC: 3E0R3BZ Introduction of Anesthetic Agent into Spinal Canal, Percutaneous Approach (ICD-10-PCS; 2022-11-15)
PROC: 3E0R33Z Introduction of Anti-inflammatory into Spinal Canal, Percutaneous Approach (ICD-10-PCS; principal; 2022-11-15 15:00)
DX: M54.16 Radiculopathy, lumbar region (principal)
CPT/HCPCS: 76000-TC-FY; J1100

== ENCOUNTER 2023-04-11 03:45 | Day surgery (SDC) | payer OTHER ==
[2023-04-10 11:21] VITALS: BMI 19.5
[2023-04-11] MEDS ORDERED: LIDOCAINE HCL/PF 1% SDV 5ML VIAL ONE (07:22)
[2023-04-11] MEDS ORDERED: BUPIVACAINE HCL/PF 0.75% 10 ML VIAL ONE (07:22)
[2023-04-11] MEDS ORDERED: LIDOCAINE HCL 1%, 10 MG/ML (50 mL VIAL) INF ONE (09:16)
[2023-04-11] MEDS ORDERED: ACETAMINOPHEN 500 MG TABLET (FP) PO PRN (09:31)
[2023-04-11 10:02] VITALS: RESP 18
[2023-04-11 10:26] VITALS: BP 157/74; PULSE 64; TEMP 97.5
== END 2023-04-11 10:29 | disposition home or self-care (01) ==
LOC: JASU-SURG 03:45
PROVIDERS: ATTEND Pain Medicine Pain Medicine
PROC: 01HY3MZ Insertion of Neurostimulator Lead into Peripheral Nerve, Percutaneous Approach (ICD-10-PCS; principal; 2023-04-11 08:45)
DX: G89.4 Chronic pain syndrome (principal)
CPT/HCPCS: 64555; C1778

== ENCOUNTER 2023-10-03 11:09 | Emergency (ER) | payer OTHER ==
[2023-10-03 11:23] VITALS: BMI 19.5
[2023-10-03] MEDS ORDERED: BACITRACIN ZINC 15 GM TUBE TOPICAL OINTMENT ONE (12:22)
[2023-10-03] MEDS ORDERED: ACETAMINOPHEN 325 MG TABLET (FP) ONE (13:25)
[2023-10-03] MEDS: ACETAMINOPHEN 500 MG TABLET (FP) PO ONE (13:27)
[2023-10-03] MEDS: BACITRACIN ZINC 15 GM TUBE TOPICAL OINTMENT TP ONE (13:28)
[2023-10-03 15:05] VITALS: TEMP 97.8
[2023-10-03 15:34] LABS: ARTERIAL BLD GAS O2 SATURATION 96.9 % (95-98); ARTERIAL BLOOD GAS BASE EXCESS 5.5 mmol/L (-2-2); ARTERIAL BLOOD GAS PO2 90.5 mmHg (80-100); ARTERIAL BLOOD GAS pH 7.418 (7.350-7.450)
[2023-10-03 15:36] LABS: ALLENS TEST POSITIVE
[2023-10-03 17:20] VITALS: BP 164/62; PULSE 55; RESP 16
== END 2023-10-03 17:30 | disposition home or self-care (01) ==
LOC: JER 11:09
DX: T20.10XA Burn of first degree of head, face, and neck, unspecified site, initial encounter (principal); X08.8XXA Exposure to other specified smoke, fire and flames, initial encounter; Y93.G3 Activity, cooking and baking
CPT/HCPCS: 36600; 71046-TC-FY; 82375; 82803; 99284-25

== ENCOUNTER 2024-02-03 08:53 | Inpatient (IN) | payer OTHER ==
[2024-02-03 09:51] LABS: VENOUS BASE EXCESS 7.6 mmol/L (-2-2); VENOUS O2 SATURATION 33.2 % (70-80); VENOUS PCO2 64.6 mmHg (38-52); VENOUS PH 7.357 (7.310-7.410)
[2024-02-03 10:03] LABS: BASO % 0.3 % (0-2.0); EOS % 0.1 % (0-4.5); HEMATOCRIT 39.4 % (32.4-45.2); HEMOGLOBIN 13.2 GM/dL (10.7-15.3); MCH 31.9 pg (25.7-33.7); MCHC 33.4 g/dl (32.0-36.0); MEAN CELL VOLUME 95.6 fl (80-96); MEAN PLT VOLUME 8.4 fl (7.5-11.1); MONO % 5.1 % (3.8-10.2); NEUT % 84.5 % (42.8-82.8); PLATELET COUNT 272 10^3/uL (134-434); RBC 4.13 M/mm3 (3.60-5.2); RDW 13.8 % (11.6-15.6); WHITE BLOOD COUNT 12.9 K/mm3 (4.0-10.0)
[2024-02-03] MEDS ORDERED: ALBUTEROL SO4 2.5/IPRATROPIUM 0.5 INH SOL 3 ML VIAL.NEB. NEB ONE ×2 (10:19→10:48)
[2024-02-03 10:21] LABS: POTASSIUM 3.4 mmol/L (3.5-5.1)
[2024-02-03 10:23] LABS: CALCIUM 9.5 mg/dL (8.5-10.1)
[2024-02-03 10:24] LABS: ALBUMIN 3.2 g/dl (3.4-5.0); BLOOD UREA NITROGEN 25.8 mg/dL (7-18)
[2024-02-03] MEDS: ALBUTEROL SO4 2.5/IPRATROPIUM 0.5 INH SOL 3 ML VIAL.NEB. NEB ONE (10:26)
[2024-02-03] MEDS: ALBUTEROL SO4 2.5/IPRATROPIUM 0.5 INH SOL 3 ML VIAL.NEB. NEB SCH ×2 (10:26→11:25)
[2024-02-03 10:28] LABS: BILIRUBIN,TOTAL 0.4 mg/dL (0.2-1); TOT PROT 6.6 g/dl (6.4-8.2)
[2024-02-03 10:32] LABS: N-TERMINAL BNP 1103.7 pg/ml (5-125)
[2024-02-03 11:26] LABS: HIV INTERPRETATION NEGATIVE (NEGATIVE)
[2024-02-03] MEDS ORDERED: methylPREDNISolone NA SUCC 125 MG/2 ML VIAL ONE (11:41)
[2024-02-03] MEDS ORDERED: CEFTRIAXONE 1 GM/50 ML BAG ONE (11:41)
[2024-02-03] MEDS: methylPREDNISolone NA SUCC 125 MG/2 ML VIAL IVPB ONE (11:47)
[2024-02-03] MEDS: CEFTRIAXONE 1 GM in DEXTROSE 5%-WATER - 100 ML IVPB ONE (11:47)
[2024-02-03] MEDS ORDERED: AZITHROMYCIN IVPB 500 MG/250 ML BAG IVPB ONE (12:58)
[2024-02-03] MEDS: AZITHROMYCIN IVPB 500 MG in DEXTROSE 5%-WATER - 250 ML IVPB ONE (13:11)
[2024-02-03] MEDS ORDERED: ALBUTEROL SO4 2.5/IPRATROPIUM 0.5 INH SOL 3 ML VIAL.NEB. NEB PRN (18:48)
[2024-02-03 18:54] VITALS: BMI 14.1
[2024-02-03] MEDS: methylPREDNISolone NA SUCC 125 MG/2 ML VIAL IVPB SCH (19:50)
[2024-02-03] MEDS: ACETAMINOPHEN 325 MG TABLET (FP) PO ONE (20:23)
[2024-02-04] MEDS: LEVOTHYROXINE NA 100 MCG TABLET (FP) PO SCH (06:09)
[2024-02-04 07:15] LABS: BASO % 0.3 % (0-2.0); HEMATOCRIT 35.8 % (32.4-45.2); HEMOGLOBIN 12.1 GM/dL (10.7-15.3); MCH 32.2 pg (25.7-33.7); MCHC 33.8 g/dl (32.0-36.0); MEAN CELL VOLUME 95.3 fl (80-96); MEAN PLT VOLUME 8.6 fl (7.5-11.1); MONO % 2.5 % (3.8-10.2); NEUT % 86.2 % (42.8-82.8); PLATELET COUNT 236 10^3/uL (134-434); RBC 3.76 M/mm3 (3.60-5.2); RDW 13.4 % (11.6-15.6); WHITE BLOOD COUNT 10.9 K/mm3 (4.0-10.0)
[2024-02-04 07:50] LABS: POTASSIUM 3.7 mmol/L (3.5-5.1)
[2024-02-04 07:57] LABS: ALBUMIN 2.7 g/dl (3.4-5.0); BLOOD UREA NITROGEN 26.2 mg/dL (7-18); CALCIUM 9.1 mg/dL (8.5-10.1)
[2024-02-04 08:00] LABS: BILIRUBIN,TOTAL 0.3 mg/dL (0.2-1); CREATININE 0.8 mg/dL (0.55-1.3); TOT PROT 5.4 g/dl (6.4-8.2)
[2024-02-04] MEDS ORDERED: levETIRAcetam 500 MG TABLET (FP) PO SCH (10:00)
[2024-02-04] MEDS: DIVALPROEX NA *ER* EXTEND REL 500 MG TABLET.SA (FP) PO SCH (10:17)
[2024-02-04] MEDS: NIFEdipine E.R 60 MG TABLET PO SCH (10:17)
[2024-02-04] MEDS: FAMOTIDINE 20 MG TABLET PO SCH (10:17)
[2024-02-04] MEDS: CLOPIDOGREL BISULFATE 75 MG TABLET (FP) PO SCH (10:17)
[2024-02-04] MEDS: DONEPEZIL HCL 5 MG TABLET (FP) PO SCH (10:17)
[2024-02-04] MEDS: CEFTRIAXONE 1 GM in DEXTROSE 5%-WATER - 50 ML IVPB SCH (10:18)
[2024-02-04] MEDS: BUPRENORPHINE/NALOXONE 8 MG/2 MG FILM PACKET SL SCH (10:18)
[2024-02-04] MEDS: ATENOLOL 50 MG TABLET (FP) PO SCH (10:19)
[2024-02-04] MEDS: CHLORTHALIDONE 25 MG TABLET PO SCH (10:19)
[2024-02-04] MEDS: ACETAMINOPHEN 325 MG TABLET (FP) PO PRN (10:30)
[2024-02-04] MEDS: AZITHROMYCIN IVPB 500 MG/250 ML BAG IVPB SCH (11:13)
[2024-02-04] MEDS: BUPRENORPHINE/NALOXONE 1 EACH, BUPRENORPHINE/NALOXONE 1 EACH SL SCH (11:13)
[2024-02-04] MEDS: ATENOLOL CHLORTHALIDONE PO SCH (11:17)
[2024-02-04] MEDS: ONDANSETRON 4 MG TABLET PO PRN (12:22)
[2024-02-04] MEDS: methylPREDNISolone NA SUCC 125 MG/2 ML VIAL IVPUSH SCH (17:20)
[2024-02-04] MEDS: IBUPROFEN 200 MG TABLET PO ONE (20:51)
[2024-02-04] MEDS: ATORVASTATIN CA 80 MG TABLET (FP) PO SCH (21:48)
[2024-02-05] MEDS ORDERED: BUPRENORPHINE/NALOXONE 1 EACH, BUPRENORPHINE/NALOXONE 1 EACH SL SCH (10:00)
[2024-02-06] MEDS: ALBUTEROL SO4 2.5/IPRATROPIUM 0.5 INH SOL 3 ML VIAL.NEB. NEB SCH (11:49)
[2024-02-06] MEDS: BUDESONIDE/FORMETEROL FUMARATE 160/4.5 mcg INHALER IH SCH (12:44)
[2024-02-06] MEDS: methylPREDNISolone NA SUCC 125 MG/2 ML VIAL IVPUSH SCH (17:35)
[2024-02-07] MEDS: BUPRENORPHINE/NALOXONE 1 EACH, BUPRENORPHINE/NALOXONE 1 EACH SL SCH (09:13)
[2024-02-07] MEDS: methylPREDNISolone NA SUCC 40 MG/1 ML VIAL IVPUSH SCH (11:10)
[2024-02-07] MEDS: MULTIVITAMINS (DAILY MVI) TABLET (FP) PO SCH (11:10)
[2024-02-07] MEDS: HEPARIN NA (PORCINE) 5,000 UNITS/ML 1ML VIAL SQ SCH (11:11)
[2024-02-08] MEDS: BUPRENORPHINE/NALOXONE 1 EACH, BUPRENORPHINE/NALOXONE 1 EACH SL SCH (08:12)
[2024-02-08] MEDS: POLYETHYLENE GLYCOL (HEALTHYLAX) 3350 17 GM PACKET PO SCH (12:15)
[2024-02-08] MEDS: DOCUSATE SODIUM 100 MG CAPSULE (FP) PO SCH (12:15)
[2024-02-08] MEDS: SODIUM CHLORIDE NASAL SPRAY 44 ML BOTTLE NS PRN (14:28)
[2024-02-09] MEDS: ONDANSETRON 4 MG/2 ML VIAL IVPUSH ONE (03:42)
[2024-02-09 07:24] VITALS: RESP 18
[2024-02-09 09:16] VITALS: BP 152/68; PULSE 56; TEMP 98.4
== END 2024-02-09 14:20 | disposition home or self-care (01) | DRG 190 ==
LOC: JER 08:53 → JERBED 11:09 → J7W 18:02 → OBSVTOIN 02-04 11:34
PROVIDERS: ADMIT Internal Medicine; ATTEND Internal Medicine
DX: J44.1 Chronic obstructive pulmonary disease with (acute) exacerbation (principal); J96.21 Acute and chronic respiratory failure with hypoxia; I25.10 Atherosclerotic heart disease of native coronary artery without angina pectoris; I10 Essential (primary) hypertension; E78.5 Hyperlipidemia, unspecified; Z99.81 Dependence on supplemental oxygen; G40.909 Epilepsy, unspecified, not intractable, without status epilepticus
CPT/HCPCS: 0241U-QW; 36415; 71045-TC-FY; 80053; 82803; 83880; 84484; 85025; 86803; 87389; 93005; 93010; 94640; 97116-GP; 97161-GP; 99285-25; G0378; J1644

== ENCOUNTER 2024-04-23 22:57 | Emergency (ER) | payer OTHER ==
[2024-04-23 23:42] VITALS: TEMP 99; BMI 23.4
[2024-04-24] MEDS ORDERED: DIPHTH,PERTUSS(ACELL),TET 0.5 ML DISP.SYRIN IM ONE (01:12)
[2024-04-24] MEDS ORDERED: ACETAMINOPHEN 325 MG TABLET (FP) ONE (01:12)
[2024-04-24] MEDS: DIPHTH,PERTUSS(ACELL),TET 0.5 ML DISP.SYRIN IM ONE (01:27)
[2024-04-24] MEDS: ACETAMINOPHEN 325 MG TABLET (FP) PO ONE (01:27)
[2024-04-24 05:21] VITALS: BP 124/62; PULSE 72; RESP 18
== END 2024-04-24 06:45 | disposition home or self-care (01) ==
LOC: JER 22:57
PROC: 0HQ0XZZ Repair Scalp Skin, External Approach (ICD-10-PCS; principal; 2024-04-24)
PROC: 3E0234Z Introduction of Serum, Toxoid and Vaccine into Muscle, Percutaneous Approach (ICD-10-PCS; 2024-04-24)
DX: S01.01XA Laceration without foreign body of scalp, initial encounter (principal); W01.198A Fall on same level from slipping, tripping and stumbling with subsequent striking against other object, initial encounter; Z23 Encounter for immunization
CPT/HCPCS: 12001-25; 70450-TC; 70486-TC; 72125-TC; 90471; 90715; 99284-25

== ENCOUNTER 2024-06-27 16:43 | Inpatient (IN) | payer OTHER ==
[2024-06-27] MEDS: PIPERACILLIN/TAZOB 4.5 GM 4.5 GM in DEXTROSE 5%-WATER 100 ML IVPB ONE (18:45)
[2024-06-27 19:04] LABS: BASO % 0.2 % (0-2.0); HEMATOCRIT 30.6 % (32.4-45.2); HEMOGLOBIN 9.9 GM/dL (10.7-15.3); LYMPH % 6.4 % (8-40); MCH 31.1 pg (25.7-33.7); MCHC 32.3 g/dl (32.0-36.0); MEAN CELL VOLUME 96.1 fl (80-96); MEAN PLT VOLUME 8.4 fl (7.5-11.1); MONO % 8.8 % (3.8-10.2); NEUT % 84.6 % (42.8-82.8); PLATELET COUNT 349 10^3/uL (134-434); RBC 3.18 M/mm3 (3.60-5.2); WHITE BLOOD COUNT 15.3 K/mm3 (4.0-10.0)
[2024-06-27 19:09] LABS: VENOUS BASE EXCESS 1.2 mmol/L (-2-2); VENOUS O2 SATURATION 48.2 % (70-80); VENOUS PH 7.342 (7.310-7.410)
[2024-06-27] MEDS ORDERED: PIPERACILLIN/TAZOB 4.5 GM 4.5 GM/100 ML BAG IVPB ONE (19:11)
[2024-06-27 19:21] LABS: POTASSIUM 5.9 mmol/L (3.5-5.1)
[2024-06-27 19:23] LABS: CALCIUM 8.7 mg/dL (8.5-10.1)
[2024-06-27 19:24] LABS: ALBUMIN 2.3 g/dl (3.4-5.0); BLOOD UREA NITROGEN 30.2 mg/dL (7-18)
[2024-06-27 19:27] LABS: CREATININE 0.9 mg/dL (0.55-1.3)
[2024-06-27 19:28] LABS: BILIRUBIN,TOTAL 0.6 mg/dL (0.2-1)
[2024-06-27] MEDS ORDERED: VANCOMYCIN 1 GM PREMIX (F) 1 GM/200 ML BAG ONE (19:44)
[2024-06-27 20:36] LABS: HIV INTERPRETATION NEGATIVE (NEGATIVE)
[2024-06-27] MEDS: VANCOMYCIN 1,000 MG in DEXTROSE 5%-WATER - 250 ML IVPB ONE (20:50)
[2024-06-27] MEDS: LACTATED RINGERS SOLUTION 1000 ML INFUS.BAG IV ONE (20:50)
[2024-06-27 21:04] LABS: ACTIVATED PTT 33.6 SECONDS (25.2-36.5); INR 1.07 (0.83-1.09); PROTHROMBIN TIME (PATIENT) 11.8 SEC (9.7-13.0)
[2024-06-27] MEDS ORDERED: DOCUSATE SODIUM 100 MG CAPSULE (FP) PO PRN (21:05)
[2024-06-27 21:22] LABS: POTASSIUM 3.6 mmol/L (3.5-5.1)
[2024-06-27 21:23] LABS: BLOOD UREA NITROGEN 29.6 mg/dL (7-18); CALCIUM 9.1 mg/dL (8.5-10.1)
[2024-06-27 21:27] LABS: CREATININE 0.8 mg/dL (0.55-1.3)
[2024-06-27] MEDS: ACETAMINOPHEN 325 MG TABLET (FP) PO PRN (21:34)
[2024-06-27 22:10] LABS: EPI CELLS 8 /uL (0-25.1); HYALINE CASTS 0 /uL (0-3.1); URINE APPEARANCE CLEAR; URINE BACTERIA 2605 /uL (0-1359); URINE BILIRUBIN NEGATIVE (NEGATIVE); URINE COLOR YELLOW; URINE GLUCOSE (UA) NEGATIVE (NEGATIVE); URINE KETONE NEGATIVE (NEGATIVE); URINE LEUK ESTERASE NEGATIVE (NEGATIVE); URINE NITRITE POSITIVE (NEGATIVE); URINE PROTEIN NEGATIVE (NEGATIVE); URINE RBC 8 /uL (0-23.9); URINE UROBILINOGEN 0.2 mg/dL (0.2-1.0); URINE WBC 31 /uL (0-25.8)
[2024-06-27] MEDS: DEXTROSE 5%-NORMAL SALINE 1,000 ML IV SCH (23:10)
[2024-06-27] MEDS ORDERED: LEVALBUTEROL HCL 0.63 MG/3 ML VIAL.NEB. IH ONE (23:12)
[2024-06-27] MEDS: LEVALBUTEROL HCL 0.63 MG/3 ML VIAL.NEB. IH SCH (23:18)
[2024-06-27] MEDS: BUPRENORPHINE/NALOXONE 2 MG/0.5 MG FILM PACKET SL SCH (23:19)
[2024-06-27] MEDS: guaiFENesin/D-METHORPHAN TAB.ER.12H PO SCH (23:23)
[2024-06-27] MEDS: levETIRAcetam 250 MG TABLET PO SCH (23:23)
[2024-06-27] MEDS ORDERED: levETIRAcetam 500 MG TABLET (FP) PO ONE (23:23)
[2024-06-28] MEDS: PIPERACILLIN/TAZOB 3.375 GM 3.375 GM in DEXTROSE 5%-WATER - 50 ML IVPB SCH (03:34)
[2024-06-28] MEDS: LEVOTHYROXINE NA 112 MCG TABLET (FP) PO SCH (06:06)
[2024-06-28 09:04] LABS: BASO % 0.2 % (0-2.0); EOS % 0.1 % (0-4.5); HEMATOCRIT 26.8 % (32.4-45.2); HEMOGLOBIN 8.9 GM/dL (10.7-15.3); LYMPH % 10.8 % (8-40); MCH 31.6 pg (25.7-33.7); MCHC 33.1 g/dl (32.0-36.0); MEAN CELL VOLUME 95.4 fl (80-96); MEAN PLT VOLUME 8.3 fl (7.5-11.1); MONO % 8.2 % (3.8-10.2); NEUT % 80.7 % (42.8-82.8); PLATELET COUNT 279 10^3/uL (134-434); RBC 2.81 M/mm3 (3.60-5.2); RDW 16.5 % (11.6-15.6); WHITE BLOOD COUNT 10.8 K/mm3 (4.0-10.0)
[2024-06-28 09:19] LABS: POTASSIUM 3.3 mmol/L (3.5-5.1)
[2024-06-28 09:21] LABS: CALCIUM 8.5 mg/dL (8.5-10.1)
[2024-06-28 09:22] LABS: BLOOD UREA NITROGEN 26.7 mg/dL (7-18)
[2024-06-28 09:25] LABS: CREATININE 0.8 mg/dL (0.55-1.3); PHOSPHOROUS 3.1 mg/dL (2.5-4.9)
[2024-06-28] MEDS: FAMOTIDINE 20 MG TABLET PO SCH (09:27)
[2024-06-28] MEDS: GABAPENTIN 100 MG CAPSULE PO SCH (09:27)
[2024-06-28] MEDS: FOLIC ACID 1 MG TABLET (FP) PO SCH (09:27)
[2024-06-28] MEDS: BUPRENORPHINE/NALOXONE 2 MG/0.5 MG FILM PACKET SL SCH (09:27)
[2024-06-28] MEDS: BUDESONIDE/FORMETEROL FUMARATE 160/4.5 mcg INHALER IH SCH (09:28)
[2024-06-28] MEDS: DIVALPROEX NA *ER* EXTEND REL 500 MG TABLET.SA (FP) PO ONE (09:28)
[2024-06-28] MEDS ORDERED: CLOPIDOGREL BISULFATE 75 MG TABLET (FP) PO SCH (10:00)
[2024-06-28] MEDS: CHLORTHALIDONE 25 MG TABLET PO SCH (11:39)
[2024-06-28] MEDS: ATENOLOL 50 MG TABLET (FP) PO SCH (11:40)
[2024-06-28] MEDS: HEPARIN NA (PORCINE) 5,000 UNITS/ML 1ML VIAL SQ SCH (12:22)
[2024-06-28] MEDS: AMINO ACIDS/PROTEIN HYDROLYS 30 ML LIQUID.PKT GT SCH (17:31)
[2024-06-28] MEDS: VANCOMYCIN 500 MG in DEXTROSE 5%-WATER - 100 ML IVPB ONE (21:57)
[2024-06-28] MEDS: DOCUSATE SODIUM 100 MG CAPSULE (FP) PO SCH (21:58)
[2024-06-28] MEDS: ATORVASTATIN CA 80 MG TABLET (FP) PO SCH (21:58)
[2024-06-29] MEDS: MULTIVITAMINS (DAILY MVI) TABLET (FP) PO SCH (09:08)
[2024-06-29] MEDS: POLYETHYLENE GLYCOL (HEALTHYLAX) 3350 17 GM PACKET PO PRN (09:09)
[2024-06-29 12:30] LABS: BASO % 0.3 % (0-2.0); HEMATOCRIT 25.4 % (32.4-45.2); HEMOGLOBIN 8.3 GM/dL (10.7-15.3); LYMPH % 6.9 % (8-40); MCH 31.2 pg (25.7-33.7); MCHC 32.6 g/dl (32.0-36.0); MEAN CELL VOLUME 95.5 fl (80-96); MEAN PLT VOLUME 8.1 fl (7.5-11.1); MONO % 4.9 % (3.8-10.2); NEUT % 87.9 % (42.8-82.8); PLATELET COUNT 268 10^3/uL (134-434); RBC 2.66 M/mm3 (3.60-5.2); RDW 16.6 % (11.6-15.6)
[2024-06-29 13:21] LABS: CHLORIDE 105 mmol/L (98-107); SODIUM 141 mmol/L (136-145)
[2024-06-29 13:23] LABS: CALCIUM 7.9 mg/dL (8.5-10.1)
[2024-06-29 13:24] LABS: BLOOD UREA NITROGEN 19.9 mg/dL (7-18); CO2 32 mmol/L (21-32); GLUCOSE,RANDOM 161 mg/dL (74-106)
[2024-06-29 13:27] LABS: CREATININE 0.8 mg/dL (0.55-1.3); SGOT/AST 37 U/L (15-37); SGPT/ALT 18 U/L (13-61)
[2024-06-29 13:28] LABS: BILIRUBIN,TOTAL 0.3 mg/dL (0.2-1)
[2024-06-29] MEDS: DIVALPROEX NA *ER* EXTEND REL 500 MG TABLET.SA (FP) PO SCH (13:28)
[2024-06-29 13:30] LABS: ALK PHOS 104 U/L (45-117)
[2024-06-29 13:48] LABS: ALBUMIN 1.6 g/dl (3.4-5.0); ANION GAP 4 mmol/L (4-13); POTASSIUM 2.4 mmol/L (3.5-5.1)
[2024-06-29] MEDS: POTASSIUM CHLORIDE TABS 20 MEQ TABLET.ER (FP) PO ONE (14:23)
[2024-06-29] MEDS: KCL 10 MEQ IVPB 10 MEQ/100 ML INFUS.BAG IVPB SCH (14:23)
[2024-06-29] MEDS: VANCOMYCIN 500 MG in DEXTROSE 5%-WATER - 100 ML IVPB SCH (19:54)
[2024-06-29] MEDS: VANCOMYCIN 500 MG in DEXTROSE 5%-WATER - 100 ML IVPB ONE (21:53)
[2024-06-29] MEDS: PIPERACILLIN/TAZOB 3.375 GM 50 ML IVPB SCH (22:37)
[2024-06-30] MEDS: ONDANSETRON 4 MG/2 ML VIAL IVPUSH ONE (00:04)
[2024-06-30] MEDS ORDERED: PIPERACILLIN/TAZOB 3.375 GM 3.375 GM in DEXTROSE 5%-WATER - 50 ML IVPB SCH (03:00)
[2024-06-30] MEDS: PANTOPRAZOLE 40 MG TABLET PO SCH (09:33)
[2024-06-30] MEDS ORDERED: CEFTRIAXONE 1 G/50 ML PREMIX 50 ML IVPB SCH (10:00)
[2024-06-30 11:25] LABS: BASO % 0.5 % (0-2.0); EOS % 0.2 % (0-4.5); HEMATOCRIT 23.7 % (32.4-45.2); HEMOGLOBIN 7.6 GM/dL (10.7-15.3); LYMPH % 14.7 % (8-40); MCH 30.7 pg (25.7-33.7); MEAN CELL VOLUME 95.9 fl (80-96); MEAN PLT VOLUME 8.2 fl (7.5-11.1); NEUT % 80.6 % (42.8-82.8); PLATELET COUNT 290 10^3/uL (134-434); RBC 2.47 M/mm3 (3.60-5.2); RDW 16.9 % (11.6-15.6); WHITE BLOOD COUNT 11.3 K/mm3 (4.0-10.0)
[2024-06-30 11:39] LABS: ALBUMIN 1.6 g/dl (3.4-5.0); BLOOD UREA NITROGEN 19.4 mg/dL (7-18)
[2024-06-30 11:43] LABS: CREATININE 0.8 mg/dL (0.55-1.3); IRON SERUM 17 ug/dL (50-175)
[2024-06-30 11:44] LABS: BILIRUBIN,TOTAL 0.3 mg/dL (0.2-1); TOTAL IRON BINDING CAPACITY 156 ug/dL (250-450)
[2024-06-30] MEDS: DEXTROSE 5%-0.45% SALINE 1,000 ML IV SCH (12:34)
[2024-06-30] MEDS ORDERED: POTASSIUM CHLORIDE TABS 20 MEQ TABLET.ER (FP) PO SCH (13:00)
[2024-06-30] MEDS: POTASSIUM CHLORIDE ORAL LIQUID 20 MEQ/15 ML PO ONE (13:03)
[2024-06-30] MEDS: BUPRENORPHINE/NALOXONE 2 MG/0.5 MG FILM PACKET SL SCH (21:49)
[2024-06-30] MEDS ORDERED: BUPRENORPHINE/NALOXONE 2 MG/0.5 MG FILM PACKET SL SCH (22:00)
[2024-07-01] MEDS: MELATONIN 5 MG TABLETS PO ONE (00:47)
[2024-07-02 08:37] LABS: BASO % 0.5 % (0-2.0); HEMATOCRIT 34.2 % (32.4-45.2); HEMOGLOBIN 11.2 GM/dL (10.7-15.3); LYMPH % 14.3 % (8-40); MCH 30.7 pg (25.7-33.7); MCHC 32.9 g/dl (32.0-36.0); MEAN CELL VOLUME 93.2 fl (80-96); MEAN PLT VOLUME 8.3 fl (7.5-11.1); MONO % 7.6 % (3.8-10.2); NEUT % 76.6 % (42.8-82.8); PLATELET COUNT 291 10^3/uL (134-434); RBC 3.66 M/mm3 (3.60-5.2); RDW 16.9 % (11.6-15.6); WHITE BLOOD COUNT 8.1 K/mm3 (4.0-10.0)
[2024-07-02 08:58] LABS: POTASSIUM 3.4 mmol/L (3.5-5.1)
[2024-07-02 09:04] LABS: ALBUMIN 1.5 g/dl (3.4-5.0); CALCIUM 8.4 mg/dL (8.5-10.1)
[2024-07-02 09:05] LABS: BLOOD UREA NITROGEN 11.2 mg/dL (7-18)
[2024-07-02 09:08] LABS: CREATININE 0.6 mg/dL (0.55-1.3)
[2024-07-02 09:09] LABS: BILIRUBIN,TOTAL 0.3 mg/dL (0.2-1); TOT PROT 5.3 g/dl (6.4-8.2)
[2024-07-02] MEDS: ALBUTEROL SO4 0.083% IH SOL 2.5 MG/3 ML VIAL.NEB. NEB PRN (19:45)
[2024-07-03 09:52] LABS: BASO % 0.4 % (0-2.0); EOS % 0.9 % (0-4.5); HEMATOCRIT 33.5 % (32.4-45.2); HEMOGLOBIN 11.2 GM/dL (10.7-15.3); LYMPH % 15.4 % (8-40); MCH 30.8 pg (25.7-33.7); MCHC 33.4 g/dl (32.0-36.0); MEAN CELL VOLUME 92.3 fl (80-96); MEAN PLT VOLUME 7.9 fl (7.5-11.1); MONO % 8.1 % (3.8-10.2); NEUT % 75.2 % (42.8-82.8); PLATELET COUNT 288 10^3/uL (134-434); RBC 3.63 M/mm3 (3.60-5.2); RDW 16.7 % (11.6-15.6); WHITE BLOOD COUNT 8.4 K/mm3 (4.0-10.0)
[2024-07-03 09:56] LABS: ALBUMIN 1.5 g/dl (3.4-5.0); CALCIUM 8.2 mg/dL (8.5-10.1)
[2024-07-03 10:00] LABS: CREATININE 0.6 mg/dL (0.55-1.3)
[2024-07-03 10:01] LABS: BILIRUBIN,TOTAL 0.5 mg/dL (0.2-1); TOT PROT 5.3 g/dl (6.4-8.2)
[2024-07-03] MEDS: levETIRAcetam 500 MG TABLET (FP) PO SCH (10:58)
[2024-07-03] MEDS: ACETAMINOPHEN 325 MG TABLET (FP) PO ONE (19:15)
[2024-07-03] MEDS: ACETAMINOPHEN 1000 MG/100 ML BAG IVPB ONE (19:17)
[2024-07-03] MEDS: POTASSIUM CHLORIDE ORAL LIQUID 20 MEQ/15 ML PO ONE (19:35)
[2024-07-03] MEDS: DEXTROSE 5%-0.45% SALINE 990 ML with POTASSIUM CHLORIDE 20 MEQ IV SCH (20:20)
[2024-07-03] MEDS: SULFAMETHOXAZOLE/TRIMETHOPRIM 800MG/160MG D.S. TABLET PO SCH (21:05)
[2024-07-04] MEDS: AMINO ACIDS/PROTEIN HYDROLYS 30 ML LIQUID.PKT PO SCH (09:10)
[2024-07-04 09:35] LABS: BASO % 0.4 % (0-2.0); EOS % 2.1 % (0-4.5); HEMATOCRIT 34.2 % (32.4-45.2); HEMOGLOBIN 11.5 GM/dL (10.7-15.3); LYMPH % 17.1 % (8-40); MCH 30.8 pg (25.7-33.7); MCHC 33.8 g/dl (32.0-36.0); MEAN CELL VOLUME 91.2 fl (80-96); MEAN PLT VOLUME 7.8 fl (7.5-11.1); NEUT % 71.4 % (42.8-82.8); PLATELET COUNT 275 10^3/uL (134-434); RBC 3.75 M/mm3 (3.60-5.2); RDW 16.3 % (11.6-15.6); WHITE BLOOD COUNT 8.9 K/mm3 (4.0-10.0)
[2024-07-04 10:32] LABS: POTASSIUM 3.8 mmol/L (3.5-5.1)
[2024-07-04 10:35] LABS: CALCIUM 8.1 mg/dL (8.5-10.1)
[2024-07-04 10:36] LABS: BLOOD UREA NITROGEN 14.9 mg/dL (7-18)
[2024-07-04 10:39] LABS: CREATININE 0.6 mg/dL (0.55-1.3)
[2024-07-04] MEDS: D5-1/2NS+20 MEQ KCL - 20 MEQ/1,000 ML INFUS.BAG IV SCH (18:04)
[2024-07-04] MEDS: FAMOTIDINE 20 MG/50 ML IVPB 20 MG/50 ML MG IVPB ONE (20:49)
[2024-07-05 06:36] VITALS: RESP 18
[2024-07-05 09:54] LABS: BASO % 0.7 % (0-2.0); EOS % 1.8 % (0-4.5); HEMATOCRIT 34.1 % (32.4-45.2); HEMOGLOBIN 11.4 GM/dL (10.7-15.3); LYMPH % 17.9 % (8-40); MCHC 33.3 g/dl (32.0-36.0); MEAN PLT VOLUME 7.9 fl (7.5-11.1); MONO % 8.1 % (3.8-10.2); NEUT % 71.5 % (42.8-82.8); PLATELET COUNT 297 10^3/uL (134-434); RBC 3.66 M/mm3 (3.60-5.2); RDW 16.1 % (11.6-15.6); WHITE BLOOD COUNT 8.6 K/mm3 (4.0-10.0)
[2024-07-05 10:14] LABS: POTASSIUM 4.2 mmol/L (3.5-5.1)
[2024-07-05 10:23] LABS: ALBUMIN 1.5 g/dl (3.4-5.0)
[2024-07-05 10:24] LABS: BLOOD UREA NITROGEN 14.3 mg/dL (7-18)
[2024-07-05 10:27] LABS: CREATININE 0.7 mg/dL (0.55-1.3)
[2024-07-05 10:28] LABS: BILIRUBIN,TOTAL 0.2 mg/dL (0.2-1); TOT PROT 5.4 g/dl (6.4-8.2)
[2024-07-05 15:36] VITALS: BMI 16.0
[2024-07-05] MEDS: MAG HYDROX/AL HYDROX/SIMETH 30 ML UNIT-DOSE CUP PO ONE (20:55)
[2024-07-06 06:17] VITALS: BP 159/62; PULSE 80; TEMP 98.5
== END 2024-07-06 06:27 | DRG 193 ==
LOC: JER 16:43 → JERBED 21:05 → J8W 06-28 00:22
PROVIDERS: ADMIT Student in an Organized Health Care Education/Training Program; ATTEND Internal Medicine
DX: J18.9 Pneumonia, unspecified organism (principal); E43 Unspecified severe protein-calorie malnutrition; G93.41 Metabolic encephalopathy; N39.0 Urinary tract infection, site not specified; Z68.1 Body mass index [BMI] 19.9 or less, adult; K86.1 Other chronic pancreatitis; R64 Cachexia; I25.10 Atherosclerotic heart disease of native coronary artery without angina pectoris; K21.9 Gastro-esophageal reflux disease without esophagitis; E78.5 Hyperlipidemia, unspecified; I10 Essential (primary) hypertension; G40.909 Epilepsy, unspecified, not intractable, without status epilepticus; B96.89 Other specified bacterial agents as the cause of diseases classified elsewhere; E03.9 Hypothyroidism, unspecified; K59.00 Constipation, unspecified; R41.82 Altered mental status, unspecified; M54.50 Low back pain, unspecified; Z95.5 Presence of coronary angioplasty implant and graft
CPT/HCPCS: 0241U-QW; 36415; 36430; 70450-TC; 70551-TC; 71045-TC-FY; 80048; 80053; 80164; 80177; 81003; 82140; 82272; 82803; 83540; 83550; 83605; 83735; 84100; 84439; 84443; 84484; 85025; 85610; 85730; 86803; 86850; 86900; 86901; 86922; 87040; 87086; 87186; 87389; 87635; 87899; 93005; 93010; 94640; 97116-GP; 97162-GP; 99285-25; J1644; P9038; P9058